=== PATIENT | male | born 1960 | race Caucasian/White ===

== ENCOUNTER → 2016-09-15 | Outpatient (CLI) | payer OTHER ==
[~2016-09-15] MED LIST: ASPI81TA28 PO; CLOP1TAB15 PO; EPP3/2 IM; HYDR25TA5 PO; MELO15TA4 PO; METO50TA16 PO; OMEP20CA9 PO
[2016-09-15 10:08] LABS: BASO ABS # 0.06 K/uL (0-0.2); COMPLETE YES; EOS % 4.5 %; IG% 0.2 %; LYMPH % 38.5 %; LYMPH ABS # 2.33 K/uL (1.2-3.4); MEAN CELL VOLUME 90.5 fL (80-100); MEAN CORPUSCULAR HEMOGLOBIN 32.5 pg (25-34); MEAN PLATELET VOLUME 11.1 fL (7.4-10.4); MONO % 7.9 %; NEUT % 47.9 %; PLATELET COUNT 181 K/uL (130-400); RED BLOOD COUNT 4.64 M/uL (4.7-6.1); WHITE BLOOD COUNT 6.05 K/uL (4.8-10.8)
[2016-09-15 10:22] LABS: ESTIMATED AVERAGE GLUCOSE 120 mg/dl; HA1C FLAG Normal (Normal)
[2016-09-15 10:35] LABS: ALT/SGPT 26 U/L (12-78); AST/SGOT 15 U/L (15-37); BLOOD UREA NITROGEN 18 mg/dl (7-18); BUN/CREATININE RATIO 20.1 (10-20); CALCIUM 8.8 mg/dl (8.5-10.1); CARBON DIOXIDE 29 mmol/L (21-32); CHLORIDE 105 mmol/L (98-107); CREATININE 0.88 mg/dl (0.60-1.40); GLUCOSE 90 mg/dl (70-99); SODIUM 142 mmol/L (136-145)
[2016-09-15 10:50] LABS: ALB/GLOB RATIO 1.4 (0.9-2); ALKALINE PHOSPHATASE 98 U/L (45-117); CHOLESTEROL 125 mg/dl (0-200); CHOLESTEROL/HDL RATIO 3.7; HDL CHOLESTEROL 34 mg/dl; LDL CHOLESTEROL CALCULATED 74 mg/dl; PROSTATE SPECIFIC ANTIGEN 0.836 ng/ml (0.000-4.000); TRIGLYCERIDES 84 mg/dl (0-150); VERY LOW DENSITY LIPOPROT CALC 17 mg/dl
== END | disposition home or self-care (01) ==
LOC: C.LAB 08:58
PROVIDERS: ATTEND Internal Medicine
DX: I10 Essential (primary) hypertension (principal); R73.01 Impaired fasting glucose; Z12.5 Encounter for screening for malignant neoplasm of prostate; E78.00 Pure hypercholesterolemia, unspecified

== ENCOUNTER → 2017-08-01 | Outpatient (CLI) | payer OTHER | END | disposition home or self-care (01) | LOC: C.RDSM 11:14 | PROVIDERS: ATTEND Orthopaedic Surgery Sports Medicine | DX: M25.512 Pain in left shoulder (principal) ==

== ENCOUNTER → 2017-08-07 | Outpatient (CLI) | payer OTHER ==
--- NOTE | 2017-08-07 08:25 | DIAGNOSTIC IMAGING REPORT ---
R HAND MIN 3 VIEWS CLINICAL HISTORY: Bilateral hand pain. COMPARISON: Right hand radiographs January 17, 2017. FINDINGS: Alignment of the right hand is anatomic. Cortical irregularity of the distal shaft of the right fifth metacarpal is unchanged and suggests an old, healed fracture. No acute fracture or suspicious lesion is identified. No erosions are identified. There is moderate to severe osteoarthritis of the right first carpometacarpal joint. Mild osteoarthrosis noted within several additional articulations. IMPRESSION: 1. Moderate to severe osteoarthritis of the right first carpometacarpal joint. 2. Moderate osteoarthritis of the radiocarpal articulation. 3. No acute fracture. Electronically signed by: Chay Carrillo M.D. 08/07/2017 8:24 AM Dictated Date/Time: 08/07/2017 8:22 AM
--- NOTE | 2017-08-07 08:26 | DIAGNOSTIC IMAGING REPORT ---
L HAND MIN 3 VIEWS HISTORY: 57 years-old Male BILATERAL HAND PAIN acute bilateral hand pain. Pain is most pronounced in the region of the first and second metacarpals. COMPARISON: Right hand radiographs of same day TECHNIQUE: 3 views of the left hand FINDINGS: Mild triscaphe and mild to moderate first carpometacarpal osteoarthritis. Subcortical cystic changes are seen within the first metacarpal head. There is no acute fracture or subluxation identified. Soft tissues are unremarkable. No opaque foreign body. IMPRESSION: 1. No acute fracture or subluxation. 2. Mild triscaphe and mild to moderate first carpometacarpal osteoarthritis. The above report was generated using voice recognition software. It may contain grammatical, syntax or spelling errors. Electronically signed by: Micahel Funes M.D. 08/07/2017 8:25 AM Dictated Date/Time: 08/07/2017 8:23 AM
== END | disposition home or self-care (01) ==
LOC: C.RDSM 13:49
PROVIDERS: ATTEND Physician Assistant
DX: M79.641 Pain in right hand (principal)

== ENCOUNTER 2017-08-24 13:51 | Emergency (ER) | payer OTHER ==
[~2017-08-24] VITALS: Ht 175.3 cm; Wt 76.6 kg
[2017-08-24 13:57] VITALS: Ht 175.3 cm; Wt 76.6 kg
[2017-08-24] MEDS ORDERED: HYDR-5688 PO ×2 (14:06→15:26)
--- NOTE | 2017-08-24 14:59 | DIAGNOSTIC IMAGING REPORT ---
L-SPINE MIN 4 VIEWS ROUTINE CLINICAL HISTORY: Left lower back pain. Recent injury. COMPARISON: None FINDINGS: Alignment of the lumbar spine is anatomic. Vertebral body heights are maintained. There is no acute fracture. Disc spaces are preserved. There is mild multilevel endplate osteophytosis. There is mild multilevel facet arthrosis. Sacroiliac joints are intact. IMPRESSION: 1. No acute lumbar spine fracture or subluxation. 2. Mild multilevel degenerative disc disease and facet arthrosis of the lumbar spine. Electronically signed by: Chay Carrillo M.D. 08/24/2017 2:57 PM Dictated Date/Time: 08/24/2017 2:56 PM
[2017-08-24] MEDS ORDERED: CYCL10TA6 PO (15:26)
[2017-08-24 15:46] VITALS: BP 104/67; PULSE 63; TEMP 36.3; O2SAT 97
--- NOTE | 2017-08-24 17:21 | EMERGENCY ROOM VISIT NOTE ---
History First contact with patient: 14:01 Chief Complaint: BACK PAIN Stated Complaint: SORE BACK History of Present Illness The patient is a 57 year old male who presents to the Emergency Room with complaints of left lower back discomfort for the past 2 days after pushing a tractor in his garage. The patient reports that his back pain is mostly constant, and worsened with movement. He denies any pain extending into the buttock or down the leg. He denies any history of back injuries or chronic low back pain. He does report a history of generalized osteoarthritis of multiple joints. The patient reports that he did have some leftover hydrocodone at home that did help with his pain. He denies any bladder/bowel incontinence, saddle anesthesias or lower extremity weakness. He denies any other recent infections , and currently rates his discomfort a 10 out of 10 in triage. Review of Systems 10 system review was performed and was negative except for pertinent positives and negatives as indicated in history of present illness Past Medical/Surgical History Medical Problems: (1) CVA (cerebral vascular accident) (2) Hypertension (3) Kidney disease Social History Problems: (1) Polio Family History Diabetes mellitus FHx: cancer Hypertension Social History Smoking Status: Current Every Day Smoker Alcohol Use: none Drug Use: marijuana Marital Status: Housing Status: lives with family, lives with significant other Occupation Status: unemployed Current/Historical Medications Scheduled Aspirin (Aspirin Ec), 81 MG PO HS Clopidogrel (Plavix), 75 MG PO QAM Epinephrine (Epipen), 0.3 MG IM UD Hydrochlorothiazide (Hydrochlorothiazide), 25 MG PO QAM Meloxicam (Meloxicam), 15 MG PO QAM Metoprolol Tartrate (Lopressor) (Lopressor), 50 MG PO BID Omeprazole (Prilosec), 20 MG PO QAM Scheduled PRN Cyclobenzaprine Hcl (Flexeril), 10 MG PO TID PRN for spasm Hydrocodone/Acetaminophen 5MG/325MG ([place] 5MG/325MG), 1 TAB PO DAILY PRN for Pain Hydrocodone/Acetaminophen 5MG/325MG ([place] 5MG/325MG), 1-2 TABLET PO Q4H PRN for Pain Physical Exam Vital Signs Date Time Temp Pulse Resp B/P (MAP) Pulse Ox O2 Delivery O2 Flow Rate FiO2 08/24/17 15:46 36.3 63 18 104/67 97 08/24/17 13:57 36.3 63 18 104/67 97 Room Air Physical Exam CONSTITUTIONAL: Healthy and well nourished. Alert and oriented X 3 with positive affect. She appears in mild discomfort from pain. HEENT: Normocephalic, atraumatic. Pupils equal, round and reactive. NECK: Full active range of motion without discomfort. RESPIRATORY: Clear to auscultation bilaterally with no wheezing, crackles, rhonchi or stridor. CARDIOVASCULAR: Regular rate and rhythm with no murmurs, rubs or gallops. GASTROINTESTINAL: Bowel sounds present in all quadrants. Soft and nontender to palpation. MUSCULOSKELETAL: Examination shows tenderness to palpation through the left lumbar paraspinous muscle. Mild rigidity is noted when compared to the right. No focal tenderness through the central lumbar spine or SI joints. Negative logroll. Negative sitting straight leg raise. Ankle plantar/dorsiflexion strength is 5 out of 5. Pedal pulses are intact. INTEGUMENTARY: No rash or other significant dermatologic conditions noted. NEUROLOGIC: No focal neurologic deficits noted. Lower extremity deep tendon reflexes are 2+ and symmetric bilaterally with intact sensation. Medical Decision & Procedures ER Provider Diagnostic Interpretation: My interpretation of lumbar spine x-ray shows mild degenerative changes without evidence for fracture, subluxation, lordotic reversal or spondylolisthesis. Radiologist report is as follows: L-SPINE MIN 4 VIEWS ROUTINE CLINICAL HISTORY: Left lower back pain. Recent injury. COMPARISON: None FINDINGS: Alignment of the lumbar spine is anatomic. Vertebral body heights are maintained. There is no acute fracture. Disc spaces are preserved. There is mild multilevel endplate osteophytosis. There is mild multilevel facet arthrosis. Sacroiliac joints are intact. IMPRESSION: 1. No acute lumbar spine fracture or subluxation. 2. Mild multilevel degenerative disc disease and facet arthrosis of the lumbar spine. ED Course Patient history and physical exam were performed. Nurse's notes were reviewed. Vital signs were reviewed and were normal. The patient appears in mild discomfort. He refused any analgesics while in the emergency department. X- rays of the lumbar spine shows mild degenerative changes without any other acute findings. Was advised that his history and clinical exam are most consistent with a lumbar strain. He was provided a prescription for Flexeril. The patient is currently on Plavix, therefore cannot take NSAIDs; however, it is noted that the patient is on meloxicam 15 mg daily as needed for pain relief. He has been on meloxicam for many years without intolerance. The patient does have a bottle of hydrocodone that was filled last fall. He has approximately 12 pills left in the bottle. I did elect to provide another prescription for hydrocodone in case he needs. I did review the [place] prescription Drug Monitoring Program , showing no concerning red flags. I did encourage the patient to follow-up with his PCP as needed for any persistent symptoms. The patient was happy with plan of care, voiced understanding of all discharge instructions, and rated his discomfort a 4 out of 10 at the conclusion of my exam. Medical Decision [place] Drug Monitoring Program Search Results: patient reviewed within database, no issues identified Medication Reconcilliation Current Medication List: was personally reviewed by me Blood Pressure Screening Patient's blood pressure: Normal blood pressure Impression Primary Impression: Strain of lumbar region Departure Information Prescriptions Hydrocodone/Acetaminophen 5MG/325MG ([place] 5MG/325MG) Tab 1-2 TABLET PO Q4H Y for Pain, #20 TAB For Initial Treatment Prov: Ollie Agarwal PA 08/24/17 Cyclobenzaprine Hcl (FLEXERIL) 10 Mg Tab 10 MG PO TID Y for spasm, #21 TAB Prov: Ollie Agarwal PA 08/24/17 Referrals Adan Stack M.D. (PCP) Patient Instructions My [facility] Problem Qualifiers Primary Impression: Strain of lumbar region Encounter type: initial encounter Qualified Codes: S39.012A - Strain of muscle, fascia and tendon of lower back, initial encounter
== END 2017-08-24 15:49 | disposition home or self-care (01) ==
LOC: C.EDB 13:54 → C.EDD 15:49
DX: S39.012A Strain of muscle, fascia and tendon of lower back, initial encounter (principal); X50.0XXA Overexertion from strenuous movement or load, initial encounter; M19.90 Unspecified osteoarthritis, unspecified site; I10 Essential (primary) hypertension; Z86.73 Personal history of transient ischemic attack (TIA), and cerebral infarction without residual deficits; N28.9 Disorder of kidney and ureter, unspecified; Z83.3 Family history of diabetes mellitus; Z80.9 Family history of malignant neoplasm, unspecified; Z82.49 Family history of ischemic heart disease and other diseases of the circulatory system; F17.210 Nicotine dependence, cigarettes, uncomplicated; Z79.02 Long term (current) use of antithrombotics/antiplatelets; Z79.82 Long term (current) use of aspirin; Z79.899 Other long term (current) drug therapy

== ENCOUNTER → 2017-11-07 | Outpatient (CLI) | payer OTHER ==
[~2017-11-07] MED LIST changes: +HYDR-5688 PO; +MELO-83 PO; -MELO15TA4 PO
== END | disposition home or self-care (01) ==
LOC: C.RDSM 08:17
PROVIDERS: ATTEND Podiatrist
DX: M79.672 Pain in left foot (principal)

== ENCOUNTER → 2018-02-18 | Outpatient (CLI) | payer OTHER | END | disposition home or self-care (01) | LOC: C.RDSM 13:03 | PROVIDERS: ATTEND Family Medicine | DX: M54.12 Radiculopathy, cervical region (principal) ==

== ENCOUNTER 2023-10-05 23:51 | Inpatient (IN) ==
--- OUTSIDE RECORDS SUMMARY | 2023-10-05 23:57 | External Medical Summary | Summary of Care ---
Author Name Unknown Organization [facility] Address [address] [facility] [place] [address] Phone [phone] Care Team Providers Care Yield Improvement Engineer Name Role Phone Omar Frias MD Primary Care Provider [phone] Reason for Visit * Reason Onset Date Comments Test Results 07/04/2023 Encounter Details Date Type Department Care Team (Late st Contact Info) Description 07/04/2023 Telephone Family Practice [facility] [address] [place] [id number] Omar Frias MD [address] [place] [id number] Test Results Allergies Active Allergy Reactions Criticality Noted Date Comments Bee Venom Edema face/lips/tongue,Tachycardia High 0 09/08/2021 Varenicline 08/24/2022 Bad dreams Rosuvastatin 08/24/2022 UNKNOWN documented as of this encounter (statuses as of 10/03/2023) Medications Medication Sig Dispensed Refills Start Date End Date Status Aspirin 81 MG Oral Tablet Delayed Release Take 1 Tablet by mouth every evening. 0 Active Albuterol Sulfate HFA 108 (90 Base) MCG/ACT Inhalation Aerosol Solution 0 10/26/2021 Active Tiotropium [place] Monohydrate 2.5 MCG/ACT Inhalation Aerosol Solution (Spiriva Respimat) DAILY IN THE MORNING 0 03/06/2022 Active Polyethylene Glycol 3350 17 GM/SCOOP Oral Powder Take 17 g by mouth in the morning. 0 Active Losartan Potassium 100 MG Oral Tablet (Cozaar)Indications:HT N, goal below 130/80 Take 1 Tablet by mouth in the morning. 90 Tablet 3 09/21/2022 Active EpiPen 2-Alonzo 0.3 MG/0.3ML Injection Solution Auto-injectorIndicatio ns:Bee sting allergy For a severe reaction: Place orange end against the outer thigh, press firmly, hold in place for 10 seconds and go to the Emergency room. 1 Each 2 10/22/2022 Active Acetaminophen ER 650 MG Oral Tablet Extended Release Take 1 Tablet by mouth in the morning. 0 Active Diclofenac Sodium 1 % External Gel (Voltaren)Indications: Primary osteoarthritis of first carpometacarpal joint of right hand Apply topically to affected area 4 times a day as needed for Pain. Apply 2 grams 4 times daily to hands as needed for pain 100 g 5 12/25/2022 Active PARoxetine HCl 10 MG Oral Tablet (Paxil)Indications:[place] (generalized anxiety disorder) Take 1 Tablet by mouth in the morning. 90 Tablet 3 03/01/2023 Active amLODIPine Besylate 5 MG Oral Tablet (Norvasc)Indications:H TN, goal below 140/90 Take 1 Tablet by mouth in the morning. 90 Tablet 3 03/01/2023 Active Fluticasone-Salmeterol 250-50 MCG/ACT Inhalation Aerosol Powder Breath Activated (Advair Diskus)Indications:IT SYSTEMS ADMINISTRATOR D, group A, by 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 ([facility]) Inhale 1 Puff by mouth in the morning and 1 Puff before bedtime. 60 Each 5 04/02/2023 Active Nicotine 21 MG/24HR Transdermal Patch 24 Hour (Nicoderm CQ)Indications:Cigaret te smoker Place 1 Patch over 24 hours topically on the skin daily. 28 Patch 0 04/04/2023 Active Atorvastatin Calcium 80 MG Oral Tablet (Lipitor) Take 1 Tablet by mouth every evening. 90 Tablet 3 05/08/2023 Active Solifenacin Succinate 5 MG Oral Tablet (VESIcare) take 1 tablet by mouth every morning 30 Tablet 1 06/20/2023 Active traMADol HCl 50 MG Oral Tablet (Ultram)Indications:Ri b pain on left side Take 1 Tablet by mouth every 6 hours as needed for Severe pain. 30 Tablet 0 07/03/2023 Active Hospital, Clinic, or Other Facility Administered Medication Ordered Dose Route Frequency Start Date End Date Status Albuterol Sulfate (Proventil) (2.5 MG/3ML) 0.083% inhalation solution 2.5 mgIndications:COPD, group A, by 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 ([facility]) 2.5 mg NEBULIZER ONCE PRN 04/02/2023 04/01/2024 Acti ve documented as of this encounter (statuses as of 10/03/2023) Active Problems Problem Noted Date Diagnosed Date Gastroesophageal reflux disease without esophagi tis 07/03/2023 Dyslipidemia 07/03/2023 Tobacco use disorder 07/03/2023 COPD, group A, by 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 12/31 Overview: Per COPD GOLD Classification DDD (degenerative disc disease), cervical 2022 Ureteral cancer, left 09/21/2022 HTN, goal below 130/80 09/21/2022 Carotid stenosis, bilateral 09/21/2022 Chronic idiopathic constipation 09/21/2022 History of poliomyelitis 09/21/2022 Primary osteoarthritis involving multiple joints 09/21/2022 TIA (transient ischemic attack) 08/24/2022 Overview: AT 47YO- no residual affects documented as of this encounter (statuses as of 10/03/2023) Resolved Problems Problem Noted Date Diagnosed Date Resolved Date Bladder mass 02/22/2023 07/03/2023 Primary osteoarthritis of fi rst carpometacarpal joint of right hand 12/25/202206/21 RUQ abdominal pain 09/21/2022 COPD, severity to be determined 09/21/2022 01/03/2023 Overview: Per COPD GOLD Classification documented as of this encounter (statuses as of 10/03/2023) Immunizations Name Administration Dates Next Due COVID-19 mRNA, LNP-s, No Pre serve, 2-Dose Series (Glowbl) 06/21/2021,10/08/2020,09/17/2020 COVID-19, LNP-s, No Preserve , Giovani-sucrose, Ages 12+ (Glowbl) 12/15/2021 Covid-19, Mrna, Lnp-s, Pf, B ivalent, 30 Mcg, IM, 12 yrs and above (Pfizer) 05/15/2022 Pneumococcal Conjugate Vacci ne, 20-valent ([id number]) 12/25/2022 Seasonal Influenza, PF, 6 M & above, IM , (FluLaval or Fluzone) 05/03/2020,05/11/2019,06/23/2018,2014,04/21/2015 Seasonal Influenza, Quadriva lent Hd (Fluzone Hd) 04/02/2023 Seasonal Influenza, Recombin ant, RIV4, PF, (Flublock) 05/15/2022,05/03/2020,05/11/2019 TDAP (age 10 and older)(Boostrix) 05/10/2015 Zoster Vaccine Recombinant (Shingrix) 02/01/2022 ,09/25/2021 documented as of this encounter Social History Tobacco Use Types Packs/Day Years Used Date Smoking Tobacco: Former Cigarettes 1 40 0 03/22/1983 - 03/22/2023 Smokeless Tobacco: Never Alcohol Use Standard Drinks/Week Comments Not Currently 0 (1 standard drink = 0.6 oz pur e alcohol) PHQ-2 Answer Date Recorded PHQ Adult Total Score 2 12/04/2022 Hunger Vital Sign Answer Date Recorded Within the past 12 months, y ou worried that your food would run out before you got the money to buy more. Never true 12/26/19 23 Within the past 12 months, t he food you bought just didn't last and you didn't have money to get more. Never true 12/25/2022 Sex and Gender Information Value Date Recorded Sex Assigned at Male 12/25/2022 10:01 AM EDT Gender Identity Male 12/25/2022 10:01 AM EDT Sexual Orientation Straight 12/25/2022 10 :01 AM EDT Job Start Date Occupation Industry Not on file Not on file Not on file documented as of this encounter Miscellaneous Notes * Telephone Encounter - Jessika Castillo LPN - 07/04/2023 2:27 PM EST Still in process. Watch for final result. * Telephone Encounter - Peterson Bright OSA - 07/04/2023 11:38 AM EST Who is Requesting Test Results: Pt daughter Primary Care Provider : Omar Frias MD Tests Results Requested : XR Date of Test : 07/03/23 Location of Test: Ordering Provider: Dr Frias Callback Number: [phone] Patient has been made aware that the turnaround time for test results are typically as follows: Laboratory results = within 2-3 days ([facility]), 3-5 days (Non-[facility], ie. [facility]) Urine Cultures = within 2-3 days depending on growth within the culture Pathology results (biopsy results/PAP) = 1-2 weeks Radiology results = about 1 week Cologuard results = within 2 weeks from the shipment date COVID testing = about 24 hours documented in this encounter Plan of Treatment Upcoming Encounters Date Type Department Care Team (Late st Contact Info) Description 10/15/2023 4:00 PM EDT Procedure Only Urology, [facility] [address] [facility] [place] [id number] Joshua Adan MD [address] [place] [address] 02/18/2024 1:15 PM EDT Office Visit Hematology/Oncology [facility] [place] [address] [facility] [place] [id number] Jacob Rhodes MD [address] [facility] [address] Scheduled Procedures Name Priority Associated Diagnoses Date/Ti me COLONOSCOPY FLEXIBLE PROXIMAL DIAGNOSTIC Recall History of colon polyps Health Maintenance Due Date Last Done Comments HIV Screening 1975 Alpha-1 Antitrypsin 02/17/1976 Hepatitis C Screening 02/17/1976 *COPD SEVERITY VERIFIED BY PFT 09/24/2022 COVID-19 Vaccine ( season) 2023 05/15/2022, 12/15/2021, 06/21/2021, Additional history exists Depression Screening 12/05/2023 12/04/2022 GFR 03/06/2024 03/06/2023, 01/19, 08/24/2022, Additional history exists O2 ASSESSMENT COMPLETED IN PAST YEAR FOR COPD 03/13/2024 03/13/2023 DTaP,Tdap,and Td Vaccines (2 - Td or Tdap) 05/10/2025 05/10/2015 Albumin/Creatinine Ratio 12/25/2025 12/25/2022 Diabetes Screening 03/06/2026 03/06/2023, 0 08/24/2022, 11/05/2011 COLONOSCOPY-EVERY 5 YRS AGES 18-100 09/26/2027 09/25/2022, 09/25/2022 Zoster Vaccines Completed 02/01/2022, 09/25/2021 LUNG CANCER SCREENING - USE SMARTSET [id number] Completed 08/29/2022 Colonoscopy Discontinued 09/25/2022, 09/25/2022 Colorectal Cancer Screening Discontinued Pneumococcal Vaccine: 65+ Years Completed 12/25/2022 AAA Screening Completed 03/07/2023, 02/06/2023 Influenza Vaccine (FLU shot) Completed 04/02/2023, 05/15/2022, 05/03/2020, Additional history exists Cologuard Discontinued Fecal Occult Blood Test Discontinued GARDASIL-HPV IMMUNIZATION SERIES Aged Out No longer eligible based on patient's age to complete this topic Hepatitis B Aged Out No longer eligi ble based on patient's age to complete this topic MENINGOCOCCAL (MENACTRA/MENVEO) Aged Out No longer eligible based on patient's age to complete this topic Sigmoidoscopy Discontinued documented as of this encounter Medical Devices Not on filedocumented as of this encounter Advance Directives Latest Code Status on File Code Status Date Activated Date Inactivated Comments Full Code 03/13/2023 9:32 AM 03/13/2023 4:39 PM This order reflects the patients wishes and were consensually agreed upon. Question Answer Comments Discussion of Advance Directives occurred with: Patient Code Status History Code Status Date Activated Date Inactivated Comments Full Code 03/13/2023 7:07 AM 03/13/2023 9:32 AM This order reflects the patients wishes and were consensually agreed upon. Question Answer Comments Discussion of Advance Directives occurred with: Patient Full Code 10/22/2022 8:32 AM 10/22/2022 2:13 PM This or john paul reflects the patients wishes and were consensually agreed upon. Question Answer Comments Discussion of Advance Directives occurred with: Patient Full Code 10/22/2022 6:33 AM 10/22/2022 8:32 AM This or john paul reflects the patients wishes and were consensually agreed upon. Question Answer Comments Discussion of Advance Directives occurred with: Patient Care Teams Yield Improvement Engineer Relationship Specialty Start Date End Date Omar Frias MD [address] [place] [id number] PCP - General Family Medicine 07/03/23 documented as of this encounter
[2023-10-06] MEDS: NITROGLYCERIN SL 0.4 MG/TAB TAB SL PRN (00:01)
--- NOTE | 2023-10-06 00:12 | Emergency Department Note ---
History of Present Illness General Chief complaint: Heart Alert Stated complaint: HEART ALERT Time Seen by Provider: 10/05/23 23:56 Source: patient, family ( who arrived at the bedside), EMS (I talked to the quality coordinator on the med phone and also gave ALS medical command as well as talked to them upon arrival) and old records reviewed (10/26/22-pulmonary visit for follow-up for COPD and pulmonary fibrosis) Mode of arrival: EMS Limitations: no limitations History of Present Illness Maximum Pain Intensity: 10 This patient is 63-year-old male who is brought in by EMS after having sudden onset of crushing chest pain radiating to his arms. Upon arrival they tell me he was pale and diaphoretic with 10 out of 10 chest pain no shortness of breath he did have some nausea and vomited. No history of cardiac disease. He does have a history of having a stroke and recent bladder cancer. He tells me that he has a strong family history of cardiac disease. I did talk to the paramedics prior to arrival and gave ALS medical command. He had received fentanyl IV for the pain and also nitro x 4. The paramedics called me after the first 1 and transmitted the EKG his pressure had dropped after receiving 1 nitro glycerin into the 60s however he remained stable after that after they opened up the IV fluids. Based on his EKG I did call the heart alert prior to the arrival. Upon arrival the patient is less diaphoretic than he was and the pain is 8 out of 10 but he looks well. Home Medications Medication Instructions Recorded Confirmed Type aspirin 81 mg tablet,delayed 81 mg PO HS 04/09/18 10/06/23 History release metoprolol tartrate 50 mg tablet 50 mg PO BID #60 tabs 07/24/22 10/06/23 Rx (Lopressor) acetaminophen 650 mg 1,300 mg PO Q12H PRN Pain 08/03/22 10/06/23 History tablet,extended release (Tylenol Arthritis Pain) atorvastatin 80 mg tablet 80 mg PO QPM 08/03/22 10/06/23 History ezetimibe 10 mg tablet (Zetia) 10 mg PO QAM #90 tabs 09/24/22 10/06/23 Rx albuterol sulfate 90 mcg/actuation 2 puff inhalation Q6H PRN 10/26/22 10/06/23 Rx aerosol inhaler Shortness Of Breath Or Wheezing #18 grams tiotropium bromide 2.5 2 puff inhalation QAM #4 grams 10/26/22 10/06/23 Rx mcg/actuation mist for inhalation (Spiriva Respimat) albuterol sulfate 2.5 mg/3 mL 2.5 mg inhalation DIRECTED PRN 10/06/23 10/06/23 History (0.083 %) solution for nebulization Shortness Of Breath Or Wheezing amlodipine 5 mg tablet 5 mg PO QAM 10/06/23 10/06/23 History diclofenac sodium 1 % topical gel 2 g topical QID PRN Pain 10/06/23 10/06/23 History (Voltaren Arthritis Pain) epinephrine 0.3 mg/0.3 mL 0.3 mg IM DIRECTED PRN 10/06/23 10/06/23 History injection, auto-injector (EpiPen) anaphylaxis fluticasone 250 mcg-salmeterol 50 1 inh inhalation BID 10/06/23 10/06/23 History mcg/dose blistr powdr for inhalation (Advair Diskus) losartan 100 mg tablet 100 mg PO QAM 10/06/23 10/06/23 History omeprazole 20 mg capsule,delayed 20 mg PO QAM 10/06/23 10/06/23 History release paroxetine HCl 10 mg tablet 10 mg PO QAM 10/06/23 10/06/23 History polyethylene glycol 3350 17 17 g PO DAILY 10/06/23 10/06/23 History gram/dose oral powder (Miralax) solifenacin 5 mg tablet 5 mg PO QAM 10/06/23 10/06/23 History tramadol 50 mg tablet 50 mg PO Q6H PRN Pain 10/06/23 10/06/23 History Allergies Allergy/AdvReac Type Severity Reaction Status Date / Time rosuvastatin [From Crestor] AdvReac Intermediate Headache Verified 10/05/23 23:58 varenicline [From Chantix] AdvReac Intermediate nightmares Verified 10/05/23 23:58 bee venom Allergy Severe Swelling Uncoded 10/05/23 23:58 of Lip/Tongue/Throat Past Med/Surg History Medical History Kidney stones Hyperlipidemia Hypertension History of COVID-19 Sept 2022 > mild COPD (chronic obstructive pulmonary disease) rare res inh use Carotid stenosis S/p CEA 2006 S/p right common carotid artery stent placement 2018 due to recurrent MARVIN stenosis Impaired fasting glucose Hgb A1C 6.0 in 08/2021 Peptic ulcer Facet syndrome, lumbar GERD (gastroesophageal reflux disease) TIA (transient ischemic attack) (01/18/14) Age 47 > then carotid stent placed [place] 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 Kidney disease no specialist Surgical History History of common carotid artery stent placement April 2019 due to recurrent MARVIN stenosis History of colonoscopy [place] teeth extracted H/O carotid endarterectomy (11/08/06) History of shoulder surgery right Family History Father Stroke syndrome Laryngeal cancer Peptic ulcer Mother Myocardial infarction Sister Myocardial infarction Cerebral arterial aneurysm Brother Hypertension Unknown Cardiovascular disorder Cerebral arterial aneurysm Grandfather Skin cancer Social History Smoking Status: Former smoker Tobacco Type: Cigarettes Age Started Using Tobacco: 15; packs per day: 1; Cigarettes Per Day: 20; Second Hand Exposure: Yes; Do You Dip or Chew Tobacco: No; Hx Alcohol Use: No Hx Substance Use: Yes Substance Use Type Other:: occasional > advised Preferred Language: Icelandic Communication Ability: Effective Customer Pricing Manager Required: No Beliefs That Will Affect Care: None marital status: Current Living Situation: Spouse current occupational status: disabled Feels Safe at Home: Yes Assistive Devices: None Review of Systems A total of 10 systems reviewed and were otherwise negative Physical Exam Vital Signs Vital Signs - 24 hr 10/05/23 23:56 10/05/23 23:56 Temperature 36.9 C Temperature Source Oral Pulse Rate 57 L Respiratory Rate 18 Respiratory Effort / Characteristics Non-Labored Spontaneous SOB on Exertion Respiratory Depth Normal Blood Pressure 122/90 Blood Pressure Mean 100 Pulse Oximetry 97 Oxygen Delivery Method Room Air Sepsis Recent Fever Within 48 Hours No Sepsis New/Unexplained Change in Mental Status No Sepsis Action Taken by Nursing No Action Required General: Well developed well nourished middle-age male who appears uncomfortable at times secondary to chest pain but in no acute respiratory distress, breathing comfortably on room air. Normal speech HEENT: Normal cephalic atraumatic. Pupils are equal round and reactive to light. Extraocular movements are intact. Oropharynx is pink with moist mucous membranes. No swelling of the mouth lips or tongue. Neck: Supple with a midline trachea. No meningeal signs or stiffness, no JVD or bruits. No Stridor. Chest: Clear to auscultation bilaterally. No wheezes or rhonchi. No increased work of breathing. Heart: Regular rate and rhythm without murmurs or gallops. Abdomen: Soft nontender, nondistended without rebound guarding or rigidity. Extremities: No cyanosis clubbing or edema. No calf tenderness or assymetry Spine/Back. Non tender to palpation. No CVA tenderness Skin: Good turgor without rashes. Neurologic exam: Cranial nerves two through 12 are intact. Motor and sensation are intact and symmetrical throughout. Course Administered Medications Nitroglycerin (Nitroglycerin Sl 0.4 Mg/Tab Tab) 0.4 mg SL Q5M PRN PRN Reason: Chest Pain Stop: 11/04/23 23:55 Last Admin: 10/06/23 00:01 Dose: 0.4 mg Documented By: FLYNN Discontinued Medications Fentanyl Citrate (Fentanyl Citrate Pf 100 Mcg/2 Ml Vial) Confirm Administered Dose 100 mcg .ROUTE .teextee-MED ONE Stop: 10/06/23 00:00 Last Increment: 10/06/23 00:55 Dose: 50 mcg Documented By: ANNETTA Furosemide (Furosemide 40 Mg/4 Ml Vial) Confirm Administered Dose 40 mg IV .STProject [employer]- MED ONE Stop: 10/06/23 00:46 Last Admin: 10/06/23 00:58 Dose: 40 mg Documented By: ANNETTA Heparin Sodium (Porcine) (Heparin (Porcine) 1000 Unit/Ml 10 Ml ([facility] Use Only)) Confirm Administered Dose 10,000 units .ROUTE .STProject [employer]-MED ONE Stop: 10/05/23 23:59 Last Admin: 10/06/23 00:55 Dose: 9,000 units Documented By: ANNETTA Heparin Sodium/Sodium Chloride (Heparin In Nss Infusion 1000 Unit/500 Ml (2 U/Ml) Bag) Confirm Administered Dose 3,000 units IV .STProject [employer]-MED ONE Stop: 10/06/23 00:00 Last Admin: 10/06/23 00:22 Dose: 3,000 units Documented By: ANNETTA Ioversol (Optiray 350) Confirm Administered Dose 1 ml .ROUTE .STK-MED ONE Stop: 10/06/23 00:00 Last Admin: 10/06/23 00:57 Dose: 110 ml Documented By: ANNETTA Midazolam HCl (Midazolam Hcl 1 Mg/Ml 2ml Vial) Confirm Administered Dose 2 mg .ROUTE .STK-MED ONE Stop: 10/05/23 23:59 Last Admin: 10/06/23 00:55 Dose: 2 mg Documented By: ANNETTA Nicardipine HCl (Nicardipine Hcl Inj 2.5 Mg/Ml 10 Ml Amp) Confirm Administered Dose 25 mg .ROUTE .STK-MED ONE Stop: 10/05/23 23:59 Last Admin: 10/06/23 00:21 Dose: 25 mg Documented By: ANNETTA Nitroglycerin/Dextrose (Nitroglycerin/D5w 100mcg/Ml 20ml Syr) Confirm Administered Dose 2,000 mcg .ROUTE .STK-MED ONE Stop: 10/06/23 00:00 Last Admin: 10/06/23 00:22 Dose: 2,000 mcg Documented By: ANNETTA Ticagrelor (Ticagrelor 90 Mg Tab) Confirm Administered Dose 180 mg .ROUTE .STK- MED ONE Stop: 10/06/23 00:13 Last Admin: 10/06/23 00:23 Dose: 180 mg Documented By: ANNETTA Critical Care Time Critical Care Time: Yes Total Critical Care Time: 30 Due to the patient's acute STEMI, discussion with prehospital [facility] medical command to help expedite his care, need time sensitive intervention, discussion with cardiology, family and the hospitalist as well as frequent reassessment and evaluation, I have personally spent greater than 30 minutes of critical care time in the direct management of this patient. This includes bedside care, interpretation of diagnostic studies, and testing, discussion with consultants, patient, and family members, and other required patient management activities. This 30 minutes is in excess of all separately billable procedures. Medical Decision Making Differential Diagnosis STEMI, acute coronary syndrome, CHF, pneumonia, aortic pathology, infection, myocarditis Medical Records Attestation: I reviewed the patient's medical records. Home Medications Current Medication List: was personally reviewed by me Laboratory Data Attestation: I reviewed the patient's lab results. 10/05/23 23:58 10/05/23 23:58 Lab Results 10/05/23 10/06/23 10/06/23 Range/Units 23:58 00:07 00:29 WBC 10.92 H (4.8-10.8) K/ul RBC 4.25 L (4.70-6.10) M/uL Hgb 13.8 L (14.0-18.0) g/dl POC Hgb 13.3 L (14.0-18.0) g/dl Hct 39.0 L (42.0-52.0) % POC Hct 39 L (42-52) % MCV 91.8 (80.0-100.0) fL MCH 32.5 (25.0-34.0) pg MCHC 35.4 (32.0-36.0) g/dL RDW Std Deviation 46.2 (36.4-46.3) fL RDW Coeff of Karen 13.6 (11.5-14.5) % Plt Count 187 (130-400) K/uL MPV 10.7 (9.4-12.4) fL Immature Gran % (Auto) 0.5 % Neut % (Auto) 50.5 % Lymph % (Auto) 35.2 % [place] % (Auto) 10.7 % Eos % (Auto) 2.4 % Baso % (Auto) 0.7 % Neut # (Auto) 5.52 (1.40-6.50) K/uL Lymph # (Auto) 3.84 H (1.20-3.40) K/uL [place] # (Auto) 1.17 H (0.11-0.59) K/uL Eos # (Auto) 0.26 (0.00-0.50) K/uL Baso # (Auto) 0.08 (0.00-0.20) K/uL Immature Gran # (Auto) 0.05 (0.01-0.20) K/uL PT 11.5 (9.0-12.0) Seconds INR 1.1 (0.9-1.1) APTT 27 (21-31) Seconds PTT Ratio 1.0 Activ Coag Time Kaolin 369 H (94-140) SECONDS POC Sodium 144 (135-144) mmol/L Sodium 139 (136-145) mmol/L POC Potassium 3.3 (3.3-5.0) mmol/L Potassium 3.4 L (3.5-5.1) mmol/L POC Chloride 107 (101-112) mmol/L Chloride 111 H (98-107) mmol/L Carbon Dioxide 22 (21-32) mmol/L POC Total CO2 20 L (24-31) mmol/L Anion Gap 6 (3-11) POC Anion Gap 22.0 (16-25) mmol/L POC BUN 10 (7-18) mg/dl BUN 11 (6-23) mg/dl Creatinine 0.88 (0.6-1.4) mg/dl POC Creatinine 0.9 (0.6-1.3) mg/dl Est Cr Clr Drug Dosing 92.8 ml/min Est GFR ( Amer) 104.5 ml/min Est GFR (Non-Af Amer) 90.1 ml/min BUN/Creatinine Ratio 12.5 (10-20) Glucose 113 H (70-99(Fasting)) mg/dl POC Glucose (other) 113 H (70-99) mg/dl Calcium 8.3 L (8.6-10.3) mg/dl POC Ioniz Calcium Sary 1.11 L (1.12-1.32) mmol/l Magnesium 1.8 (1.7-2.4) mg/dl Total Bilirubin 0.5 (0.2-1.0) mg/dl AST 16 (13-39) U/L ALT 12 (7-52) U/L Alkaline Phosphatase 90 (34-104) U/L Total Creatine Kinase 62 (30-223) U/L Troponin I High Sens 106.6 H* (0-20) pg/ml B-Natriuretic Peptide 56 (0-100) pg/ml Total Protein 6.3 (6.0-8.3) gm/dl Albumin 3.8 (3.4-5.0) gm/dl Globulin 2.5 (2.5-4.0) gm/dl Albumin/Globulin Ratio 1.5 (0.9-2) Lipase 22 (11-82) U/L TSH 5.153 H (0.300-4.500) uIu/ml Imaging Data Attestation: I personally reviewed and interpreted this imaging study as follows: My Impression: Chest x-rayhe has some increased interstitial markings which I think are most likely related to chronic lung disease/fibrosis which he has. There could be a CHF component. His mediastinum does not appear to be wide ECG Data Attestation: I personally reviewed and interpreted this ECG as follows: Indication: + chest pain and + nausea Rate (beats per minute): 60 Rhythm: + normal sinus ECG Intervals/blocks: + Normal QRS and + Normal QT ECG [place]: + Normal ECG ST segments: + ST elevation (Anterolateral) ECG Findings: + Other (Reciprocal ST depression inferiorly) Comparison ECG Date: from (05/19/15) Change: the following changes noted (STEMI changes are now present) MDM Narrative This patient comes in as scribed above. He has a history very concerning for a STEMI in conjunction with his EKG that I looked at before the patient arrived. They called and I gave Cha medical command. The patient did receive aspirin prior to arrival as well as nitroglycerin x 4 the initial nitroglycerin did drop his blood pressure but he tolerated the other is fine. He did receive a 1 L ivnormal saline fluid bolus he also received fentanyl 100 mcg IV. After discussing the case with the quality coordinator on the telephone as well as reviewing the EKG I called a heart alert to help expedite his care. This is called 22 minutes prior to his arrival. Upon arrival the patient was placed in room 81. The cardiac team did arrive promptly and the patient was evaluated by Dr. Khan in the ED his blood pressures remained stable. He did receive additional nitroglycerin sublingual here. He does have good IV access with 2 large-bore 18-gauge IVs. Chest x-ray was obtained and he has no widened mediastinum. He has some interstitial lung disease which is likely from his known COPD/pulmonary fibrosis although CHF component would be difficult to exclude. He is not hypoxemic and appears in no respiratory distress. Dr. Khan and the [facility] team did take the patient emergently to the [facility] for cardiac cath and revascularization. I also did call Dr. Solorzano, who is the [facility] Hospitalist /to help expedite his care and admission after his cath procedure. I discussed the case with Dr. Solorzano as well. The patient's initial troponin was 100 and elevated consistent with his acute STEMI. He has no electrolyte or metabolic abnormalities. He was emergently sent to the [facility]. Continuous cardiac monitoring: Orders placed in EMR for continuous cardiac monitoring. Upon my evaluation patient is to be normal sinus rhythm rate of 60. ST segments appear to be elevated on the monitor Impression & Plan Acute ST elevation myocardial infarction (STEMI), Chest pain, Nausea, History of stroke Discharge Plan Visit Data Chief Complaint: Heart Alert Stated Complaint: HEART ALERT ED Provider: Luis Ann Discharge Problem: Acute ST elevation myocardial infarction (STEMI), Chest pain, Nausea, History of stroke Patient Disposition: Admitted As Inpatient Discharge Instructions Interventions: ED Discharge Assessment Last Done: 10/06/23 00:08 Discharge Problem: Acute ST elevation myocardial infarction (STEMI) Qualifiers: Involved coronary artery: unspecified coronary artery Qualified Code(s): I21.3 - ST elevation (STEMI) myocardial infarction of unspecified site Chest pain Qualifiers: Chest pain type: unspecified Qualified Code(s): R07.9 - Chest pain, unspecified
[2023-10-06 00:13] LABS: Basophils # (auto) 0.08 K/uL (0.00-0.20); Basophils % (auto) 0.7 %; Eosinophils # (auto) 0.26 K/uL (0.00-0.50); Eosinophils % (auto) 2.4 %; Hemoglobin 13.8 g/dl (14.0-18.0); Immature Granulocytes # (auto) 0.05 K/uL (0.01-0.20); Immature Granulocytes % (auto) 0.5 %; Lymphocytes # (auto) 3.84 K/uL (1.20-3.40); Lymphocytes % (auto) 35.2 %; Mean Corpuscular Hemoglobin 32.5 pg (25.0-34.0); Mean Corpuscular Hgb Conc 35.4 g/dL (32.0-36.0); Mean Corpuscular Volume 91.8 fL (80.0-100.0); Mean Platelet Volume 10.7 fL (9.4-12.4); Monocytes # (auto) 1.17 K/uL (0.11-0.59); Monocytes % (auto) 10.7 %; Neutrophils # (auto) 5.52 K/uL (1.40-6.50); Neutrophils % (auto) 50.5 %; Platelet Count 187 K/uL (130-400); RDW Coefficient of Variation 13.6 % (11.5-14.5); RDW Standard Deviation 46.2 fL (36.4-46.3); Red Blood Count 4.25 M/uL (4.70-6.10); White Blood Count 10.92 K/ul (4.8-10.8)
[2023-10-06 00:20] LABS: INR 1.1 (0.9-1.1); Partial Thromboplastin Time 27 Seconds (21-31); Prothrombin Time 11.5 Seconds (9.0-12.0)
[2023-10-06] MEDS: niCARdipine HCL INJ 2.5 MG/ML 10 ML AMP ONE (00:21)
[2023-10-06] MEDS: NITROGLYCERIN/D5W 100MCG/ML 20ML SYR ONE (00:22)
[2023-10-06] MEDS: TICAGRELOR 90 MG TAB ONE (00:23)
[2023-10-06 00:24] LABS: iSTAT Creatinine 0.9 mg/dl (0.6-1.3); iSTAT Hemoglobin 13.3 g/dl (14.0-18.0); iSTAT Ionized Calcium 1.11 mmol/l (1.12-1.32); iSTAT Potassium 3.3 mmol/L (3.3-5.0)
[2023-10-06 00:30] LABS: Albumin Globulin Ratio 1.5 (0.9-2); Albumin Level 3.8 gm/dl (3.4-5.0); BUN Creatinine Ratio 12.5 (10-20); Bilirubin,Total 0.5 mg/dl (0.2-1.0); Calcium 8.3 mg/dl (8.6-10.3); Creatinine Clr Calc Pharmacy 92.8 ml/min; Est GFR (African American) 104.5 ml/min; Est GFR (Non-African American) 90.1 ml/min; Globulin 2.5 gm/dl (2.5-4.0); Magnesium 1.8 mg/dl (1.7-2.4); Potassium 3.4 mmol/L (3.5-5.1); Total Protein 6.3 gm/dl (6.0-8.3)
[2023-10-06 00:46] LABS: Thyroid Stimulating Hormone 5.153 uIu/ml (0.300-4.500)
[2023-10-06 00:48] LABS: Troponin I High Sensitivity 106.6 pg/ml (0-20)
[2023-10-06] MEDS: fentaNYL citrate PF 100 MCG/2 ML VIAL ONE (00:55)
[2023-10-06] MEDS: MIDAZOLAM HCL 1 MG/ML 2ML VIAL ONE (00:55)
[2023-10-06] MEDS: HEPARIN (PORCINE) 1000 UNIT/ML 10 ML (CATH LAB USE ONLY) ONE (00:55)
[2023-10-06] MEDS: OPTIRAY 350 ONE (00:57)
[2023-10-06] MEDS: FUROSEMIDE 40 MG/4 ML VIAL IV ONE (00:58)
--- NOTE | 2023-10-06 00:58 | Cardiology Consultation ---
Date of Consultation October 06, 2023 Assessment & Plan (1) Acute ST elevation myocardial infarction (STEMI): Presentation consistent with anterior STEMI and recommend proceeding with emergent cardiac catheterization and likely primary PCI. No apparent contraindications to procedure. Discussed risks, benefits, alternatives of procedure with patient and family and they are willing to proceed. Further recommendations pending findings of coronary angiography. History of Present Illness History of Present Illness Mr. Rao is a 63-year-old man here with acute chest pain and ECG concerning for acute SC. Patient seen emergently in the ED after heart alert activated on arrival. No prior cardiac history. Has a history of carotid artery disease post prior right CEA and later TCAR with [facility] vascular surgery. Also has hypertension, dyslipidemia and had a prior TIA. Other medical issues include COPD, GERD/PUD, longstanding prior tobacco use and significant family history of CAD involving father and multiple siblings. Chest pain began around 9 PM this evening, approximately 3 hours prior to arrival. Pain occurred with waking from sleep. Does describe some brief episodes of chest burning over the preceding few days. Pain persisted tonight with associated nausea. Chest pain at time of arrival was mild but progressed while in ED. At time of interview chest pain 10 out of 10 radiating to arms bilaterally. Hemodynamically stable. EKG showed sinus rhythm with anterior ST elevations. Allergies Allergy/AdvReac Type Severity Reaction Status Date / Time rosuvastatin [From Crestor] AdvReac Intermediate Headache Verified 10/05/23 23:58 varenicline [From Chantix] AdvReac Intermediate nightmares Verified 10/05/23 23:58 bee venom Allergy Severe Swelling Uncoded 10/05/23 23:58 of Lip/Tongue/Throat Home Medications Medication Instructions Recorded Confirmed Type aspirin 81 mg tablet,delayed 81 mg PO HS 04/09/18 10/06/23 History release metoprolol tartrate 50 mg tablet 50 mg PO BID #60 tabs 07/24/22 10/06/23 Rx (Lopressor) acetaminophen 650 mg 1,300 mg PO Q12H PRN Pain 08/03/22 10/06/23 History tablet,extended release (Tylenol Arthritis Pain) atorvastatin 80 mg tablet 80 mg PO QPM 08/03/22 10/06/23 History ezetimibe 10 mg tablet (Zetia) 10 mg PO QAM #90 tabs 09/24/22 10/06/23 Rx albuterol sulfate 90 mcg/actuation 2 puff inhalation Q6H PRN 10/26/22 10/06/23 Rx aerosol inhaler Shortness Of Breath Or Wheezing #18 grams tiotropium bromide 2.5 2 puff inhalation QAM #4 grams 10/26/22 10/06/23 Rx mcg/actuation mist for inhalation (Spiriva Respimat) albuterol sulfate 2.5 mg/3 mL 2.5 mg inhalation DIRECTED PRN 10/06/23 10/06/23 History (0.083 %) solution for nebulization Shortness Of Breath Or Wheezing amlodipine 5 mg tablet 5 mg PO QAM 10/06/23 10/06/23 History diclofenac sodium 1 % topical gel 2 g topical QID PRN Pain 10/06/23 10/06/23 History (Voltaren Arthritis Pain) epinephrine 0.3 mg/0.3 mL 0.3 mg IM DIRECTED PRN 10/06/23 10/06/23 History injection, auto-injector (EpiPen) anaphylaxis fluticasone 250 mcg-salmeterol 50 1 inh inhalation BID 10/06/23 10/06/23 History mcg/dose blistr powdr for inhalation (Advair Diskus) losartan 100 mg tablet 100 mg PO QAM 10/06/23 10/06/23 History omeprazole 20 mg capsule,delayed 20 mg PO QAM 10/06/23 10/06/23 History release paroxetine HCl 10 mg tablet 10 mg PO QAM 10/06/23 10/06/23 History polyethylene glycol 3350 17 17 g PO DAILY 10/06/23 10/06/23 History gram/dose oral powder (Miralax) solifenacin 5 mg tablet 5 mg PO QAM 10/06/23 10/06/23 History tramadol 50 mg tablet 50 mg PO Q6H PRN Pain 10/06/23 10/06/23 History Patient History Medical History Kidney stones Hyperlipidemia Hypertension History of COVID-09 Apr 2022 > mild COPD (chronic obstructive pulmonary disease) rare res inh use Carotid stenosis S/p CEA 2006 S/p right common carotid artery stent placement 2019 due to recurrent MARVIN stenosis Impaired fasting glucose Hgb A1C 6.0 in 08/2021 Peptic ulcer Facet syndrome, lumbar GERD (gastroesophageal reflux disease) TIA (transient ischemic attack) (01/18/14) Age 47 > then carotid stent placed [place] 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 Kidney disease no specialist Surgical History History of common carotid artery stent placement April 2019 due to recurrent MARVIN stenosis History of colonoscopy [place] teeth extracted H/O carotid endarterectomy (11/08/06) History of shoulder surgery right Family History Father Stroke syndrome Laryngeal cancer Peptic ulcer Mother Myocardial infarction Sister Myocardial infarction Cerebral arterial aneurysm Brother Hypertension Unknown Cardiovascular disorder Cerebral arterial aneurysm Grandfather Skin cancer Social History Smoking Status: Former smoker Tobacco Type: Cigarettes Age Started Using Tobacco: 15; packs per day: 1; Cigarettes Per Day: 20; Second Hand Exposure: Yes; Do You Dip or Chew Tobacco: No; Hx Alcohol Use: No Hx Substance Use: Yes Substance Use Type Other:: occasional > advised Preferred Language: Telugu Communication Ability: Effective Apple Press Operator Required: No Beliefs That Will Affect Care: None marital status: Current Living Situation: Spouse current occupational status: disabled Feels Safe at Home: Yes Assistive Devices: None Review of Systems Review of Systems: Not obtained in the setting of emergent situation Physical Exam Physical Exam: General: Uncomfortable, writhing in pain HEENT: Sclerae anicteric Lungs: Clear anteriorly Cardiac: Regular rate and rhythm, no murmurs. Vascular: 2+ radial, Abdomen: Soft, nontender Extremities: Well perfused, no peripheral edema Psych: Alert orient x3 Results & Data Vital Signs (Past 12 Hours) Vital Signs Temp Pulse Resp BP Pulse Ox O2 Del Method 10/05/23 23:56 98.4 F 57 L 18 122/90 97 Room Air PG Care Time/CCT Total # of Minutes Spent Total Time Spent with Patient: Total time spent is greater than 50% in coordination of care (as documented) at patient's floor/unit and/or counseling patient: Coding Level of Care Code 14009 INT INP/OBS CARE 3/75MIN Diagnoses Acute ST elevation myocardial infarction (STEMI) I21.3 Involved coronary artery: unspecified coronary artery (1) Acute ST elevation myocardial infarction (STEMI) Involved coronary artery: unspecified coronary artery Qualified Code(s): I21.3 - ST elevation (STEMI) myocardial infarction of unspecified site
--- NOTE | 2023-10-06 00:59 | Pre Anesthesia Assessment ---
Date of Service October 06, 2023 Pre Sedation Assessment Vital Signs Temp Pulse Resp BP Pulse Ox O2 Del Method 10/05/23 23:56 98.4 F 57 L 18 122/90 97 Room Air Cardiovascular + regular rate Respiratory + respiratory effort normal Pre-Sedation Airway Assessment Smoking Status: Former smoker Hx Sleep Apnea: No Hx Difficult Intubation: No Short, Thick Neck: No Thyromental Distance: < 3.5 Finger Breadths Oral Cavity: + WNL Mallampati Class: III ASA: ASA4 Procedure Planning Contraindications for Sedation: none Current Medications Reviewed: Yes Notes The planned sedation has been discussed with the patient. Informed Consent was obtained. I have identified the patient, determined the appropriateness of sedation and have assessed the patient immediately prior to the procedure. All medicine(s) and interventions are by my order.
--- NOTE | 2023-10-06 00:59 | Post Anesthesia Assessment ---
Date of Service October 06, 2023 Post Sedation Assessment Vital Signs Temp Pulse Resp BP Pulse Ox O2 Del Method 10/05/23 23:56 98.4 F 57 L 18 122/90 97 Room Air Recovery Score Activity: Moves 4 extremities Respiration: Deep Breath/Cough Circulation: +/-20% PreAnes Value Consciousness: Fully Awake Oxygen Saturation: O2 needed for >90% Discharge Sedation Level of Care: Fast Track Phase II Post Sedation Plan On clinical assessment, the patient appears to have tolerated the sedation without complications. Patient is recovering as anticipated. Patient will continue to be monitored by nursing and may be discharged when sedation discharge criteria are met per below protocol. Upon Completions of procedure up to 15 minutes continue every 5 minute vital signs and the P.A.R. score; then discharge to a Phase I or Fast Track to Phase II per the following guidelines: * Discharge Patient to appropriate Phase II area if PAR is 8 or greater or return to pre- procedure baseline. The post - procedure orders will be as directed. * If PAR score is less than 8 or not return to pre-procedure baseline then patient will follow Phase I monitoring till PAR is reached for Phase II. The Phase I may be done in procedure room or may call to secure a Phase I area. * If naloxone or flumazenil are used for reversal, hold in Phase I for continued monitoring from when last reversal dose was given for a minimum of 60 minutes or longer pending the nurse and/or physician discretion of patient condition before discharge to Phase II. Please call the Sedation Physician to re-evaluate and complete post-note for discharge to Phase II area. Do NOT discharge from procedure sedation or Phase 1 until post- sedation evaluation note is complete by procedure /sedation MD Sedation Discharge Instructions to be given to the patient at discharge to home.
--- NOTE | 2023-10-06 01:08 | Critical Care Consultation ---
Date of Consultation October 06, 2023 Assessment & Plan (1) Acute ST elevation myocardial infarction (STEMI): (2) History of stroke: (3) Impaired fasting glucose: (4) Hypercholesteremia: (5) Ureteral cancer: (6) COPD (chronic obstructive pulmonary disease): (7) Coronary artery disease: Plan Reason Critically Ill: 63 YOM presents to [facility] with STEMI taking urgently to labor contract analyst, received 2 GLORY to LAD and with residual 70% circ disease to be addressed at later date. To the ICU post cath, currently chest pain free and without need for vasoactive medications. Neuro - Hx of CVA, right CEA with stenting (2006) CAM ICU: Negative - No acute needs at this time Cardiac - STEMI with stents to [place] artery, CAD, HTN, HLD - S/P STEMI with GLORY to LAD - Residual CAD circ 70%, RCA small 70% mid segment disease- per cardiology address at later time - Elevated LVEDP - 40mg Lasix given in labor contract analyst- follow - Continue DAPT therapy per cardiology- asa/ticagrelor - BB/ARB as hemodynamics permit- ECHO in AM - Atorvastatin 80mg - already initiated, Continue previous Zetia Respiratory - COPD emphysema, previous smoker --COPD with emphysema Gold class B On Spiriva along with as needed albuterol Was recently started on Advair couple of days ago because he was complaining of chest pain by primary care. 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 Please refer to my attending physician's documentation for any further recommendations. Supervising Physician Co-Signing Physician Notes I saw and evaluated the patient with JACOB Winchester, and agree with findings and plan as documented in the note. 63-year-old male known patient of months in the clinic admitted to hospital with complaints of chest pain, was taken to [facility] and drug-eluting stent was placed At the time of examination patient says that he still having retrosternal chest pain nonradiating. 6 out of 10 in intensity. Denies any nausea or vomiting. Shortness of breath is improved compared to before. He was on 3 L nasal cannula saturating 95 to 96%, I went down to 1 L. Did have breakfast in the morning without any issues Constitutional: No acute distress HEENT: EOMI, PERRLA Respiratory system: Decreased air entry bilaterally, no wheeze, rhonchi, mild crackles bilateral lower lobes CVS: S1-S2 positive, no murmurs or gallops Abdomen: Soft, nontender, nondistended, positive bowel sounds x4 Extremities: +2 pulses bilaterally radialis/ dorsalis pedis, no cyanosis, no edema Neuro: Awake alert oriented x3 Psych: Normal mood and affect G/U: No Obrien --Prophylaxis VTE: IPC GI: Pantoprazole Lines: Peripheral Diet: Cardiac Plan: In/out: -650, urine outputs ago and 50 mL Potassium and magnesium being replaced. There is decrease in the intensity of the stimulation on the latest EKG. Will repeat an EKG Patient still complaining of mild chest pain. Consideration of Nitropatch versus nitroglycerin drip will be thought of. Follow-up 2D echo Continue to trend troponin Continue with DAPT, beta-sonia, statin I have personally spent 45 minutes of critical care time in the direct management of this patient. This is a life/limb threatening event. This includes time spent evaluating patient, direct bedside care, chart review, placing orders, interpretation of diagnostic studies, discussion with consultants, patient, and family members, as well as other required patient management activities. This time is exclusive of all separately billable procedures, and teaching time and separate from and in addition to any other critical care service time. Please note the above document was generated using voice recognition software. It may contain grammatical, syntax or spelling errors. History of Present Illness Reason for Consultation: STEMI with GLORY x2 to LAD Requesting Physician: Juan Solorzano MD Attending Physician: Juan Solorzano MD History of Present Illness 63 YOM with medical history of: HTN, CVA, right CEA with stenting, CAD, Arthritis, ILD, Bladder Cancer, Polio, CKD, GERD, Previous smoker. Patient presents to the EMD today for complaint of chest pain. The pain started at around 2130 on 10/05/23 that woke him up from sleep. It was located in the center of his chest as a burning sensation that spread across his chest and into the back of his neck. It was immediately associated with flushing, sweating, difficulty breathing, nausea and vomiting. He was transported by EMS and arrived as a STEMI alert. He received nitroglycerine en route and fentanyl. ECG on arrival was noted with ST elevations in anterior leads with reciprocal changes. He was taken urgently to the labor contract analyst for intervention. Was loaded with ticagrelor in labor contract analyst. He received 2 GLORY to the LAD and is noted with 70% circ as residual to be fixed at a later date. He was noted with elevated LVEDP/PCWP and was given 40mg IV Lasix in labor contract analyst. He arrives to the ICU hemodynamically stable at this time, awake, alert, and chest pain free. He carries strong family history of CAD/MIs/CVAs. CODE: FULL Allergies Allergy/AdvReac Type Severity Reaction Status Date / Time rosuvastatin [From Crestor] AdvReac Intermediate Headache Verified 10/05/23 23:58 varenicline [From Chantix] AdvReac Intermediate nightmares Verified 10/05/23 23:58 bee venom Allergy Severe Swelling Uncoded 10/05/23 23:58 of Lip/Tongue/Throat Home Medications Medication Instructions Recorded Confirmed Type aspirin 81 mg tablet,delayed 81 mg PO HS 04/09/18 10/06/23 History release metoprolol tartrate 50 mg tablet 50 mg PO BID #60 tabs 07/24/22 10/06/23 Rx (Lopressor) acetaminophen 650 mg 1,300 mg PO Q12H PRN Pain 08/03/22 10/06/23 History tablet,extended release (Tylenol Arthritis Pain) atorvastatin 80 mg tablet 80 mg PO QPM 08/03/22 10/06/23 History ezetimibe 10 mg tablet (Zetia) 10 mg PO QAM #90 tabs 09/24/22 10/06/23 Rx albuterol sulfate 90 mcg/actuation 2 puff inhalation Q6H PRN 10/26/22 10/06/23 Rx aerosol inhaler Shortness Of Breath Or Wheezing #18 grams tiotropium bromide 2.5 2 puff inhalation QAM #4 grams 10/26/22 10/06/23 Rx mcg/actuation mist for inhalation (Spiriva Respimat) albuterol sulfate 2.5 mg/3 mL 2.5 mg inhalation DIRECTED PRN 10/06/23 10/06/23 History (0.083 %) solution for nebulization Shortness Of Breath Or Wheezing amlodipine 5 mg tablet 5 mg PO QAM 10/06/23 10/06/23 History diclofenac sodium 1 % topical gel 2 g topical QID PRN Pain 10/06/23 10/06/23 History (Voltaren Arthritis Pain) epinephrine 0.3 mg/0.3 mL 0.3 mg IM DIRECTED PRN 10/06/23 10/06/23 History injection, auto-injector (EpiPen) anaphylaxis fluticasone 250 mcg-salmeterol 50 1 inh inhalation BID 10/06/23 10/06/23 History mcg/dose blistr powdr for inhalation (Advair Diskus) losartan 100 mg tablet 100 mg PO QAM 10/06/23 10/06/23 History omeprazole 20 mg capsule,delayed 20 mg PO QAM 10/06/23 10/06/23 History release paroxetine HCl 10 mg tablet 10 mg PO QAM 10/06/23 10/06/23 History polyethylene glycol 3350 17 17 g PO DAILY 10/06/23 10/06/23 History gram/dose oral powder (Miralax) solifenacin 5 mg tablet 5 mg PO QAM 10/06/23 10/06/23 History tramadol 50 mg tablet 50 mg PO Q6H PRN Pain 10/06/23 10/06/23 History Patient History Medical History Kidney stones Hyperlipidemia Hypertension History of COVID-19 Mar 2022 > mild COPD (chronic obstructive pulmonary disease) rare res inh use Carotid stenosis S/p CEA 2006 S/p right common carotid artery stent placement 2018 due to recurrent MARVIN stenosis Impaired fasting glucose Hgb A1C 6.0 in 08/2021 Peptic ulcer Facet syndrome, lumbar GERD (gastroesophageal reflux disease) TIA (transient ischemic attack) (01/18/14) Age 47 > then carotid stent placed Polio 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 Kidney disease no specialist Surgical History History of common carotid artery stent placement April 2019 due to recurrent MARVIN stenosis History of colonoscopy [place] teeth extracted H/O carotid endarterectomy (11/08/06) History of shoulder surgery right Family History Father Stroke syndrome Laryngeal cancer Peptic ulcer Mother Myocardial infarction Sister Myocardial infarction Cerebral arterial aneurysm Brother Hypertension Unknown Cardiovascular disorder Cerebral arterial aneurysm Grandfather Skin cancer Social History Smoking Status: Never smoker Tobacco Type: Cigarettes Age Started Using Tobacco: 15; packs per day: 1; Cigarettes Per Day: 20; Second Hand Exposure: Yes; Do You Dip or Chew Tobacco: No; Hx Alcohol Use: No Hx Substance Use: Yes Substance Use Type Other:: occasional > advised Preferred Language: Togolese Communication Ability: Effective Auto Research Engineer Required: No Beliefs That Will Affect Care: None marital status: Current Living Situation: Spouse current occupational status: disabled Feels Safe at Home: Yes Safety Concerns: Feels Safe At This Time Assistive Devices: None Review of Systems 2 Review of Systems: REVIEW OF SYSTEMS: Constitutional: No fever, sweats or chills Eyes: No diplopia, no worsening or blurred vision ENT: normal hearing, no trouble swallowing Respiratory: No cough, sputum, dyspnea at rest or on exertion Cardiovascular: Currently No chest pain, tightness or palpitations Abdomen: No pain, nausea, vomiting, diarrhea or constipation Musculoskeletal: (+) chronic neck and shoulder pain, Neurologic: (+) CVA hx no residual, No weakness, numbness/tingling, or balance problems Psychiatric: No anxiety or depression Skin: No rash or itch Physical Exam 2 Physical Exam: PHYSICAL EXAM: General: awake, alert, no apparent distress Head: Normocephalic, atraumatic ENT: PERRL, EOMI, no pharyngeal exudate, mucous membranes moist Neuro: AAO x 3, speech clear and appropriate, strength intact bilaterally 5/5, sensation intact and equal all extremities and dermatomes, no pronator drift Chest: equal rise and fall of the chest, no accessory muscle use, no heaves or thrills, Clear to auscultation, on room air, Cardiac: Regular rate and rhythm, telemetry reviewed- SB no ectopy, skin warm dry, cap refill <3 seconds, peripheral pulses +2 no JVD, no murmur, no edema, TR band to right wrist normal sensation and movement to right hand GI: NABS x 4 quadrants, soft, nontender to palpation, no rebound, guarding or tenderness : Spontaneously voiding, no pain, no CVA tenderness, Extremities: Normal inspection, no peripheral edema or erythema, calfs nontender to palpation Psych: Normal mood and affect Skin: no rash or erythema Results & Data Results & Data Vital Signs (Past 12 Hours) Vital Signs Temp Pulse Resp BP Pulse Ox O2 Del Method 10/05/23 23:56 36.9 C 57 L 18 122/90 97 Room Air Laboratory Results Abnormal lab results 10/05/23 10/06/23 10/06/23 Range/Units 23:58 00:07 00:29 WBC 10.92 H (4.8-10.8) K/ul RBC 4.25 L (4.70-6.10) M/uL Hgb 13.8 L (14.0-18.0) g/dl POC Hgb 13.3 L (14.0-18.0) g/dl Hct 39.0 L (42.0-52.0) % POC Hct 39 L (42-52) % Lymph # (Auto) 3.84 H (1.20-3.40) K/uL [place] # (Auto) 1.17 H (0.11-0.59) K/uL Activ Coag Time Kaolin 369 H (94-140) SECONDS Potassium 3.4 L (3.5-5.1) mmol/L Chloride 111 H (98-107) mmol/L POC Total CO2 20 L (24-31) mmol/L Glucose 113 H (70-99(Fasting)) mg/dl POC Glucose (other) 113 H (70-99) mg/dl Calcium 8.3 L (8.6-10.3) mg/dl POC Ioniz Calcium Sary 1.11 L (1.12-1.32) mmol/l Troponin I High Sens 106.6 H* (0-20) pg/ml TSH 5.153 H (0.300-4.500) uIu/ml Diagnostic Findings 10/06/23 01:59 10/06/23 01:59 ECG Additional Comments: Sinus bradycardia Anteroseptal infarct , possibly acute ACUTE [place] / STEMI Abnormal ECG When compared with ECG of 01-AUG-2022 11:16, Anteroseptal infarct is now Present ST now depressed in Inferior leads ST elevation now present in Anterior leads Coding Level of Care Code 70552 CRITICAL CARE 1ST 30-74M Diagnoses Acute ST elevation myocardial infarction (STEMI) I21.3 Involved coronary artery: unspecified coronary artery History of stroke Z86.73 Impaired fasting glucose R73.01 Hypercholesteremia E78.00 Ureteral cancer C66.9 COPD (chronic obstructive pulmonary disease) J44.9 Coronary artery disease I25.10 (1) Acute ST elevation myocardial infarction (STEMI) Involved coronary artery: unspecified coronary artery Qualified Code(s): I 21.3 - ST elevation (STEMI) myocardial infarction of unspecified site
[2023-10-06 01:23] LABS: T4 Free Thyroxine 0.94 ng/dl (0.61-1.60)
--- NOTE | 2023-10-06 01:26 | Cardiac Catheterization ---
[facility] Data: Hand Inserter Operator Cardiac Status Clinical evaluation leading to the procedure CAD Presenation: STEMI Anginal Classification: CCS IV Diagnostic Physicians Name: Swapnil Khan MD Closure Device Recommendations: PCI without planned CABG Cardiac Cath Procedure Full Procedure Date October 06, 2023 Pre-Procedure Diagnosis Pre-Procedure Diagnosis: STEMI AUC Score AUC Score: 9 Post-Procedure Diagnosis Post-Procedure Diagnosis: Severe CAD, Successful PCI and Elevated Intracardiac Pressures Procedure(s) Performed Procedure(s) Performed: Coronary Angiography, Left Heart Cath and Drug Eluting Stent Automobile Washer Steam Swapnil Khan MD Dietary Aid(s) Realty Specialist Estimated Blood Loss Estimated Blood Loss: 15 Medication(s) Medication(s): Fentanyl, Heparin, Lidocaine 1%, Nicardipine, Nitroglycerin and Versed Medication(s): Ticagrelor Summary of Findings Indication: STEMI/Heart Alert Access: 6 Fr right radial artery Catheters: EBU 3.5 guide, diagnostic JR4 Findings: LM -normal caliber, no significant disease LAD -100% acute proximal occlusion Circumflex -dominant, medium caliber, earlymid luminal irregularities 70% latemid stenosis. Distal vessel without significant disease. Small L PDA with out disease. Medium bifurcating OM1 with luminal irregularities. RCA -small, nondominant, 70% diffuse mid segment disease LVEDP -29 -- PCI -- Antithrombotic therapy: Heparin, ticagrelor Procedure: Left main cannulated with EBU 3.5 guide [employer] Display Builder 50 wire passed across lesion into distal vessel Proximal LAD lesion predilated with 2.5 compliant balloon Dilated lesion stented with 3.0 x 26 mm Jeff drug-eluting stent Stent post-dilated with 3.5 noncompliant balloon IC vasodilators administered for spasm Questionable haziness at distal aspect of stent. Second GLORY (2.75 x 12 mm Ashley) overlapped with distal aspect of stent in mid segment of LAD. Overlap postdilated with stent balloon. Post procedure DOMINIC 3 flow, stents well expanded with minimal residual stenosis and no apparent cardiac complications. Arterial Closure: TR band Summary: 1. Anterior STEMI/100% acute proximal LAD occlusion 2. Severe non-culprit coronary artery disease -70% latemid dominant circumflex Small nondominant RCA with 70% diffuse mid disease 3. Elevated intracardiac filling pressure 4. Successful PCI of proximal to mid LAD with 2 overlapping drug-eluting stents (3.0 x 26, 2.75 x 12 mm Ashley; postdilated with 3.5 NC). Recommendations: Admit to ICU for continued monitoring Loaded with ticagrelor 180 mg in Hand Inserter Operator Given 40 of IV Lasix x 1 Continue dual-antiplatelet therapy for at least 1 year. Trend troponins until peak, Check Echo Uptitrate beta-sonia/ARB as BP allows High-dose statin, Zetia Consult cardiac Rehab Plan on likely staged PCI of mid circumflex at some point this hospitalization Hemodynamics Rest Ao:: 130/81/130 Final Ao: 107/64/78 LV: 100/29 Recommendations Recommendations: PCI without planned CABG Radiation Exposure (mGy) 1454 Contrast (mls) 110 Anesthesia Moderate 2453-7063 Procedural Complication(s) None Disposition ICU I attest to the content of the Intraoperative Record and any orders documented therein. Any exceptions are noted below. [facility] Card Cath Procedure Codes Cardiac Catheterization Procedure 1: Cardiovascular Cath Procedures: 01007 Coronaries and LHC (+/-LV) Moderate Sedation Procedure 1: Sedation/Anesthesia: 92225 Mod Sedation by the same physician;Init15 Min Child Age 5 & Up Procedure 2: Sedation/Anesthesia: 52608 Mod Sedation by the same physician; Ea [id number] Minutes Stenting Procedure 1: Cardiovascular Stent Procedures: 22198 Perc transluminal revascularization of acute sub/total occl, aMI PG Care Time/CCT Total # of Minutes Spent Total Time Spent with Patient: Total time spent is greater than 50% in coordination of care (as documented) at patient's floor/unit and/or counseling patient:
[2023-10-06] MEDS ORDERED: ALBUTEROL HFA 8 GM INHALER INH PRN (01:37)
--- NOTE | 2023-10-06 02:10 | History & Physical Report ---
Date of Service October 06, 2023 Assessment & Plan (1) Acute ST elevation myocardial infarction (STEMI): Plan: 63-year-old male with past medical history significant for hyperlipidemia, COPD, TIA, hypertension, bilateral carotid stenosis, chronic idiopathic constipation, GERD, history of left ureteral cancer, osteoarthritis, history of poliomyelitis, history of tobacco use disorder presents with chest pain and found to ST elevated ID s/p cardiac catheter and 2 drug-eluting stents to proximal LAD. Patient states around 10 PM he was sleeping when he woke up with with very severe chest pain in the center of the chest and radiating to both his arms, he was diaphoretic, nauseous and dizzy and also feeling very short of breath. EMS gave nitro which dropped his blood pressure but improved with fluids and also given fentanyl which improved his chest pain. Heart alert was called and patient is currently status postcardiac cath. Patient states that 2 to 3 days ago he had some mild chest discomfort but attributed to his lungs. Currently pain is resolved. Resting comfortably. Denies any headache. No runny nose or sore throat. No fevers. No nausea. No abdominal pain. Normal bowel and bladder movements. Uses stool softeners. Before this episode he was ambulating without any discomfort. Acute ST elevated ID S/p cardiac cath and found 100% proximal LAD occlusion s/p 2 drug-eluting stents Also found to have about 70% late mid stenosis of the circumflex. RCA small nondominant 70% diffuse mid segment disease. Currently loaded with Brilinta Placed on aspirin 81 mg p.o. daily Brilinta 90 mg. Lopressor 25 p.o. twice daily losartan 25 mg twice daily, Lipitor 80 mg p.o. daily and Zetia 10 mg daily Plan for repeat cath for circumflex lesion Follow serial cardiac enzymes and echo Close monitoring ICU Cardiology consult Hypertension On metoprolol, losartan Will monitor History of COPD Continue home inhalers Will monitor History of TIA History of carotid artery stenosis s/p carotid endarterectomy On aspirin Plavix and statin History of low-grade left ureteral cancer S/p cystoscopic resection in July 2022 and October 2022 Multiple bladder lesions which are low-grade papillary urothelial carcinoma S/p BCG treatments Follow-up with urology and heme-onc Constipation On MiraLAX daily GERD PPI DVT prophylaxis SCDs for now Disposition ICU Full code Admission and Anticipated Discharge Date Admission Date: October 06, 2023 History of Present Illness Chief Complaint: ST elevated ID Primary Care Provider: NO PCP 63-year-old male with past medical history significant for hyperlipidemia, COPD, TIA, hypertension, bilateral carotid stenosis, chronic idiopathic constipation, GERD, history of left ureteral cancer, osteoarthritis, history of poliomyelitis, history of tobacco use disorder presents with chest pain and found to be ST elevated ID s/p cardiac catheter and 2 drug-eluting stents to proximal LAD. Patient states around 10 PM he was sleeping when he woke up with very severe chest pain in the center of the chest and radiating to both his arms, he was diaphoretic, nauseous and dizzy and also feeling very short of breath. EMS gave nitro which dropped his blood pressure but improved with fluids and also given fentanyl which improved his chest pain. Heart alert was called and patient is currently status postcardiac cath. Patient states that 2 to 3 days ago he had some mild chest discomfort but attributed to his lungs. Currently pain is resolved. Resting comfortably. Denies any headache. No runny nose or sore throat. No fevers. No nausea. No abdominal pain. Normal bowel and bladder movements. Uses stool softeners. Before this episode he was ambulating without any discomfort. Past medical history. As mentioned above Past surgical history. Carotid endarterectomy, colonoscopy, cystoscopy with insertion of stent on the left side. Cystourethroscopy with fulguration of the bladder tumor. Cystourethroscopy with biopsy. History uteroscope with pyeloscopy. Dental surgery. EGD. Right ankle fusion. Right glenohumeral joint hemiarthroplasty. Right carotid stent. Social history. . Quit smoking in 2022. Smoked 1 pack a day for 40 years. No alcohol currently. Smokes marijuana as per [facility]. Family history. Father had coronary disease. Throat cancer. Peptic ulcer disease. Mother had dementia. CAD. CABG. Brother had coronary disease. Brother had stroke. Sister had coronary disease. Maternal grandmother had brain cancer. Maternal grandfather had black lung. Paternal grandmother had cancer. Diabetes. Paternal grandfather had lung cancer. Allergies Allergy/AdvReac Type Severity Reaction Status Date / Time rosuvastatin [From Crestor] AdvReac Intermediate Headache Verified 10/05/23 23:58 varenicline [From Chantix] AdvReac Intermediate nightmares Verified 10/05/23 23:58 bee venom Allergy Severe Swelling Uncoded 03/16/24 23:58 of Lip/Tongue/Throat Home Medications Medication Instructions Recorded Confirmed Type aspirin 81 mg tablet,delayed 81 mg PO HS 04/09/18 10/06/23 History release metoprolol tartrate 50 mg tablet 50 mg PO BID #60 tabs 07/24/22 10/06/23 Rx (Lopressor) acetaminophen 650 mg 1,300 mg PO Q12H PRN Pain 08/03/22 10/06/23 History tablet,extended release (Tylenol Arthritis Pain) atorvastatin 80 mg tablet 80 mg PO QPM 08/03/22 10/06/23 History ezetimibe 10 mg tablet (Zetia) 10 mg PO QAM #90 tabs 09/24/22 10/06/23 Rx albuterol sulfate 90 mcg/actuation 2 puff inhalation Q6H PRN 10/26/22 10/06/23 Rx aerosol inhaler Shortness Of Breath Or Wheezing #18 grams tiotropium bromide 2.5 2 puff inhalation QAM #4 grams 10/26/22 10/06/23 Rx mcg/actuation mist for inhalation (Spiriva Respimat) albuterol sulfate 2.5 mg/3 mL 2.5 mg inhalation DIRECTED PRN 10/06/23 10/06/23 History (0.083 %) solution for nebulization Shortness Of Breath Or Wheezing amlodipine 5 mg tablet 5 mg PO QAM 10/06/23 10/06/23 History diclofenac sodium 1 % topical gel 2 g topical QID PRN Pain 10/06/23 10/06/23 History (Voltaren Arthritis Pain) epinephrine 0.3 mg/0.3 mL 0.3 mg IM DIRECTED PRN 10/06/23 10/06/23 History injection, auto-injector (EpiPen) anaphylaxis fluticasone 250 mcg-salmeterol 50 1 inh inhalation BID 10/06/23 10/06/23 History mcg/dose blistr powdr for inhalation (Advair Diskus) losartan 100 mg tablet 100 mg PO QAM 10/06/23 10/06/23 History omeprazole 20 mg capsule,delayed 20 mg PO QAM 10/06/23 10/06/23 History release paroxetine HCl 10 mg tablet 10 mg PO QAM 10/06/23 10/06/23 History polyethylene glycol 3350 17 17 g PO DAILY 10/06/23 10/06/23 History gram/dose oral powder (Miralax) solifenacin 5 mg tablet 5 mg PO QAM 10/06/23 10/06/23 History tramadol 50 mg tablet 50 mg PO Q6H PRN Pain 10/06/23 10/06/23 History Past Med/Surg History Medical History Kidney stones Hyperlipidemia Hypertension History of COVID-19 Mar 2022 > mild COPD (chronic obstructive pulmonary disease) rare res inh use Carotid stenosis S/p CEA 2006 S/p right common carotid artery stent placement 2018 due to recurrent MARVIN stenosis Impaired fasting glucose Hgb A1C 6.0 in 08/2021 Peptic ulcer Facet syndrome, lumbar GERD (gastroesophageal reflux disease) TIA (transient ischemic attack) (01/18/14) Age 47 > then carotid stent placed Polio 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 Kidney disease no specialist Surgical History History of common carotid artery stent placement April 2019 due to recurrent MARVIN stenosis History of colonoscopy [place] teeth extracted H/O carotid endarterectomy (11/08/06) History of shoulder surgery right Family History Father Stroke syndrome Laryngeal cancer Peptic ulcer Mother Myocardial infarction Sister Myocardial infarction Cerebral arterial aneurysm Brother Hypertension Unknown Cardiovascular disorder Cerebral arterial aneurysm Grandfather Skin cancer Social History Smoking Status: Never smoker Tobacco Type: Cigarettes Age Started Using Tobacco: 15; packs per day: 1; Cigarettes Per Day: 20; Second Hand Exposure: Yes; Do You Dip or Chew Tobacco: No; Hx Alcohol Use: No Hx Substance Use: Yes Substance Use Type Other:: occasional > advised Preferred Language: Cypriot Communication Ability: Effective Stripper Color Required: No Beliefs That Will Affect Care: None marital status: Current Living Situation: Spouse current occupational status: disabled Feels Safe at Home: Yes Safety Concerns: Feels Safe At This Time Assistive Devices: None Review of Systems Review of Systems: All systems reviewed & are unremarkable except as noted in HPI & below Physical Exam Physical Exam: General-Not in distress Head- atraumatic Eyes- EOMI, Neck- supple, no JVD, no carotid bruit Lungs- clear to auscultation no wheezing or crackles Heart- regular rate and rhythm; no murmur, no gallop. Abdomen- normal bowel sounds, soft, nontender, no distension. Extremities- no pretibial edema, no erythema seen. Left leg is somewhat thinner from polio.Right wrist cath site no drainage seen. Neuro- alert, oriented ; EOMI; no facial palsy; no dysarthria; moves extremities. Skin- warm & dry Results & Data Results & Data Vital Signs (Past 12 Hours) Vital Signs Temp Pulse Pulse Resp BP BP Pulse Ox 10/06/23 01:52 10/06/23 01:51 10/06/23 01:45 57 L 14 94 10/06/23 01:45 95/70 L 10/06/23 01:39 36.5 C 58 L 18 118/90 91 10/06/23 01:32 105/72 10/06/23 01:32 64 18 92 10/06/23 01:30 64 17 92 10/06/23 01:26 58 L 10 L 93 10/05/23 23:56 36.9 C 57 L 18 122/90 97 O2 Del Method O2 Del Method 10/06/23 01:52 Room Air 10/06/23 01:51 Room Air 10/06/23 01:45 10/06/23 01:45 10/06/23 01:39 Room Air 10/06/23 01:32 10/06/23 01:32 10/06/23 01:30 10/06/23 01:26 10/05/23 23:56 Room Air Diagnostic Findings Laboratory Results WBC 10.92 K/ul (4.8-10.8) H 10/05/23 23:58 RBC 4.25 M/uL (4.70-6.10) L 10/05/23 23:58 Hgb 13.8 g/dl (14.0-18.0) L 10/05/23 23:58 POC Hgb 13.3 g/dl (14.0-18.0) L 10/06/23 00:07 Hct 39.0 % (42.0-52.0) L 10/05/23 23:58 POC Hct 39 % (42-52) L 10/06/23 00:07 MCV 91.8 fL (80.0-100.0) 10/05/23 23:58 MCH 32.5 pg (25.0-34.0) 10/05/23 23:58 MCHC 35.4 g/dL (32.0-36.0) 10/05/23 23:58 RDW Std Deviation 46.2 fL (36.4-46.3) 10/05/23 23:58 RDW Coeff of Karen 13.6 % (11.5-14.5) 10/05/23 23:58 Plt Count 187 K/uL (130-400) 10/05/23 23:58 MPV 10.7 fL (9.4-12.4) 10/05/23 23:58 Immature Gran % (Auto) 0.5 % 10/05/23 23:58 Neut % (Auto) 50.5 % 10/05/23 23:58 Lymph % (Auto) 35.2 % 10/05/23 23:58 Atlantic % (Auto) 10.7 % 10/05/23 23:58 Eos % (Auto) 2.4 % 10/05/23 23:58 Baso % (Auto) 0.7 % 10/05/23 23:58 Neut # (Auto) 5.52 K/uL (1.40-6.50) 10/05/23 23:58 Lymph # (Auto) 3.84 K/uL (1.20-3.40) H 10/05/23 23:58 Atlantic # (Auto) 1.17 K/uL (0.11-0.59) H 10/05/23 23:58 Eos # (Auto) 0.26 K/uL (0.00-0.50) 10/05/23 23:58 Baso # (Auto) 0.08 K/uL (0.00-0.20) 10/05/23 23:58 Immature Gran # (Auto) 0.05 K/uL (0.01-0.20) 10/05/23 23:58 PT 11.5 Seconds (9.0-12.0) 10/05/23 23:58 INR 1.1 (0.9-1.1) 10/05/23 23:58 APTT 27 Seconds (21-31) 10/05/23 23:58 PTT Ratio 1.0 10/05/23 23:58 Activ Coag Time Kaolin 369 SECONDS (94-140) H 10/06/23 00:29 POC Sodium 144 mmol/L (135-144) 10/06/23 00:07 Sodium 139 mmol/L (136-145) 10/05/23 23:58 POC Potassium 3.3 mmol/L (3.3-5.0) 10/06/23 00:07 Potassium 3.4 mmol/L (3.5-5.1) L 10/05/23 23:58 POC Chloride 107 mmol/L (101-112) 10/06/23 00:07 Chloride 111 mmol/L (98-107) H 10/05/23 23:58 Carbon Dioxide 22 mmol/L (21-32) 10/05/23 23:58 POC Total CO2 20 mmol/L (24-31) L 10/06/23 00:07 Anion Gap 6 (3-11) 10/05/23 23:58 POC Anion Gap 22.0 mmol/L (16-25) 10/06/23 00:07 POC BUN 10 mg/dl (7-18) 10/06/23 00:07 BUN 11 mg/dl (6-23) 10/05/23 23:58 Creatinine 0.88 mg/dl (0.6-1.4) 10/05/23 23:58 POC Creatinine 0.9 mg/dl (0.6-1.3) 10/06/23 00:07 Est Cr Clr Drug Dosing 92.8 ml/min 10/05/23 23:58 Est GFR ( Amer) 104.5 ml/min 10/05/23 23:58 Est GFR (Non-Af Amer) 90.1 ml/min 10/05/23 23:58 BUN/Creatinine Ratio 12.5 (10-20) 10/05/23 23:58 Glucose 113 mg/dl (70-99(Fasting)) H 10/05/23 23:58 POC Glucose 119 mg/dl (70-99) H 10/06/23 02:02 POC Glucose (other) 113 mg/dl (70-99) H 10/06/23 00:07 Calcium 8.3 mg/dl (8.6-10.3) L 10/05/23 23:58 POC Ioniz Calcium Sary 1.11 mmol/l (1.12-1.32) L 10/06/23 00:07 Magnesium 1.8 mg/dl (1.7-2.4) 10/05/23 23:58 Total Bilirubin 0.5 mg/dl (0.2-1.0) 10/05/23 23:58 AST 16 U/L (13-39) 10/05/23 23:58 ALT 12 U/L (7-52) 10/05/23 23:58 Alkaline Phosphatase 90 U/L (34-104) 10/05/23 23:58 Total Creatine Kinase 62 U/L (30-223) 10/05/23 23:58 Troponin I High Sens 106.6 pg/ml (0-20) H* 10/05/23 23:58 B-Natriuretic Peptide 56 pg/ml (0-100) 10/05/23 23:58 Total Protein 6.3 gm/dl (6.0-8.3) 10/05/23 23:58 Albumin 3.8 gm/dl (3.4-5.0) 10/05/23 23:58 Globulin 2.5 gm/dl (2.5-4.0) 10/05/23 23:58 Albumin/Globulin Ratio 1.5 (0.9-2) 10/05/23 23:58 Lipase 22 U/L (11-82) 10/05/23 23:58 TSH 5.153 uIu/ml (0.300-4.500) H 10/05/23 23:58 Free T4 0.94 ng/dl (0.61-1.60) 10/05/23 23:58 ECG Additional Comments: ECG sinus bradycardia 59. ST elevation is seen anterior leads Code Status & VTE Plan VTE Prophylaxis Plan VTE Prophylaxis will be ordered: Yes (1) Acute ST elevation myocardial infarction (STEMI) Involved coronary artery: unspecified coronary artery Qualified Code(s): I21.3 - ST elevation (STEMI) myocardial infarction of unspecified site
[2023-10-06] MEDS: POTASSIUM CHLORIDE CRTAB 20 MEQ TABCR PO STA ×2 (02:18→05:54)
[2023-10-06 02:21] LABS: Basophils # (auto) 0.06 K/uL (0.00-0.20); Basophils % (auto) 0.4 %; Eosinophils # (auto) 0.15 K/uL (0.00-0.50); Hematocrit (blood only) 42.5 % (42.0-52.0); Hemoglobin 14.4 g/dl (14.0-18.0); Immature Granulocytes # (auto) 0.11 K/uL (0.01-0.20); Immature Granulocytes % (auto) 0.7 %; Lymphocytes # (auto) 1.89 K/uL (1.20-3.40); Lymphocytes % (auto) 12.7 %; Mean Corpuscular Hemoglobin 31.7 pg (25.0-34.0); Mean Corpuscular Hgb Conc 33.9 g/dL (32.0-36.0); Mean Corpuscular Volume 93.6 fL (80.0-100.0); Mean Platelet Volume 10.7 fL (9.4-12.4); Monocytes # (auto) 0.88 K/uL (0.11-0.59); Monocytes % (auto) 5.9 %; Neutrophils # (auto) 11.84 K/uL (1.40-6.50); Neutrophils % (auto) 79.3 %; Platelet Count 170 K/uL (130-400); RDW Coefficient of Variation 13.6 % (11.5-14.5); RDW Standard Deviation 46.5 fL (36.4-46.3); Red Blood Count 4.54 M/uL (4.70-6.10); White Blood Count 14.93 K/ul (4.8-10.8)
[2023-10-06 02:34] LABS: BUN Creatinine Ratio 14.5 (10-20); Calcium 8.5 mg/dl (8.6-10.3); Chol HDL Ratio 3.3 (0-5); Creatinine Clr Calc Pharmacy 98.4 ml/min; Est GFR (Non-African American) 92.3 ml/min; Magnesium 1.8 mg/dl (1.7-2.4); Potassium 3.5 mmol/L (3.5-5.1)
[2023-10-06] MEDS: MoRPHine SULFATE 2 MG/ML CARP IV STA (05:45)
[2023-10-06] MEDS: MAGNESIUM SULFATE / D5W 1 GM/100 ML BAG IV SCH (05:54)
[2023-10-06] MEDS ORDERED: ICU Protocol for HYPERglycemia SCH (07:30)
--- NOTE | 2023-10-06 07:36 | Electrocardiogram Report ---
Test Reason : Blood Pressure : / mmHG Vent. Rate : 059 BPM Atrial Rate : 059 BPM P-R Int : 172 ms QRS Dur : 094 ms QT Int : 420 ms P-R-T Axes : 081 052 022 degrees QTc Int : 415 ms Sinus bradycardia Anteroseptal infarct , possibly acute ACUTE CT / STEMI Abnormal ECG When compared with ECG of 01-AUG-2022 11:16, Anteroseptal infarct is now Present ST now depressed in Inferior leads ST elevation now present in Anterior leads Confirmed by Swapnil Adams ([id number]) on 10/06/2023 7:36:07 AM Referred By: REFERRED SELF Confirmed By:Crispin Adams
[2023-10-06] MEDS: EZETIMIBE 10 MG TAB PO SCH (07:55)
[2023-10-06] MEDS: ASPIRIN 81 MG ECTAB PO SCH (07:55)
[2023-10-06] MEDS: FLUTICASONE/VILANTEROL 200/25MCG 14 PUFFS/INHALER INH SCH (07:56)
[2023-10-06] MEDS: LOSARTAN POTASSIUM 25 MG TAB PO SCH (07:56)
[2023-10-06] MEDS: METOPROLOL TARTRATE 25 MG TAB PO SCH (07:56)
[2023-10-06] MEDS: OXYBUTYNIN CHLORIDE XL 5 MG TABCR PO SCH (07:57)
[2023-10-06] MEDS: PANTOprazole 40 MG TAB PO SCH (07:57)
[2023-10-06] MEDS: TICAGRELOR 90 MG TAB PO SCH (07:58)
[2023-10-06] MEDS: UMECLIDINIUM BROMIDE 62.5MCG/BLISTER 7 PUFFS/INHALER INH SCH (07:58)
[2023-10-06] MEDS: PARoxetine HCL 10 MG TAB PO SCH (07:58)
[2023-10-06] MEDS: ICU Protocol for HYPERglycemia SCH (08:00)
[2023-10-06] MEDS: POLYETHYLENE (MIRALAX) 17 GM PACK PO SCH (08:00)
--- NOTE | 2023-10-06 08:14 | XRay Report ---
XR chest 1V portable HISTORY: Chest pain, nonspecific COMPARISON: Chest 08/01/2022. FINDINGS: No pneumothorax. The cardiac silhouette is top normal in size. Emphysema again noted. Inter pipo progression of the interstitial/vascular thickening. This suggests mild pulmonary edema. Trace ri ght pleural effusion is noted. No focal lung consolidations identified. IMPRESSION: Interval progression of the interstitial/vascular thickening suggestive of mild pulmonary edema. ACT 112: Negative or not required by law. Electronically signed by: Jose C Vines M.D. 10/06/2023 8:13 AM
[2023-10-06] MEDS ORDERED: EZETIMIBE 10 MG TAB PO SCH (09:00)
[2023-10-06] MEDS ORDERED: NON-FORMULARY MEDICATION (Omeprazole 20 mg capsule,delayed release(DR/EC)) PO SCH (09:00)
[2023-10-06] MEDS ORDERED: NITROGLYCERIN 0.3 MG/1 TAB 100 TAB BTL SL PRN (10:02)
[2023-10-06] MEDS: NITROGLYCERIN SL 0.4 MG/TAB TAB ONE (10:10)
[2023-10-06] MEDS: ONDANSETRON INJ 2 MG/ML 2 ML VIAL IV PRN (10:24)
--- NOTE | 2023-10-06 10:47 | Communication Note ---
Date of Service: October 06, 2023 Patient evaluated in ICU. Reports ongoing chest pain and nausea/vomiting after LHC and stent placement. Not noting much relief with nitro at this time EXAM VS with SBP in 90s, HR in 80s, on room air CV RRR, no murmurs, no edema noted ECHO reviewed with 40-45% mildly reduced EF with apical akinesis, anterior/anterolateral and mid septal hypokinesis,PASP 50-55mmhg #Anterior STEMI s/p GLORY to LAD #Severe CAD #HFmrEF Occlusive lesion in LAD likely culprit s/p GLORY on 10/05 Interventional Cards following GDMT as tolerated ASA and Brilinta--will send to pharmacy for coverage/cost -Statin/Zetia Rest of plan per ICU on consult Formal progress note to follow in am
--- NOTE | 2023-10-06 11:14 | Cardiology Progress Note ---
Date of Service October 06, 2023 Assessment & Plan (1) CAD (coronary artery disease): Plan: --Anterior STEMI -- PPCI to prox-mid LAD with 2 GLORY --Residual 70% mid LCx 2. ICM - EF 40-45% - LAD wall motion abnormality 3. Hypertension 4. Dyslipidemia 5. Carotid artery disease post CEA/stenting 6. COPD/ILD 7. Ureteral cancer 8. Pulmonary hypertension 9. Post cardiac injury/acute pericarditis 10. PVCs/NSVT Moderate recurrent chest pain this morning -- pleuritic, friction rub on exam and small pericardial effusion on echo. ECG stable. --> suspect pain secondary to post-cardiac injury/pericarditis. Hemodynamically stable Decreased ventricular ectopy after beta-sonia No access site complication. No heart failure on exam. -- Trend troponin until peak -- Continue DAPT with Ticagrelor -- Start colchicine 0.6 mg BID -- Increase ASA to 650 TID -- Continue PPI -- Continue current metoprolol, Losartan -- Continue current atorvastatin, Zetia -- NPO past midnight for staged PCI of circumflex tomorrow AM. Appreciate ICU and hospital medicine teams care. Admission and Anticipated Discharge Date Admission Date: October 06, 2023 Subjective Initially feeling well post PCI. This morning with burning chest pain, up to 6/10. Somewhat worse with inspiration. Received slntg with minimal change, became nauseas and hypotensive to 90s. Telemetry reviewed -- frequent PVCs, NSVT Review of Systems Review of Systems: All systems reviewed & are unremarkable except as noted in HPI & below Physical Exam Physical Exam: General: Resting but uncomfortable. HEENT: Sclerae anicteric Lungs: Clear bilaterally Cardiac: Regular rate and rhythm, + rub at LLSB Vascular: 2+ RT radial artery with no ecchymosis/hematoma. Intact distal sensation/capillary refill. Abdomen: Soft, nontender Extremities: Well perfused, no peripheral edema Psych: Alert orient x3 Results & Data Vital Signs (Past 12 Hours) Vital Signs Temp Pulse Pulse Resp BP BP Pulse Ox 10/06/23 10:16 65 25 H 93 10/06/23 10:16 99/67 L 10/06/23 10:00 133/95 10/06/23 10:00 62 27 H 96 10/06/23 09:30 61 20 96 03/17/24 09:00 135/90 10/06/23 09:00 64 20 96 10/06/23 08:30 65 24 95 10/06/23 08:00 111/74 10/06/23 08:00 62 16 98 10/06/23 07:30 61 23 98 10/06/23 07:00 118/84 10/06/23 07:00 56 L 12 97 10/06/23 06:30 57 L 14 98 10/06/23 06:00 112/80 10/06/23 06:00 63 14 98 10/06/23 05:36 60 14 99 10/06/23 05:36 129/84 10/06/23 05:00 56 L 14 95 10/06/23 05:00 112/84 10/06/23 04:31 110/80 10/06/23 04:31 64 19 95 10/06/23 04:00 118/88 10/06/23 04:00 57 L 16 95 10/06/23 03:31 115/92 10/06/23 03:31 65 22 97 10/06/23 03:30 60 13 97 10/06/23 03:00 117/88 10/06/23 03:00 61 9 L 95 10/06/23 02:45 59 L 20 96 10/06/23 02:45 118/84 10/06/23 02:30 56 L 26 H 94 10/06/23 02:30 112/82 10/06/23 02:15 100/75 10/06/23 02:15 66 17 93 10/06/23 02:00 103/71 10/06/23 02:00 61 18 93 10/06/23 01:52 10/06/23 01:51 10/06/23 01:45 57 L 14 94 10/06/23 01:45 95/70 L 10/06/23 01:39 97.7 F 58 L 18 118/90 91 10/06/23 01:32 105/72 10/06/23 01:32 64 18 92 10/06/23 01:30 64 17 92 10/06/23 01:26 58 L 10 L 93 10/05/23 23:56 98.4 F 57 L 18 122/90 97 O2 Del Method O2 Del Method 10/06/23 10:16 10/06/23 10:16 10/06/23 10:00 10/06/23 10:00 10/06/23 09:30 10/06/23 09:00 10/06/23 09:00 10/06/23 08:30 10/06/23 08:00 10/06/23 08:00 10/06/23 07:30 10/06/23 07:00 10/06/23 07:00 10/06/23 06:30 10/06/23 06:00 10/06/23 06:00 10/06/23 05:36 10/06/23 05:36 10/06/23 05:00 10/06/23 05:00 10/06/23 04:31 10/06/23 04:31 10/06/23 04:00 10/06/23 04:00 10/06/23 03:31 10/06/23 03:31 10/06/23 03:30 10/06/23 03:00 10/06/23 03:00 10/06/23 02:45 10/06/23 02:45 10/06/23 02:30 10/06/23 02:30 10/06/23 02:15 10/06/23 02:15 10/06/23 02:00 10/06/23 02:00 10/06/23 01:52 Room Air 10/06/23 01:51 Room Air 10/06/23 01:45 10/06/23 01:45 10/06/23 01:39 Room Air 10/06/23 01:32 10/06/23 01:32 10/06/23 01:30 10/06/23 01:26 10/05/23 23:56 Room Air PG Care Time/CCT Total # of Minutes Spent Total Time Spent with Patient: Total time spent is greater than 50% in coordination of care (as documented) at patient's floor/unit and/or counseling patient: Coding Level of Care Code 51952 SUB INP/OBS CARE 3/50MIN Diagnoses CAD (coronary artery disease) I25.10
--- NOTE | 2023-10-06 11:24 | XCELERA ---
[id number]
[2023-10-06] MEDS: KETOROLAC TROMETHAMINE 15 MG/ML VIAL ONE (12:05)
[2023-10-06] MEDS: KETOROLAC TROMETHAMINE 15 MG/ML VIAL IV ONE (12:05)
[2023-10-06] MEDS: COLCHICINE 0.6 MG TAB PO SCH (12:09)
[2023-10-06] MEDS: ASPIRIN 325 MG ECTAB PO SCH (12:09)
--- NOTE | 2023-10-06 12:23 | Electrocardiogram Report ---
Test Reason : Blood Pressure : / mmHG Vent. Rate : 059 BPM Atrial Rate : 059 BPM P-R Int : 170 ms QRS Dur : 092 ms QT Int : 410 ms P-R-T Axes : 065 076 084 degrees QTc Int : 405 ms Sinus bradycardia Possible Left atrial enlargement Anteroseptal infarct (cited on or before 05-OCT-2023) Abnormal ECG When compared with ECG of 06-OCT-2023 08:54, (unconfirmed) No significant change was found Confirmed by Swapnil Adams ([id number]) on 10/06/2023 12:22:57 PM Referred By: REFERRED SELF Confirmed By:Crispin Adams
--- NOTE | 2023-10-06 12:25 | Electrocardiogram Report ---
Test Reason : Blood Pressure : / mmHG Vent. Rate : 059 BPM Atrial Rate : 059 BPM P-R Int : 174 ms QRS Dur : 094 ms QT Int : 412 ms P-R-T Axes : 067 074 069 degrees QTc Int : 407 ms Sinus bradycardia Anteroseptal infarct (cited on or before 05-OCT-2023) Abnormal ECG When compared with ECG of 05-OCT-2023 23:54, Serial changes of evolving Anteroseptal infarct Present Confirmed by Swapnil Adams ([id number]) on 10/06/2023 12:24:45 PM Referred By: REFERRED SELF Confirmed By:Crispin Adams
[2023-10-06] MEDS: MoRPHine SULFATE 2 MG/ML CARP IV PRN (15:53)
[2023-10-06] MEDS: traMADol HCL 50 MG TABLET PO PRN (19:29)
[2023-10-06] MEDS ORDERED: ATORVASTATIN 40 MG TAB PO SCH (21:00)
[2023-10-06] MEDS ORDERED: ASPIRIN 81 MG ECTAB PO SCH (21:00)
[2023-10-06] MEDS: ATORVASTATIN 40 MG TAB PO SCH (21:35)
[2023-10-07 04:36] LABS: Basophils # (auto) 0.04 K/uL (0.00-0.20); Basophils % (auto) 0.3 %; Eosinophils # (auto) 0.05 K/uL (0.00-0.50); Eosinophils % (auto) 0.4 %; Hemoglobin 14.3 g/dl (14.0-18.0); Immature Granulocytes # (auto) 0.07 K/uL (0.01-0.20); Immature Granulocytes % (auto) 0.6 %; Lymphocytes # (auto) 1.83 K/uL (1.20-3.40); Lymphocytes % (auto) 15.7 %; Mean Corpuscular Hgb Conc 34.9 g/dL (32.0-36.0); Mean Corpuscular Volume 91.7 fL (80.0-100.0); Mean Platelet Volume 11.1 fL (9.4-12.4); Monocytes # (auto) 1.76 K/uL (0.11-0.59); Monocytes % (auto) 15.1 %; Neutrophils # (auto) 7.91 K/uL (1.40-6.50); Neutrophils % (auto) 67.9 %; Platelet Count 162 K/uL (130-400); RDW Coefficient of Variation 13.9 % (11.5-14.5); RDW Standard Deviation 47.1 fL (36.4-46.3); Red Blood Count 4.47 M/uL (4.70-6.10); White Blood Count 11.66 K/ul (4.8-10.8)
[2023-10-07 04:55] LABS: BUN Creatinine Ratio 14.3 (10-20); Calcium 8.8 mg/dl (8.6-10.3); Creatinine Clr Calc Pharmacy 129.7 ml/min; Est GFR (African American) 119.9 ml/min; Est GFR (Non-African American) 103.4 ml/min; Potassium 4.2 mmol/L (3.5-5.1)
--- NOTE | 2023-10-07 07:11 | Hospitalist Progress Note ---
Date of Service October 07, 2023 Assessment & Plan (1) Acute ST elevation myocardial infarction (STEMI): Plan: Mr. Rao is a 63-year-old male with past medical history significant for hyperlipidemia, COPD, TIA, hypertension, bilateral carotid stenosis, chronic idiopathic constipation, GERD, history of left ureteral cancer, osteoarthritis, history of poliomyelitis, history of tobacco use disorder presented with chest pain on 10/05 and found to have anterior STEMI now s/p LHC with GLORY to proximal LAD. Throughout the morning after the LHC, patient experienced chest pain and nausea. Interventional Cards suspected pericarditis and started colchicine. Yehuda tionally, given LHC on the morning of 10/05 revealed multivessel severe disease, patient scheduled for staged PCI for further intervention 10/06. #Post-cath chest pain, c/f pericarditis #Multivessel CAD s/p staged PCI with stent to distal LCx #Acute anterior STEMI s/p cardiac cath and found 100% proximal LAD occlusion s/p 2 drug-eluting stents 10/05 Also found to have about 70% late mid stenosis of the circumflex. RCA small nondominant 70% diffuse mid segment disease. Post cath echo with effusion and rub on exam Loaded with Brilinta, continue 90mg BID (covered by insurance, no copay reported) Continue ASA Started on colchicine 0.6mg BID Continue Lopressor 25 p.o. twice daily losartan 25 mg twice daily, Lipitor 80 mg p.o. 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 S/p BCG treatments Follow-up with urology and heme-onc #Constipation On MiraLAX daily #GERD PPI DVT prophylaxis SCDs for now Disposition ICU Full code Admission and Anticipated Discharge Date Admission Date: October 06, 2023 Subjective s/p staged PCI with stent to Lcx this morning Evaluated at bedside, reports feeling notably improved with near resolution of chest pain this morning Reports appetite is returning and eager for recovery Denies any nausea at this time Physical Exam Constitutional: WD/WN, vitals as above Respiratory: normal respiratory effort, lungs clear to auscultation Cardiovascular: RRR, no murmur, no edema Gastrointestinal (Abdomen): normal bowel sounds, soft, nontender, no hepatosplenomegaly Skin: no rashes, warm and dry Neurologic: PERRL, EOMI, accommodation nl, no face palsy, no dysarthria Results & Data Results & Data Vital Signs (Past 12 Hours) Vital Signs Temp Pulse Resp BP Pulse Ox Pulse Ox O2 Del Method 10/07/23 06:00 36.7 C 10/07/23 06:00 84 10 L 92 10/07/23 06:00 108/78 10/07/23 05:00 82 3 L 91 10/07/23 05:00 112/77 10/07/23 04:00 102/75 10/07/23 04:00 86 15 91 10/07/23 03:00 86 23 91 10/07/23 03:00 112/76 10/07/23 02:00 106/77 10/07/23 02:00 88 16 90 10/07/23 01:04 91 Room Air 10/07/23 01:00 82 20 90 10/07/23 01:00 106/81 10/07/23 00:00 36.7 C 10/07/23 00:00 79 10/07/23 00:00 91 H 24 91 10/07/23 00:00 101/73 10/06/23 23:00 83 23 90 10/06/23 23:00 108/82 10/06/23 22:00 113/79 10/06/23 22:00 78 18 89 L 10/06/23 21:00 119/80 10/06/23 21:00 84 19 94 10/06/23 20:00 36.7 C 10/06/23 20:00 120/82 10/06/23 20:00 81 22 95 Laboratory Results Short CBC 10/07/23 Range/Units 04:07 WBC 11.66 H (4.8-10.8) K/ul Hgb 14.3 (14.0-18.0) g/dl Hct 41.0 L (42.0-52.0) % Plt Count 162 (130-400) K/uL BMP 10/07/23 04:07 Sodium 134 L Potassium 4.2 Chloride 105 Carbon Dioxide 23 BUN 9 Creatinine 0.63 Glucose 115 H Calcium 8.8 Medications Administered Home Medications Medication Instructions Recorded Confirmed Last Taken aspirin 81 mg tablet,delayed 81 mg PO HS 04/09/18 10/06/23 08/05/22 release metoprolol tartrate 50 mg tablet 50 mg PO BID #60 tabs 07/24/22 10/06/23 08/13/22 05:00 (Lopressor) acetaminophen 650 mg 1,300 mg PO Q12H PRN Pain 08/03/22 10/06/23 08/10/22 tablet,extended release (Tylenol Arthritis Pain) atorvastatin 80 mg tablet 80 mg PO QPM 08/03/22 10/06/23 08/12/22 07:30 ezetimibe 10 mg tablet (Zetia) 10 mg PO QAM #90 tabs 09/24/22 10/06/23 Unknown albuterol sulfate 90 mcg/actuation 2 puff inhalation Q6H PRN 10/26/22 10/06/23 Unknown aerosol inhaler Shortness Of Breath Or Wheezing #18 grams tiotropium bromide 2.5 2 puff inhalation QAM #4 grams 10/26/22 10/06/23 Unknown mcg/actuation mist for inhalation (Spiriva Respimat) albuterol sulfate 2.5 mg/3 mL 2.5 mg inhalation DIRECTED PRN 10/06/23 10/06/23 Unknown (0.083 %) solution for nebulization Shortness Of Breath Or Wheezing amlodipine 5 mg tablet 5 mg PO QAM 10/06/23 10/06/23 Unknown diclofenac sodium 1 % topical gel 2 g topical QID PRN Pain 10/06/23 10/06/23 Unk nown (Voltaren Arthritis Pain) epinephrine 0.3 mg/0.3 mL 0.3 mg IM DIRECTED PRN 10/06/23 10/06/23 Unknown injection, auto-injector (EpiPen) anaphylaxis fluticasone 250 mcg-salmeterol 50 1 inh inhalation BID 10/06/23 10/06/23 Unknown mcg/dose blistr powdr for inhalation (Advair Diskus) losartan 100 mg tablet 100 mg PO QAM 10/06/23 10/06/23 Unknown omeprazole 20 mg capsule,delayed 20 mg PO QAM 10/06/23 10/06/23 Unknown release paroxetine HCl 10 mg tablet 10 mg PO QAM 10/06/23 10/06/23 Unknown polyethylene glycol 3350 17 17 g PO DAILY 10/06/23 10/06/23 Unknown gram/dose oral powder (Miralax) solifenacin 5 mg tablet 5 mg PO QAM 10/06/23 10/06/23 Unknown ticagrelor 90 mg tablet (Brilinta) 90 mg PO BID 30 days #60 tabs 10/06/23 Unknown tramadol 50 mg tablet 50 mg PO Q6H PRN Pain 10/06/23 10/06/23 Unknown Active Medications Generic Name Dose Route Start Last Admin Trade Name Freq PRN Reason Stop Dose Admin Aspirin 650 mg 10/06/23 11:40 10/07/23 06:42 Aspirin 325 Mg Ectab PO 11/05/23 11:39 650 mg TID ELY Administration Atorvastatin Calcium 80 mg 10/06/23 21:00 10/06/23 21:35 Atorvastatin 40 Mg Tab PO 11/05/23 20:59 80 mg QPM ELY Administration Colchicine 0.6 mg 10/06/23 11:45 10/06/23 20:59 Colchicine 0.6 Mg Tab PO 11/05/23 11:44 0.6 mg BID ELY Administration Ezetimibe 10 mg 10/06/23 09:00 10/06/23 07:55 Ezetimibe 10 Mg Tab PO 11/05/23 08:59 10 mg QAM ELY Administration Fluticasone/Vilanterol 1 puffs 10/06/23 09:00 10/06/23 07:56 Fluticasone/Vilanterol 200/25mcg 14 Puffs/Inhaler INH 11/05/23 08:59 1 puffs DAILY ELY Administration Losartan Potassium 25 mg 10/06/23 09:00 10/06/23 20:59 Losartan Potassium 25 Mg Tab PO 11/05/23 08:59 25 mg BID ELY Administration Metoprolol Tartrate 25 mg 10/06/23 09:00 10/06/23 20:59 Metoprolol Tartrate 25 Mg Tab PO 11/05/23 08:59 25 mg BID ELY Administration Miscellaneous 1 each 10/06/23 07:30 10/06/23 21:04 Icu Protocol For Hyperglycemia N/A 10/08/23 07:29 Not Given ACHS ELY Morphine Sulfate 2 mg 10/06/23 11:37 10/06/23 15:53 Morphine Sulfate 2 Mg/Ml Carp IV 10/20/23 11:36 2 mg Q3H PRN Administration Pain Ondansetron HCl 4 mg 10/06/23 01:05 10/06/23 10:24 Ondansetron Inj 2 Mg/Ml 2 Ml Vial IV 11/05/23 01:04 4 mg Q6H PRN Administration Nausea And Vomiting Oxybutynin Chloride 5 mg 10/06/23 09:00 10/06/23 07:57 Oxybutynin Chloride Xl 5 Mg Tabcr PO 11/05/23 08:59 5 mg QAM ELY Administration Pantoprazole Sodium 40 mg 10/06/23 09:00 10/06/23 07:57 Pantoprazole 40 Mg Tab PO 11/05/23 08:59 40 mg DAILY ELY Administration Paroxetine HCl 10 mg 10/06/23 09:00 10/06/23 07:58 Paroxetine Hcl 10 Mg Tab PO 11/05/23 08:59 10 mg QAM ELY Administration Polyethylene Glycol 17 gm 10/06/23 09:00 10/06/23 08:00 Polyethylene (Miralax) 17 Gm Pack PO 11/05/23 08:59 17 gm DAILY ELY Administration Ticagrelor 90 mg 10/06/23 09:00 10/07/23 06:42 Ticagrelor 90 Mg Tab PO 11/05/23 08:59 90 mg BID ELY Administration Tramadol HCl 50 mg 10/06/23 01:37 10/06/23 19:29 Tramadol Hcl 50 Mg Tablet PO 11/05/23 01:36 50 mg Q6H PRN Administration Pain Umeclidinium [place] 1 puffs 10/06/23 09:00 10/06/23 07:58 Umeclidinium [place] 62.5mcg/Blister 7 Puffs/Inhaler INH 11/05/23 08:59 1 puffs QAM ELY Administration (1) Acute ST elevation myocardial infarction (STEMI) Involved coronary artery: unspecified coronary artery Qualified Code(s): I21.3 - ST elevation (STEMI) myocardial infarction of unspecified site
--- NOTE | 2023-10-07 07:18 | Pre Anesthesia Assessment ---
Date of Service October 07, 2023 Pre Sedation Assessment Vital Signs Temp Pulse Resp BP Pulse Ox Pulse Ox O2 Del Method 10/07/23 06:00 98.1 F 10/07/23 06:00 84 10 L 92 10/07/23 06:00 108/78 10/07/23 05:00 82 3 L 91 10/07/23 05:00 112/77 10/07/23 04:00 102/75 10/07/23 04:00 86 15 91 10/07/23 03:00 86 23 91 10/07/23 03:00 112/76 10/07/23 02:00 106/77 10/07/23 02:00 88 16 90 10/07/23 01:04 91 Room Air 10/07/23 01:00 82 20 90 10/07/23 01:00 106/81 10/07/23 00:00 98.1 F 10/07/23 00:00 79 10/07/23 00:00 91 H 24 91 10/07/23 00:00 101/73 10/06/23 23:00 83 23 90 10/06/23 23:00 108/82 10/06/23 22:00 113/79 10/06/23 22:00 78 18 89 L 10/06/23 21:00 119/80 10/06/23 21:00 84 19 94 10/06/23 20:00 98.1 F 10/06/23 20:00 120/82 10/06/23 20:00 81 22 95 10/06/23 19:00 78 10/06/23 19:00 80 23 95 10/06/23 19:00 130/91 10/06/23 18:00 114/88 10/06/23 18:00 84 14 94 10/06/23 17:00 126/90 10/06/23 17:00 74 34 H 94 10/06/23 16:00 118/88 10/06/23 16:00 80 27 H 94 10/06/23 16:00 61 10/06/23 15:00 123/82 10/06/23 15:00 70 18 96 10/06/23 14:00 119/82 10/06/23 14:00 65 15 97 10/06/23 13:00 118/82 10/06/23 13:00 69 23 96 10/06/23 12:00 61 14 95 10/06/23 12:00 110/77 10/06/23 11:00 125/90 10/06/23 11:00 63 12 96 10/06/23 10:24 84 13 94 10/06/23 10:24 119/81 10/06/23 10:16 65 25 H 93 10/06/23 10:16 99/67 L 10/06/23 10:00 133/95 10/06/23 10:00 62 27 H 96 10/06/23 09:30 61 20 96 10/06/23 09:00 135/90 10/06/23 09:00 64 20 96 10/06/23 08:30 65 24 95 10/06/23 08:12 65 10/06/23 08:00 65 10/06/23 08:00 111/74 10/06/23 08:00 62 16 98 10/06/23 07:30 61 23 98 Cardiovascular + regular rate Respiratory + respiratory effort normal Pre-Sedation Airway Assessment Smoking Status: Never smoker Hx Sleep Apnea: No Hx Difficult Intubation: No Short, Thick Neck: No Thyromental Distance: < 3.5 Finger Breadths Oral Cavity: + WNL Mallampati Class: III ASA: ASA4 Procedure Planning Contraindications for Sedation: none Current Medications Reviewed: Yes Notes The planned sedation has been discussed with the patient. Informed Consent was obtained. I have identified the patient, determined the appropriateness of sedation and have assessed the patient immediately prior to the procedure. All medicine(s) and interventions are by my order.
--- NOTE | 2023-10-07 07:19 | Cardiology Progress Note ---
Date of Service October 07, 2023 Assessment & Plan (1) CAD (coronary artery disease): Plan: --Anterior STEMI -- PPCI to prox-mid LAD with 2 GLORY -- Staged PCI with additional GLORY to mid to distal circumflex 2. ICM - EF 40-45% - LAD wall motion abnormality 3. Hypertension 4. Dyslipidemia 5. Carotid artery disease post CEA/stenting 6. COPD/ILD 7. Ureteral cancer 8. Pulmonary hypertension 9. Post cardiac injury/acute pericarditis 10. PVCs/NSVT Chest pain improved this morning. Troponin downtrending. Hemodynamically stable Underwent uncomplicated PCI to circumflex today. Prior LAD stent widely patent From cardiac standpoint okay with transfer to telemetry today. --Continue NSAIDs, colchicine for pericarditis chest pain. Check CRP in a.m. Repeat limited echo tomorrow a.m. to reassess LV function, pericardial effusion, rule out LV thrombus Continue DAPT with Ticagrelor, high-dose ASA -- Continue PPI -- Continue current metoprolol, Losartan -- Continue current atorvastatin, Zetia Appreciate ICU and hospital medicine teams care. Admission and Anticipated Discharge Date Admission Date: October 06, 2023 Subjective Chest pain improved this morning. Mild residual pleuritic discomfort. No other events overnight. Underwent planned PCI of circumflex today. Procedure uncomplicated. Review of Systems Review of Systems: All systems reviewed & are unremarkable except as noted in HPI & below Physical Exam Physical Exam: General: Comfortable HEENT: Sclerae anicteric Lungs: Clear bilaterally Cardiac: Regular rate and rhythm Vascular: TR band in place Abdomen: Soft, nontender Extremities: Well perfused, no peripheral edema Psych: Alert orient x3 Results & Data Vital Signs (Past 12 Hours) Vital Signs Temp Pulse Resp BP Pulse Ox Pulse Ox O2 Del Method 10/07/23 06:00 98.1 F 10/07/23 06:00 84 10 L 92 10/07/23 06:00 108/78 10/07/23 05:00 82 3 L 91 10/07/23 05:00 112/77 10/07/23 04:00 102/75 10/07/23 04:00 86 15 91 10/07/23 03:00 86 23 91 10/07/23 03:00 112/76 10/07/23 02:00 106/77 10/07/23 02:00 88 16 90 10/07/23 01:04 91 Room Air 10/07/23 01:00 82 20 90 10/07/23 01:00 106/81 10/07/23 00:00 98.1 F 10/07/23 00:00 79 10/07/23 00:00 91 H 24 91 10/07/23 00:00 101/73 10/06/23 23:00 83 23 90 10/06/23 23:00 108/82 10/06/23 22:00 113/79 10/06/23 22:00 78 18 89 L 10/06/23 21:00 119/80 10/06/23 21:00 84 19 94 10/06/23 20:00 98.1 F 10/06/23 20:00 120/82 10/06/23 20:00 81 22 95 PG Care Time/CCT Total # of Minutes Spent Total Time Spent with Patient: Total time spent is greater than 50% in coordination of care (as documented) at patient's floor/unit and/or counseling patient: Coding Level of Care Code 87665 SUB INP/OBS CARE 3/50MIN Diagnoses CAD (coronary artery disease) I25.10
[2023-10-07 07:20] LABS: Estimated Average Glucose 137 mg/dl; Hemoglobin A1C 6.4 % (4.5-5.6)
[2023-10-07] MEDS: niCARdipine HCL INJ 2.5 MG/ML 10 ML AMP ONE (07:36)
[2023-10-07] MEDS: NITROGLYCERIN/D5W 100MCG/ML 20ML SYR ONE (07:37)
[2023-10-07] MEDS: fentaNYL citrate PF 100 MCG/2 ML VIAL ONE (07:56)
[2023-10-07] MEDS: HEPARIN (PORCINE) 1000 UNIT/ML 10 ML (CATH LAB USE ONLY) ONE (07:56)
[2023-10-07] MEDS: MIDAZOLAM HCL 1 MG/ML 2ML VIAL ONE (07:57)
[2023-10-07] MEDS: OPTIRAY 350 ONE (07:59)
--- NOTE | 2023-10-07 08:02 | Post Anesthesia Assessment ---
Date of Service October 07, 2023 Post Sedation Assessment Vital Signs Temp Pulse Resp BP Pulse Ox Pulse Ox O2 Del Method 10/07/23 06:00 98.1 F 10/07/23 06:00 84 10 L 92 10/07/23 06:00 108/78 10/07/23 05:00 82 3 L 91 10/07/23 05:00 112/77 10/07/23 04:00 102/75 10/07/23 04:00 86 15 91 10/07/23 03:00 86 23 91 10/07/23 03:00 112/76 10/07/23 02:00 106/77 10/07/23 02:00 88 16 90 10/07/23 01:04 91 Room Air 10/07/23 01:00 82 20 90 10/07/23 01:00 106/81 10/07/23 00:00 98.1 F 10/07/23 00:00 79 10/07/23 00:00 91 H 24 91 10/07/23 00:00 101/73 10/06/23 23:00 83 23 90 10/06/23 23:00 108/82 10/06/23 22:00 113/79 10/06/23 22:00 78 18 89 L 10/06/23 21:00 119/80 10/06/23 21:00 84 19 94 10/06/23 20:00 98.1 F 10/06/23 20:00 120/82 10/06/23 20:00 81 22 95 10/06/23 19:00 78 10/06/23 19:00 80 23 95 10/06/23 19:00 130/91 10/06/23 18:00 114/88 10/06/23 18:00 84 14 94 10/06/23 17:00 126/90 10/06/23 17:00 74 34 H 94 10/06/23 16:00 118/88 10/06/23 16:00 80 27 H 94 10/06/23 16:00 61 10/06/23 15:00 123/82 10/06/23 15:00 70 18 96 10/06/23 14:00 119/82 10/06/23 14:00 65 15 97 10/06/23 13:00 118/82 10/06/23 13:00 69 23 96 10/06/23 12:00 61 14 95 10/06/23 12:00 110/77 10/06/23 11:00 125/90 10/06/23 11:00 63 12 96 10/06/23 10:24 84 13 94 10/06/23 10:24 119/81 10/06/23 10:16 65 25 H 93 10/06/23 10:16 99/67 L 10/06/23 10:00 133/95 10/06/23 10:00 62 27 H 96 10/06/23 09:30 61 20 96 10/06/23 09:00 135/90 10/06/23 09:00 64 20 96 10/06/23 08:30 65 24 95 10/06/23 08:12 65 Recovery Score Activity: Moves 4 extremities Respiration: Deep Breath/Cough Circulation: +/-20% PreAnes Value Consciousness: Fully Awake Oxygen Saturation: O2 needed for >90% Discharge Sedation Level of Care: Fast Track Phase II Post Sedation Plan On clinical assessment, the patient appears to have tolerated the sedation without complications. Patient is recovering as anticipated. Patient will continue to be monitored by nursing and may be discharged when sedation discharge criteria are met per below protocol. Upon Completions of procedure up to 15 minutes continue every 5 minute vital signs and the P.A.R. score; then discharge to a Phase I or Fast Track to Phase II per the following guidelines: * Discharge Patient to appropriate Phase II area if PAR is 8 or greater or return to pre- procedure baseline. The post - procedure orders will be as directed. * If PAR score is less than 8 or not return to pre-procedure baseline then patient will follow Phase I monitoring till PAR is reached for Phase II. The Phase I may be done in procedure room or may call to secure a Phase I area. * If naloxone or flumazenil are used for reversal, hold in Phase I for continued monitoring from when last reversal dose was given for a minimum of 60 minutes or longer pending the nurse and/or physician discretion of patient condition before discharge to Phase II. Please call the Sedation Physician to re-evaluate and complete post-note for discharge to Phase II area. Do NOT discharge from procedure sedation or Phase 1 until post- sedation evaluation note is complete by procedure /sedation MD Sedation Discharge Instructions to be given to the patient at discharge to home.
--- NOTE | 2023-10-07 08:08 | Cardiac Catheterization ---
[facility] Data: [employer] Cardiac Status Clinical evaluation leading to the procedure CAD Presenation: STEMI Anginal Classification: CCS IV Diagnostic Physicians Name: Swapnil Khan MD Closure Device Recommendations: PCI without planned CABG Cardiac Cath Procedure Full Procedure Date October 07, 2023 Pre-Procedure Diagnosis Pre-Procedure Diagnosis: CAD AUC Score AUC Score: 7 Post-Procedure Diagnosis Post-Procedure Diagnosis: Severe CAD, Successful PCI and Elevated Intracardiac Pressures Procedure(s) Performed Procedure(s) Performed: Coronary Angiography, Left Heart Cath and Drug Eluting Stent Rn Pacu Swapnil Khan MD Suppression Crew Leader(s) Deibler Estimated Blood Loss Estimated Blood Loss: 15 Medication(s) Medication(s): Fentanyl, Heparin, Lidocaine 1%, Nicardipine, Nitroglycerin and Versed Medication(s): Ticagrelor Summary of Findings Indication: Staged PCI of severe circumflex disease. Post primary PCI for anterior STEMI with 2 GLORY to LAD Access: 6 Fr right radial artery Catheters: EBU 3.5 guide, pigtail Findings: LM -normal caliber, no significant disease LAD - widely patent proximal to mid LAD stents Circumflex -dominant, medium caliber, 70% latemid stenosis. Distal vessel without significant disease. Small L PDA without disease. Medium bifurcating OM1 with luminal irregularities. LVEDP -22 -- PCI -- Antithrombotic therapy: Heparin, ticagrelor Procedure: Left main cannulated with EBU 3.5 guide Pre-procedure flow DOMINIC 3 BMW wire passed across lesion into distal vessel Mid LAD lesion predilated with 2.5 compliant balloon Dilated lesion stented with 2.75 x 26 mm Jeff drug-eluting stent Stent post-dilated with 3 point noncompliant balloon IC vasodilators administered for spasm Post procedure DOMINIC 3 flow, stent well expanded with minimal residual stenosis and no apparent cardiac complications. Arterial Closure: TR band Summary: 1. Successful PCI of mid to distal circumflex with single drug-eluting stent (2.75 x 26 mm Jeff; postdilated with 3.0 NC). Recommendations: Continue dual-antiplatelet therapy with aspirin, ticagrelor Continue statin, and ASCVD risk factor modification Hemodynamics Rest Ao:: 89/61/74 Final Ao: 101/67/80 LV: 102/22 Recommendations Recommendations: PCI without planned CABG Specimens Specimens: None Radiation Exposure (mGy) 1466 Contrast (mls) 50 Anesthesia Moderate 6117-3530 Procedural Complication(s) None Disposition ICU I attest to the content of the Intraoperative Record and any orders documented therein. Any exceptions are noted below. [facility] Card Cath Procedure Codes Cardiac Catheterization Procedure 1: Cardiovascular Cath Procedures: 35405 Left Heart Cath (+/-LV) Moderate Sedation Procedure 1: Sedation/Anesthesia: 61200 Mod Sedation by the same physician;Init15 Min Child Age 5 & Up Stenting Procedure 1: Cardiovascular Stent Procedures: 66187 Perc transcatheter placement of intracoronary stent(s), with ang PG Care Time/CCT Total # of Minutes Spent Total Time Spent with Patient: Total time spent is greater than 50% in coordination of care (as documented) at patient's floor/unit and/or counseling patient:
[2023-10-07] MEDS: LIDOCAINE 1% LOCAL 20 ML VIAL ONE (08:49)
--- NOTE | 2023-10-07 08:50 | Electrocardiogram Report ---
Test Reason : Blood Pressure : / mmHG Vent. Rate : 059 BPM Atrial Rate : 059 BPM P-R Int : 174 ms QRS Dur : 094 ms QT Int : 414 ms P-R-T Axes : 067 065 074 degrees QTc Int : 409 ms Sinus bradycardia Anteroseptal infarct (cited on or before 05-OCT-2023) Abnormal ECG When compared with ECG of 06-OCT-2023 02:03, Serial changes of evolving Anteroseptal infarct Present Confirmed by Swapnil Adams ([id number]) on 10/07/2023 8:50:14 AM Referred By: REFERRED SELF Confirmed By:Crispin Adams
--- NOTE | 2023-10-07 08:51 | Electrocardiogram Report ---
Test Reason : Blood Pressure : / mmHG Vent. Rate : 061 BPM Atrial Rate : 061 BPM P-R Int : 168 ms QRS Dur : 092 ms QT Int : 410 ms P-R-T Axes : 063 066 085 degrees QTc Int : 412 ms Normal sinus rhythm Possible Left atrial enlargement Anteroseptal infarct (cited on or before 05-OCT-2023) Abnormal ECG When compared with ECG of 06-OCT-2023 05:33, (unconfirmed) Serial changes of Anteroseptal infarct Present Confirmed by Swapnil Adams ([id number]) on 10/07/2023 8:51:36 AM Referred By: REFERRED SELF Confirmed By:Crispin Adams
--- NOTE | 2023-10-07 09:04 | Electrocardiogram Report ---
Test Reason : Blood Pressure : / mmHG Vent. Rate : 079 BPM Atrial Rate : 079 BPM P-R Int : 166 ms QRS Dur : 092 ms QT Int : 380 ms P-R-T Axes : 070 063 094 degrees QTc Int : 435 ms Normal sinus rhythm Possible Left atrial enlargement Anteroseptal infarct (cited on or before 05-OCT-2023) Inferior injury pattern ACUTE CT / STEMI Abnormal ECG When compared with ECG of 07-OCT-2023 05:39, (unconfirmed) No significant change was found Confirmed by Swapnil Adams ([id number]) on 10/07/2023 9:04:23 AM Referred By: REFERRED SELF Confirmed By:Crispin Adams
--- NOTE | 2023-10-07 09:05 | Electrocardiogram Report ---
Test Reason : Blood Pressure : / mmHG Vent. Rate : 088 BPM Atrial Rate : 088 BPM P-R Int : 164 ms QRS Dur : 092 ms QT Int : 368 ms P-R-T Axes : 066 074 092 degrees QTc Int : 445 ms Normal sinus rhythm Possible Left atrial enlargement Anteroseptal infarct (cited on or before 05-OCT-2023) ACUTE DC / STEMI Abnormal ECG When compared with ECG of 06-OCT-2023 11:43, Vent. rate has increased BY 29 BPM Serial changes of Anteroseptal infarct Present Confirmed by Swapnil Adams ([id number]) on 10/07/2023 9:04:29 AM Referred By: REFERRED SELF Confirmed By:Crispin Adams
--- NOTE | 2023-10-07 09:27 | Critical Care Progress Note ---
Date of Service October 07, 2023 Assessment & Plan (1) Acute ST elevation myocardial infarction (STEMI): (2) History of stroke: (3) Impaired fasting glucose: (4) Hypercholesteremia: (5) Ureteral cancer: (6) COPD (chronic obstructive pulmonary disease): (7) Coronary artery disease: Plan Reason Critically Ill: 63 YOM presents to [facility] with STEMI taking urgently to process laboratory specialist, received 2 GLORY to LAD and with residual 70% circ disease to be addressed at later date. To the ICU post cath, currently chest pain free and without need for vasoactive medications. Neuro - Hx of CVA, right CEA with stenting (2006) CAM ICU: Negative - No acute needs at this time Cardiac - STEMI with stents to [place] artery, CAD, HTN, HLD - S/P STEMI with GLORY to LAD - Residual CAD circ 70%, RCA small 70% mid segment disease- per cardiology address at later time - Elevated LVEDP - 40mg Lasix given in process laboratory specialist- follow - Continue DAPT therapy per cardiology- asa/ticagrelor - BB/ARB as hemodynamics permit- ECHO in AM - Atorvastatin 80mg - already initiated, Continue previous Zetia Respiratory - COPD emphysema, previous smoker --COPD with emphysema Gold class B On Spiriva along with as needed albuterol Was recently started on Advair couple of days ago because he was complaining of chest pain by primary care. 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 Reports he feels significantly improved compared to yesterday. Physical Exam Physical Exam: General: Alert. nontoxic. Skin: Warm, dry, Head: Atraumatic Ears, nose, mouth and throat: airway patent Cardiovascular: Normal peripheral perfusion Respiratory: no respiratory distress Gastrointestinal: Non distended Musculoskeletal: No deformity Results & Data Results & Data Vital Signs (Past 12 Hours) Vital Signs Temp Pulse Resp BP Pulse Ox Pulse Ox O2 Del Method 10/07/23 06:00 36.7 C 10/07/23 06:00 84 10 L 92 10/07/23 06:00 108/78 10/07/23 05:00 82 3 L 91 10/07/23 05:00 112/77 10/07/23 04:00 102/75 10/07/23 04:00 86 15 91 10/07/23 03:00 86 23 91 10/07/23 03:00 112/76 10/07/23 02:00 106/77 10/07/23 02:00 88 16 90 10/07/23 01:04 91 Room Air 10/07/23 01:00 82 20 90 10/07/23 01:00 106/81 10/07/23 00:00 36.7 C 10/07/23 00:00 79 10/07/23 00:00 91 H 24 91 10/07/23 00:00 101/73 10/06/23 23:00 83 23 90 10/06/23 23:00 108/82 10/06/23 22:00 113/79 10/06/23 22:00 78 18 89 L Critical Care Results & Data Vital Signs (Past 12 Hours) Vital Signs Temp Pulse Resp BP Pulse Ox Pulse Ox O2 Del Method 10/07/23 06:00 36.7 C 10/07/23 06:00 84 10 L 92 10/07/23 06:00 108/78 10/07/23 05:00 82 3 L 91 10/07/23 05:00 112/77 10/07/23 04:00 102/75 10/07/23 04:00 86 15 91 10/07/23 03:00 86 23 91 10/07/23 03:00 112/76 10/07/23 02:00 106/77 10/07/23 02:00 88 16 90 10/07/23 01:04 91 Room Air 10/07/23 01:00 82 20 90 10/07/23 01:00 106/81 10/07/23 00:00 36.7 C 10/07/23 00:00 79 10/07/23 00:00 91 H 24 91 10/07/23 00:00 101/73 10/06/23 23:00 83 23 90 10/06/23 23:00 108/82 10/06/23 22:00 113/79 10/06/23 22:00 78 18 89 L Lab & Micro Results (Past 24 Hours) RBC 4.47 M/uL (4.70-6.10) L 10/07/23 WBC 11.66 K/ul (4.8-10.8) H 10/07/23 Hgb 14.3 g/dl (14.0-18.0) 10/07/23 Hct 41.0 % (42.0-52.0) L 10/07/23 MCV 91.7 fL (80.0-100.0) 10/07/23 MCH 32.0 pg (25.0-34.0) 10/07/23 MCHC 34.9 g/dL (32.0-36.0) 10/07/23 RDW Standard Deviation 47.1 fL (36.4-46.3) H 10/07/23 RDW Coefficient of Variation 13.9 % (11.5-14.5) 10/07/23 Plt Count 162 K/uL (130-400) 10/07/23 MPV 11.1 fL (9.4-12.4) 10/07/23 Neutrophils (%) (Auto) 67.9 % 10/07/23 Lymphocytes (%) (Auto) 15.7 % 10/07/23 Monocytes # (Auto) 1.76 K/uL (0.11-0.59) H 10/07/23 Eosinophils # (Auto) 0.05 K/uL (0.00-0.50) 10/07/23 Immature Granulocyte % (Auto) 0.6 % 10/07/23 Neutrophils # (Auto) 7.91 K/uL (1.40-6.50) H 10/07/23 Lymphocytes # (Auto) 1.83 K/uL (1.20-3.40) 10/07/23 Monocytes # (Auto) 1.76 K/uL (0.11-0.59) H 10/07/23 Eosinophils # (Auto) 0.05 K/uL (0.00-0.50) 10/07/23 Basophils # (Auto) 0.04 K/uL (0.00-0.20) 10/07/23 Immature Granulocyte # (Auto) 0.07 K/uL (0.01-0.20) 4 Na 134 mmol/L (136-145) L 10/07/23 K 4.2 mmol/L (3.5-5.1) 10/07/23 Cl 105 mmol/L (98-107) 10/07/23 CO2 23 mmol/L (21-32) 10/07/23 Anion Gap 6 (3-11) 10/07/23 BUN 9 mg/dl (6-23) 10/07/23 Creatinine 0.63 mg/dl (0.6-1.4) 10/07/23 Estimated GFR ( Amer) 119.9 ml/min 10/07/23 Estimated GFR (Non-Af Amer) 103.4 ml/min 10/07/23 BUN/Creatinine Ratio 14.3 (10-20) 10/07/23 Glu 115 mg/dl (70-99(Fasting)) H 10/07/23 Ca 8.8 mg/dl (8.6-10.3) 10/07/23 Mg 2.0 mg/dl (1.7-2.4) 10/07/23 04:07 Calcium Level 8.8 mg/dl (8.6-10.3) 10/07/23 04:07 I & O Totals 24 Hours 10/06/23 10/07/23 10/08/23 06:59 06:59 06:59 Intake Total 200 / 200 Output Total 750 / 750 1650 / 2000 350 / 350 Balance -750 / -750 -1450 / -1800 -350 / -350 Cumulative 10/05/23 23:34 thru 10/07/23 07:00 Intake Total 200 Output Total 2750 Balance -2550 RT Ventilator Mngmt (Last Documented) Ventilator Ordered Settings Respiratory Rate 10 10/07/23 06:00 Ventilator - PT Measurements Respiratory Rate 10 Coding Level of Care Code 39432 SUB INP/OBS CARE 3/50MIN Diagnoses Acute ST elevation myocardial infarction (STEMI) I21.3 Involved coronary artery: unspecified coronary artery History of stroke Z86.73 Impaired fasting glucose R73.01 Hypercholesteremia E78.00 Ureteral cancer C66.9 COPD (chronic obstructive pulmonary disease) J44.9 Coronary artery disease I25.10 (1) Acute ST elevation myocardial infarction (STEMI) Involved coronary artery: unspecified coronary artery Qualified Code(s): I21.3 - ST elevation (STEMI) myocardial infarction of unspecified site
[2023-10-07] MEDS: DOCUSATE SODIUM 100 MG CAP PO ONE (18:13)
[2023-10-07] MEDS: DOCUSATE SODIUM 100 MG CAP PO SCH (18:19)
[2023-10-08 04:33] LABS: Basophils # (auto) 0.06 K/uL (0.00-0.20); Basophils % (auto) 0.5 %; Eosinophils # (auto) 0.06 K/uL (0.00-0.50); Eosinophils % (auto) 0.5 %; Hematocrit (blood only) 41.7 % (42.0-52.0); Hemoglobin 14.8 g/dl (14.0-18.0); Immature Granulocytes % (auto) 0.9 %; Lymphocytes # (auto) 1.81 K/uL (1.20-3.40); Lymphocytes % (auto) 15.5 %; Mean Corpuscular Hemoglobin 32.4 pg (25.0-34.0); Mean Corpuscular Hgb Conc 35.5 g/dL (32.0-36.0); Mean Corpuscular Volume 91.2 fL (80.0-100.0); Mean Platelet Volume 11.2 fL (9.4-12.4); Monocytes # (auto) 1.72 K/uL (0.11-0.59); Monocytes % (auto) 14.7 %; Neutrophils # (auto) 7.92 K/uL (1.40-6.50); Neutrophils % (auto) 67.9 %; Platelet Count 157 K/uL (130-400); RDW Coefficient of Variation 13.6 % (11.5-14.5); RDW Standard Deviation 45.8 fL (36.4-46.3); Red Blood Count 4.57 M/uL (4.70-6.10); White Blood Count 11.67 K/ul (4.8-10.8)
[2023-10-08 04:48] LABS: BUN Creatinine Ratio 17.2 (10-20); C Reactive Protein 21.34 mg/dl (0-0.5); Calcium 8.9 mg/dl (8.6-10.3); Creatinine Clr Calc Pharmacy 87.8 ml/min; Est GFR (African American) 99.5 ml/min; Est GFR (Non-African American) 85.8 ml/min; Magnesium 2.1 mg/dl (1.7-2.4); Potassium 4.1 mmol/L (3.5-5.1)
[2023-10-08] MEDS: PLASMA-LYTE A 500 ML IV ONE (04:57)
[2023-10-08] MEDS ORDERED: Nursing to Pharmacy Communication SCH (09:00)
--- NOTE | 2023-10-08 09:04 | Critical Care Progress Note ---
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 To the ICU post cath, currently chest pain free and without need for vasoactive medications. Neuro - Hx of CVA, right CEA with stenting (2006) CAM ICU: Negative - No acute needs at this time Cardiac - STEMI with stents to [place] artery, CAD, HTN, HLD - S/P STEMI with GLORY to LAD - Residual CAD circ 70%, RCA small 70% mid segment disease- per cardiology address at later time - Elevated LVEDP - 40mg Lasix given in oil field laborer- follow - Continue DAPT therapy per cardiology- asa/ticagrelor - BB/ARB as hemodynamics permit- ECHO in AM - Atorvastatin 80mg - already initiated, Continue previous Zetia Respiratory - COPD emphysema, previous smoker --COPD with emphysema Gold class B On Spiriva along with as needed albuterol Was recently started on Advair couple of days ago because he was complaining of chest pain by primary care. 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 No complaints and is hopeful for eventual discharge today Physical Exam Physical Exam: General: Alert. nontoxic. Skin: Warm, dry, Head: Atraumatic Ears, nose, mouth and throat: airway patent Cardiovascular: Normal peripheral perfusion Respiratory: no respiratory distress Gastrointestinal: Non distended Musculoskeletal: No deformity Results & Data Results & Data Vital Signs (Past 12 Hours) Vital Signs Temp Pulse Resp BP Pulse Ox Pulse Ox O2 Del Method 10/08/23 08:00 79 26 H 95 10/08/23 08:00 102/68 10/08/23 07:30 80 21 93 10/08/23 07:30 94/68 L 10/08/23 07:00 83/59 L 10/08/23 07:00 71 26 H 95 10/08/23 06:30 80/56 L 10/08/23 06:30 72 15 95 10/08/23 06:00 90/66 L 10/08/23 06:00 70 21 94 10/08/23 05:30 71 21 96 10/08/23 05:30 99/56 L 10/08/23 05:10 104/74 10/08/23 05:10 75 9 L 95 10/08/23 05:00 104/74 10/08/23 05:00 73 24 95 10/08/23 04:55 68 15 95 10/08/23 04:55 89/57 L 10/08/23 04:30 93/67 L 10/08/23 04:30 70 24 94 10/08/23 04:16 90/53 L 10/08/23 04:16 77 25 H 95 10/08/23 04:15 79 25 H 94 10/08/23 04:15 99/67 L 10/08/23 04:00 68 16 94 10/08/23 04:00 72/48 L 10/08/23 04:00 36.9 C 10/08/23 03:30 70 16 94 10/08/23 03:30 90/59 L 10/08/23 03:02 78/52 L 10/08/23 03:02 69 14 94 10/08/23 03:00 80/53 L 10/08/23 03:00 74 15 95 10/08/23 02:30 90 16 93 10/08/23 02:00 81 20 92 10/08/23 02:00 106/65 10/08/23 01:30 79 23 93 10/08/23 01:30 96/66 L 10/08/23 01:17 87 21 93 10/08/23 01:17 90/63 L 10/08/23 01:17 98/63 L 10/08/23 01:00 82 17 98/63 L 93 10/08/23 01:00 92 Room Air 10/08/23 00:00 78 21 90/63 L 92 10/08/23 00:00 36.9 C 10/08/23 00:00 88 10/07/23 23:00 82 20 93 10/07/23 22:00 81 18 93 Coding Level of Care Code 78531 SUB INP/OBS CARE 08/15MIN Diagnoses Acute ST elevation myocardial infarction (STEMI) I21.3 Involved coronary artery: unspecified coronary artery History of stroke Z86.73 Impaired fasting glucose R73.01 Hypercholesteremia E78.00 Ureteral cancer C66.9 COPD (chronic obstructive pulmonary disease) J44.9 Coronary artery disease I25.10 (1) Acute ST elevation myocardial infarction (STEMI) Involved coronary artery: unspecified coronary artery Qualified Code(s): I21.3 - ST elevation (STEMI) myocardial infarction of unspecified site
--- NOTE | 2023-10-08 09:51 | Hospitalist Progress Note ---
Date of Service October 08, 2023 Assessment & Plan (1) Acute ST elevation myocardial infarction (STEMI): Plan: Mr. Rao is a 63-year-old male with past medical history significant for hyperlipidemia, COPD, TIA, hypertension, bilateral carotid stenosis, chronic idiopathic constipation, GERD, history of left ureteral cancer, osteoarthritis, history of poliomyelitis, history of tobacco use disorder presented with chest pain on 10/05 and found to have anterior STEMI now s/p LHC with GLORY to proximal LAD. Throughout the morning after the LHC, patient experienced chest pain and nausea. Interventional Cards suspected pericarditis and started colchicine. Yehuda tionally, given LHC on the morning of 10/05 revealed multivessel severe disease, patient scheduled for staged PCI for further intervention 10/06. #Post-cath chest pain, c/f pericarditis #Multivessel CAD s/p staged PCI with stent to distal LCx #Acute anterior STEMI s/p cardiac cath and found 100% proximal LAD occlusion s/p 2 drug-eluting stents 10/05 Also found to have about 70% late mid stenosis of the circumflex. RCA small nondominant 70% diffuse mid segment disease. Post cath echo with effusion and rub on exam Loaded with Brilinta, continue 90mg BID (covered by insurance, no copay reported) Continue ASA Started on colchicine 0.6mg BID Continue Lopressor 25 p.o. twice daily losartan 25 mg twice daily, Lipitor 80 mg p.o. 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 S/p BCG treatments Follow-up with urology and heme-onc #Constipation On MiraLAX daily #GERD PPI DVT prophylaxis SCDs for now Disposition ICU Full code Admission and Anticipated Discharge Date Admission Date: October 06, 2023 Results & Data Results & Data Vital Signs (Past 12 Hours) Vital Signs Temp Pulse Resp BP Pulse Ox Pulse Ox O2 Del Method 10/08/23 08:00 79 26 H 95 10/08/23 08:00 102/68 10/08/23 07:30 80 21 93 10/08/23 07:30 94/68 L 10/08/23 07:00 83/59 L 10/08/23 07:00 71 26 H 95 10/08/23 06:30 80/56 L 10/08/23 06:30 72 15 95 10/08/23 06:00 90/66 L 10/08/23 06:00 70 21 94 10/08/23 05:30 71 21 96 10/08/23 05:30 99/56 L 10/08/23 05:10 104/74 10/08/23 05:10 75 9 L 95 10/08/23 05:00 104/74 10/08/23 05:00 73 24 95 10/08/23 04:55 68 15 95 10/08/23 04:55 89/57 L 10/08/23 04:30 93/67 L 10/08/23 04:30 70 24 94 10/08/23 04:16 90/53 L 10/08/23 04:16 77 25 H 95 10/08/23 04:15 79 25 H 94 10/08/23 04:15 99/67 L 10/08/23 04:00 68 16 94 10/08/23 04:00 72/48 L 10/08/23 04:00 36.9 C 10/08/23 03:30 70 16 94 10/08/23 03:30 90/59 L 10/08/23 03:02 78/52 L 10/08/23 03:02 69 14 94 10/08/23 03:00 80/53 L 10/08/23 03:00 74 15 95 10/08/23 02:30 90 16 93 10/08/23 02:00 81 20 92 10/08/23 02:00 106/65 10/08/23 01:30 79 23 93 10/08/23 01:30 96/66 L 10/08/23 01:17 87 21 93 10/08/23 01:17 90/63 L 10/08/23 01:17 98/63 L 10/08/23 01:00 82 17 98/63 L 93 10/08/23 01:00 92 Room Air 10/08/23 00:00 78 21 90/63 L 92 10/08/23 00:00 36.9 C 10/08/23 00:00 88 10/07/23 23:00 82 20 93 10/07/23 22:00 81 18 93 (1) Acute ST elevation myocardial infarction (STEMI) Involved coronary artery: unspecified coronary artery Qualified Code(s): I21.3 - ST elevation (STEMI) myocardial infarction of unspecified site
--- NOTE | 2023-10-08 10:27 | Discharge Summary ---
Discharge Summary Date of Service October 08, 2023 Notes For Next Care Provider Medication Changes From Visit -Discontinue Losartan 100mg daily -Start Losartan 25mg daily -Discontinue Metoprolol Tartrate 50mg two times a day -Start Metoprolol XL 50 XL daily -Start colchicine 0.6mg two times a day (next dose this evening 10/07) -Start high dose aspirin 650 mg three times a day (next dose this evening 10/07) -Start Brilinta 90mg two times a day--this medication must be continued until otherwise directed by your Personnel Quality Assurance Auditor. Admission HPI Per Admitting Provider 63-year-old male with past medical history significant for hyperlipidemia, COPD, TIA, hypertension, bilateral carotid stenosis, chronic idiopathic constipation, GERD, history of left ureteral cancer, osteoarthritis, history of poliomyelitis, history of tobacco use disorder presents with chest pain and found to be ST elevated IN s/p cardiac catheter and 2 drug-eluting stents to proximal LAD. Patient states around 10 PM he was sleeping when he woke up with very severe chest pain in the center of the chest and radiating to both his arms, he was diaphoretic, nauseous and dizzy and also feeling very short of breath. EMS gave nitro which dropped his blood pressure but improved with fluids and also given fentanyl which improved his chest pain. Heart alert was called and patient is currently status postcardiac cath. Patient states that 2 to 3 days ago he had some mild chest discomfort but attributed to his lungs. Currently pain is resolved. Resting comfortably. Denies any headache. No runny nose or sore throat. No fevers. No nausea. No abdominal pain. Normal bowel and bladder movements. Uses stool softeners. Before this episode he was ambulating without any discomfort. Past medical history. As mentioned above Past surgical history. Carotid endarterectomy, colonoscopy, cystoscopy with insertion of stent on the left side. Cystourethroscopy with fulguration of the bladder tumor. Cystourethroscopy with biopsy. History uteroscope with pyeloscopy. Dental surgery. EGD. Right ankle fusion. Right glenohumeral joint hemiarthroplasty. Right carotid stent. Social history. . Quit smoking in 2022. Smoked 1 pack a day for 40 years. No alcohol currently. Smokes marijuana as per [employer]. Family history. Father had coronary disease. Throat cancer. Peptic ulcer disease. Mother had dementia. CAD. CABG. Brother had coronary disease. Brother had stroke. Sister had coronary disease. Maternal grandmother had brain cancer. Maternal grandfather had black lung. Paternal grandmother had cancer. Diabetes. Paternal grandfather had lung cancer. Admission Exam Per Admitting Provider General-Not in distress Head- atraumatic Eyes- EOMI, Neck- supple, no JVD, no carotid bruit Lungs- clear to auscultation no wheezing or crackles Heart- regular rate and rhythm; no murmur, no gallop. Abdomen- normal bowel sounds, soft, nontender, no distension. Extremities- no pretibial edema, no erythema seen. Left leg is somewhat thinner from polio.Right wrist cath site no drainage seen. Neuro- alert, oriented ; EOMI; no facial palsy; no dysarthria; moves extr emities. Skin- warm & dry Principal Dx & Hospital Course #1 = Principal Diagnosis (1) Acute ST elevation myocardial infarction (STEMI): Plan Mr. Rao is a 63-year-old male with past medical history significant for hyperlipidemia, COPD, TIA, hypertension, bilateral carotid stenosis, chronic idiopathic constipation, GERD, history of left ureteral cancer, osteoarthritis, history of poliomyelitis, history of tobacco use disorder presented with chest pain on 10/05 and found to have anterior STEMI now s/p LHC with GLORY to proximal LAD. Throughout the morning after the LHC, patient experienced chest pain and nausea. Interventional Cards suspected pericarditis and started colchicine. Add itionally, given LHC on the morning of 10/05 revealed multivessel severe disease and patient underwent additional stenting to dLCx. Patient reports feeling well on day of discharge. He reports bowel movement on 10/06. Additionally, he states he is ambulating without difficulty and denies any chest pain. Patient eager to return home and all questions answered at bedside. #Post-cath chest pain, c/f pericarditis #Multivessel CAD s/p staged PCI with stent to distal LCx #Acute anterior STEMI s/p cardiac cath and found 100% proximal LAD occlusion s/p 2 drug-eluting stents 10/05 Also found to have about 70% late mid stenosis of the circumflex. RCA small nondominant 70% diffuse mid segment disease. Post cath echo with effusion and rub on exam Loaded with Brilinta, continue 90mg BID (covered by insurance, no copay reported) Continue ASA Started on colchicine 0.6mg BID and high dose ASA 650mg TID -Will follow with Cards for repeat CRP and determine length of course with plans to resume ASA 81 there after Transitioned to Metoprolol 50mg XL Continue losartan 25 mg daily Lipitor 80 mg p.o. 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 S/p BCG treatments Follow-up with urology and heme-onc #Constipation On MiraLAX daily #GERD PPI Discharge Exam Constitutional WD/WN, vitals as above Respiratory normal respiratory effort, lungs clear to auscultation Cardiovascular RRR, no murmur, no edema Gastrointestinal (Abdomen) normal bowel sounds, soft, nontender, no hepatosplenomegaly Skin no rashes, warm and dry Neurologic PERRL, EOMI, accommodation nl, no face palsy, no dysarthria Updated Medication List Medication Instructions Recorded Confirmed Type aspirin 81 mg tablet,delayed 81 mg PO HS 04/09/18 10/06/23 History release acetaminophen 650 mg 1,300 mg PO Q12H PRN Pain 08/03/22 10/06/23 History tablet,extended release (Tylenol Arthritis Pain) atorvastatin 80 mg tablet 80 mg PO QPM 08/03/22 10/06/23 History ezetimibe 10 mg tablet (Zetia) 10 mg PO QAM #90 tabs 09/24/22 10/06/23 Rx albuterol sulfate 90 mcg/actuation 2 puff inhalation Q6H PRN 10/26/22 10/06/23 Rx aerosol inhaler Shortness Of Breath Or Wheezing #18 grams tiotropium bromide 2.5 2 puff inhalation QAM #4 grams 10/26/22 10/06/23 Rx mcg/actuation mist for inhalation (Spiriva Respimat) albuterol sulfate 2.5 mg/3 mL 2.5 mg inhalation DIRECTED PRN 10/06/23 10/06/23 History (0.083 %) solution for nebulization Shortness Of Breath Or Wheezing diclofenac sodium 1 % topical gel 2 g topical QID PRN Pain 10/06/23 10/06/23 History (Voltaren Arthritis Pain) epinephrine 0.3 mg/0.3 mL 0.3 mg IM DIRECTED PRN 10/06/23 10/06/23 History injection, auto-injector (EpiPen) anaphylaxis fluticasone 250 mcg-salmeterol 50 1 inh inhalation BID 10/06/23 10/06/23 History mcg/dose blistr powdr for inhalation (Advair Diskus) paroxetine HCl 10 mg tablet 10 mg PO QAM 10/06/23 10/06/23 History polyethylene glycol 3350 17 17 g PO DAILY 10/06/23 10/06/23 History gram/dose oral powder (Miralax) solifenacin 5 mg tablet 5 mg PO QAM 10/06/23 10/06/23 History ticagrelor 90 mg tablet (Brilinta) 90 mg PO BID 30 days #60 tabs 10/06/23 Rx tramadol 50 mg tablet 50 mg PO Q6H PRN Pain 10/06/23 10/06/23 History aspirin 325 mg capsule 650 mg (2 x 325 mg) PO TID #180 10/08/23 Rx caps colchicine 0.6 mg tablet (Colcrys) 0.6 mg PO BID #60 tabs 10/08/23 Rx losartan 25 mg tablet 25 mg PO DAILY #30 tabs 10/08/23 Rx metoprolol succinate 50 mg 50 mg PO DAILY #30 tabs 10/08/23 Rx tablet,extended release 24 hr omeprazole 20 mg capsule,delayed 20 mg PO QAM #30 caps 10/08/23 Rx release Hospital Stay Data Consultations 10/06/23 00:11 ED Decision to Admit Stat 10/06/23 01:04 Consult Bank [employer]ner Routine 10/06/23 01:37 Consult Cardiology Routine Procedures Performed Operation Date: 10/07/23 07:00 Actual Procedures p Drug Eluting Stent SGl Vessel - Swapnil Khan MD Diagnostic Imagining Performed 10/05/23 23:58 CL Cath Imgs for PACS use only Stat 10/07/23 06:40 CL Cath Imgs for PACS use only Stat Pending Results Patient Have Any Pending Studies at Discharge: No Discharge Instructions Given to Patient (Per Discharging Provider) You were admitted due to chest pain and found to have severe coronary artery disease (diseased vessels supplying the blood to your heart). 3 stents were placed. This requires superintendent marine oil terminal treatment with aspirin and a platelet sonia, Brilinta. Your course was complicated by irritation of the lining of your heart called pericarditis--this will be follow up as an outpatient with your heart doctor. In the interim, you will continue high dose aspirin 650mg three times a day, as well as a medicine colchicine, to help reduce the irritation and potential for scarring of your heart. Below are the medications changes that occurred and your planned regimen for discharge. Here are the following medication changes: For your cholesterol and blood pressure: -Continue Atorvastatin 80mg daily -Continue Zetia 10mg daily -Discontinue Losartan 100mg daily -Start Losartan 25mg daily -Discontinue Metoprolol Tartrate 50mg two times a day -Start Metoprolol XL 50 XL daily For your pericarditis (inflammation of the lining of your heart): -Start colchicine 0.6mg two times a day (next dose this evening 10/07) -Start high dose aspirin 650 mg three times a day (next dose this evening 10/07) This regimen will be continued based upon your follow up with Cardiology For your Heart Stents: -Start Brilinta 90mg two times a day--this medication must be continued until otherwise directed by your Personnel Quality Assurance Auditor. -As you are on high dose 650mg aspirin three times a day, you can resume your baby aspirin when your Personnel Quality Assurance Auditor feels it is time to reduce the high dosing above -Continue Omeprazole 20mg daily to protect your stomach lining Your A1C (marker for diabetes) was 6.4%, which is right on the cusp of being full diabetes mellitus. Lifestyle changes like exercise and diet are pivitotal. Please discuss with your PCP close monitoring and recheck of this level, as well as need for medications to help with your sugar levels--especially in the setting of your heart disease. Total Time Total Time Spent Total Time Spent (In Minutes): 45
--- NOTE | 2023-10-08 12:30 | Cardiology Progress Note ---
Date of Service October 08, 2023 Assessment & Plan (1) CAD (coronary artery disease): Plan: --Anterior STEMI -- PPCI to prox-mid LAD with 2 GLORY -- Staged PCI with additional GLORY to mid to distal circumflex 2. ICM - EF 40-45% - LAD wall motion abnormality --> 45-50% today 3. Hypertension 4. Dyslipidemia 5. Carotid artery disease post CEA/stenting 6. COPD/ILD 7. Ureteral cancer 8. Pulmonary hypertension 9. Post cardiac injury/acute pericarditis 10. PVCs/NSVT Chest pain resolved today. Relative hypotension overnight responded to IV fluids. Suspect related to volume, antihypertensives. LV function improved on repeat echo and no significant pericardial effusion. From a cardiac standpoint if blood pressures remain stable okay with discharge today. Continue DAPT with Ticagrelor, high-dose ASA -- Home on Toprol-XL 50 mg daily, losartan 25 mg daily -- Continue current atorvastatin, Zetia Continue current aspirin 650 mg 3 times daily and colchicine 0.6 mg twice daily At follow-up will repeat CRP. If improved likely reduce aspirin to 81 mg catalino ly, taper colchicine over months. Continue PPI Will arrange follow-up with me in 1 to 2 weeks. Further discussion cardiac rehab at that time. Admission and Anticipated Discharge Date Admission Date: October 06, 2023 Subjective Feeling well this morning. Chest pain resolved. Had multiple BMs overnight. Hypotensive overnight down to 70s to 80s. Received 250 bolus and BP improved. Repeat echo this morning shows improved LV functionEF 45 to 50%, apical akine sis. No LV thrombus. Trivial pericardial effusion Review of Systems Review of Systems: All systems reviewed & are unremarkable except as noted in HPI & below Physical Exam Physical Exam: General: Comfortable HEENT: Sclerae anicteric Lungs: Clear bilaterally Cardiac: Regular rate and rhythm Vascular: Right radial artery access site with no ecchymosis, hematoma. Distal pulse and sensation intact. Abdomen: Soft, nontender Extremities: Well perfused, no peripheral edema Psych: Alert orient x3 Results & Data Vital Signs (Past 12 Hours) Vital Signs Temp Pulse Resp BP Pulse Ox Pulse Ox O2 Del Method 10/08/23 10:00 118/74 10/08/23 09:44 91/72 L 10/08/23 09:00 103/70 10/08/23 08:00 79 26 H 95 10/08/23 08:00 102/68 10/08/23 07:30 80 21 93 10/08/23 07:30 94/68 L 10/08/23 07:00 83/59 L 10/08/23 07:00 71 26 H 95 10/08/23 06:30 80/56 L 10/08/23 06:30 72 15 95 10/08/23 06:00 90/66 L 10/08/23 06:00 70 21 94 10/08/23 05:30 71 21 96 10/08/23 05:30 99/56 L 10/08/23 05:10 104/74 10/08/23 05:10 75 9 L 95 10/08/23 05:00 104/74 10/08/23 05:00 73 24 95 10/08/23 04:55 68 15 95 10/08/23 04:55 89/57 L 10/08/23 04:30 93/67 L 10/08/23 04:30 70 24 94 10/08/23 04:16 90/53 L 10/08/23 04:16 77 25 H 95 10/08/23 04:15 79 25 H 94 10/08/23 04:15 99/67 L 10/08/23 04:00 68 16 94 10/08/23 04:00 72/48 L 10/08/23 04:00 98.4 F 10/08/23 03:30 70 16 94 10/08/23 03:30 90/59 L 10/08/23 03:02 78/52 L 10/08/23 03:02 69 14 94 10/08/23 03:00 80/53 L 10/08/23 03:00 74 15 95 10/08/23 02:30 90 16 93 10/08/23 02:00 81 20 92 10/08/23 02:00 106/65 10/08/23 01:30 79 23 93 10/08/23 01:30 96/66 L 10/08/23 01:17 87 21 93 10/08/23 01:17 90/63 L 10/08/23 01:17 98/63 L 10/08/23 01:00 82 17 98/63 L 93 10/08/23 01:00 92 Room Air PG Care Time/CCT Total # of Minutes Spent Total Time Spent with Patient: Total time spent is greater than 50% in coordination of care (as documented) at patient's floor/unit and/or counseling patient: Coding Level of Care Code 39702 SUB INP/OBS CARE 350MIN Diagnoses CAD (coronary artery disease) I25.10
--- NOTE | 2023-10-08 15:03 | Electrocardiogram Report ---
Test Reason : Blood Pressure : / mmHG Vent. Rate : 076 BPM Atrial Rate : 076 BPM P-R Int : 160 ms QRS Dur : 096 ms QT Int : 428 ms P-R-T Axes : 061 055 105 degrees QTc Int : 481 ms Normal sinus rhythm Possible Left atrial enlargement Anteroseptal infarct (cited on or before 05-OCT-2023) Inferior injury pattern ACUTE NV / STEMI Abnormal ECG When compared with ECG of 07-OCT-2023 08:21, Serial changes of evolving Anteroseptal infarct Present Confirmed by Swapnil Adams ([id number]) on 10/08/2023 3:02:25 PM Referred By: REFERRED SELF Confirmed By:Crispin Adams
--- NOTE | 2023-10-08 17:41 | XCELERA ---
[id number]
== END 2023-10-08 15:00 | disposition home or self-care (01) | DRG 322 ==
LOC: ED 23:51 → CC 10-06 01:07 → 1E 10-06 01:11

== ENCOUNTER 2024-01-02 10:32 | Observation (INO) ==
--- NOTE | 2024-01-02 11:26 | XRay Report ---
XR chest 1V portable HISTORY: 63 years-old Male Chest pain, nonspecific acute chest pain COMPARISON: 10/17/2023 TECHNIQUE: AP view of the chest FINDINGS: Cardiomediastinal and hilar clips are unchanged. Mild chronic interstitial coarsening. No pneumothora x, pleural effusion or airspace consolidation. Degenerative changes of the shoulders and spine. IMPRESSION: No acute process. ACT 112: Negative or not required by law. The above report was generated using voice recognition software. It may contain grammatical, syntax o r spelling errors. Electronically signed by: Herman Funes M.D. 01/02/2024 11:25 AM
--- NOTE | 2024-01-02 11:26 | Emergency Department Note ---
Impression & Plan Hypertension, Non-ST elevation AL (NSTEMI) ED Provider Note HISTORY OF PRESENT ILLNESS: Patient is a 63-year-old male presenting with hypertension. Patient reports he was at the cancer center getting a cancer treatment in which they flushed his bladder for his bladder mass, when his blood pressure was noted to be 205/110. They sent him to the emergency department for further evaluation. Patient reports that normally with the chemotherapy bladder flushes, he gets some lidocaine to help numb the bladder. However, for this treatment they did not do that. He reports he was in significant pain, "the pain was worse than when I had a heart attack." He denies any chest pain or shortness of breath. He reports that over the last few weeks his blood pressure in the morning has been elevated to the 180s, but he rechecks it after he takes his blood pressure medication and his systolic blood pressures in the 120s. He is unsure if he took his blood pressure medication this morning. He is on aspirin and Brilinta. He states he took his Brilinta today, but takes his aspirin in the evening so has not taken it yet. He does have a history of an AL and had 2 stents placed back in September 2023. He reports he has been doing well and feeling the best he has felt in a while. He denies any shortness of breath. Denies any lightheadedness or dizziness. He does report he has been having posterior headaches for the last 2 to 3 months, which is abnormal for him. Denies any fever. Denies any recent head injury or chiropractic manipulation of his neck. ROS: as above PHYSICAL EXAM: Constitutional: Patient appears in no acute distress. HENT: Head: Normocephalic and atraumatic. Eyes: EOMI, PERRL Mouth/Throat: Mucous membranes moist. Neck: Trachea midline. Neck supple. Cardiovascular: RRR, No murmurs, rubs or gallops. Intact distal pulses. Pulmonary/Chest: No respiratory distress. Breath sounds clear and equal bilaterally. No wheezes or rales. Abdominal: Abdomen soft, no tenderness, rebound or guarding. Musculoskeletal: No edema, tenderness or deformity noted. Skin: Warm and dry. No rash, erythema, pallor or cyanosis Psychiatric: Appropriate mood and affect for situation. Neurological: Alert and keenly responsive. CN II-XII grossly intact, moving all extremities equally and fully. MDM: - Vitals signs showed hypertension - History obtained via patient. History as above. - Chronic conditions affecting care: CAD (S/p PCI); HLD; HTN - Differential diagnoses include, but are not limited to: pain response; ACS; pneumonia; electrolyte abnormality; missed medication - Order placed for continuous cardiac monitoring. At this time, monitor showed rate of 70 bpm with normal sinus rhythm, per my interpretation. - External medical records reviewed. Cardiology visit was reviewed. Patient follows in their clinic after having a STEMI in September and having 2 drug-eluting stents placed to his proximal mid LAD. He also had 2 stents placed to his distal circumflex. - EKG interpreted by myself showed normal sinus rhythm. Rate 57 bpm. QT 400. Noted to have T wave inversions in aVL and V5. EKG does appear similar to patient's previous EKG in September. - Laboratory workup interpreted by myself showed normal WBC; stable electrolytes; hyperglycemia (glucose 147); elevated troponin (22.3) - CXR negative for pneumonia, per my interpretation - Repeat troponin elevated and rising to 25.8 - A third troponin was ordered and josie to 28.4 - Patient has no chest pain, so NSTEMI is likely more type II in nature. - CT head wo contrast negative for acute pathology. - Patient was complaining of some slight discomfort in his bladder region from his chemo treatment. He was given 50 mcg of IV fentanyl. On reassessment, his blood pressure did improve. His hypertension at the cancer center was likely secondary to his pain with his infusion. - Patient's family presented to bedside later. Discussed results with patient and his family. He is feeling well in the emergency department and feeling better after the fentanyl. He has no complaints of chest pain. However, he is moderate to high risk in terms of heart score given his recent catheterization and stent placement 3 months ago. Will admit to hospital service for further trending of troponins and further workup. - Discussion was had with family service caseworker about patient's case and need for admission - Hospitalist consulted for admission - Patient admitted to [facility] Hospitalist service for further evaluation and management. 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 Constipation Osteoarthritis of right hip Encounter for pre-operative examination Impaired fasting glucose (Chronic) Hgb A1C 6.0 in 08/2021 Carotid stenosis (Chronic) S/p CEA 2006 S/p right common carotid artery stent placement 2019 due to recurrent MARVIN stenosis Cervical facet syndrome (Chronic) Cervicalgia (Chronic) Radiculitis of left cervical region (Chronic) Hypercholesteremia (Chronic) Chest pain (Acute) Cough (Acute) History of right common carotid artery stent placement (05/20/19) Dr Bullock, [facility] [place] Left rotator cuff tear Left shoulder pain Depression CMC arthritis Right wrist tendinitis Tendinitis of left rotator cuff Ankle pain COPD (chronic obstructive pulmonary disease) Tobacco dependence Lumbar stenosis Ex-smoker COPD with emphysema Chronic bronchitis Marijuana smoker Exertional dyspnea Osteoarthritis of metacarpophalangeal (MCP) joint Tick bite Subacromial bursitis Carotid stenosis Restrictive lung disease NSAID long-term use ILD (interstitial lung disease) COVID-19 Coronary artery disease Osteoarthritis of metacarpophalangeal (MCP) joint CMC arthritis, thumb, degenerative Right upper quadrant abdominal pain Right lower quadrant pain Renal cyst Nephrolithiasis Ureter filling defect TIA (transient ischemic attack) (01/18/14) Age 47 > then carotid stent placed Hypertension (Chronic) Kidney disease (Chronic) no specialist Polio (Chronic) 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 Hip pain (Chronic) Tobacco abuse (Chronic) GERD (gastroesophageal reflux disease) (Chronic) Lumbago (Chronic) Facet syndrome, lumbar (Chronic) Osteoarthritis involving multiple joints on both sides of body (Chronic) Medical History Acute ST elevation myocardial infarction (STEMI) Kidney stones Hyperlipidemia Hypertension History of COVID-09 Apr 2022 > mild COPD (chronic obstructive pulmonary disease) rare res inh use Carotid stenosis S/p CEA 2006 S/p right common carotid artery stent placement 2019 due to recurrent MARVIN stenosis Impaired fasting glucose Hgb A1C 6.0 in 08/2021 Peptic ulcer Facet syndrome, lumbar GERD (gastroesophageal reflux disease) TIA (transient ischemic attack) (01/18/14) Age 47 > then carotid stent placed Polio 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 Kidney disease no specialist Surgical History History of common carotid artery stent placement April 2019 due to recurrent MARVIN stenosis History of colonoscopy Moh[place] teeth extracted H/O carotid endarterectomy (11/08/06) History of shoulder surgery right Family History Father Stroke syndrome Laryngeal cancer Peptic ulcer Mother Myocardial infarction Sister Myocardial infarction Cerebral arterial aneurysm Brother Hypertension Unknown Cardiovascular disorder Cerebral arterial aneurysm Grandfather Skin cancer Social History Smoking Status: Former smoker Tobacco Type: Cigarettes Age Started Using Tobacco: 15; packs per day: 1; Cigarettes Per Day: 20; Second Hand Exposure: Yes; Do You Dip or Chew Tobacco: No; Hx Alcohol Use: No Hx Substance Use: Yes Substance Use Type Other:: occasional > advised Preferred Language: Belgian Communication Ability: Effective Furniture Maker Required: No Beliefs That Will Affect Care: None marital status: Current Living Situation: Spouse current occupational status: disabled Feels Safe at Home: Yes Assistive Devices: None Allergies Allergies Allergy/AdvReac Type Severity Reaction Status Date / Time rosuvastatin [From Crestor] AdvReac Intermediate Headache Verified 11/05/23 16:14 varenicline [From Chantix] AdvReac Intermediate nightmares Verified 11/05/23 16:14 bee venom Allergy Severe Swelling Uncoded 11/05/23 16:14 of Lip/Tongue/Throat Home Meds Home Medications Medication Instructions Recorded Confirmed acetaminophen 650 mg 1,300 mg PO Q12H PRN Pain 08/03/22 01/02/24 tablet,extended release (Tylenol Arthritis Pain) atorvastatin 80 mg tablet 80 mg PO QPM 08/03/22 01/02/24 diclofenac sodium 1 % topical gel 2 g topical QID PRN Pain 10/06/23 01/02/24 (Voltaren Arthritis Pain) epinephrine 0.3 mg/0.3 mL 0.3 mg IM DIRECTED PRN 10/06/23 01/02/24 injection, auto-injector (EpiPen) anaphylaxis fluticasone 250 mcg-salmeterol 50 1 inh inhalation BID 10/06/23 01/02/24 mcg/dose blistr powdr for inhalation (Advair Diskus) paroxetine HCl 10 mg tablet 10 mg PO QAM 10/06/23 01/02/24 polyethylene glycol 3350 17 17 g PO DAILY 10/06/23 01/02/24 gram/dose oral powder (Miralax) tramadol 50 mg tablet 50 mg PO Q6H PRN Pain 10/06/23 01/02/24 Previous Rx's Medication Instructions Recorded ezetimibe 10 mg tablet (Zetia) 10 mg PO QAM #90 tabs 09/24/22 albuterol sulfate 90 mcg/actuation 2 puff inhalation Q6H PRN 10/26/22 aerosol inhaler Shortness Of Breath Or Wheezing #18 grams losartan 25 mg tablet 25 mg PO DAILY #30 tabs 10/08/23 omeprazole 20 mg capsule,delayed 20 mg PO QAM #30 caps 10/08/23 release aspirin 81 mg tablet,delayed 81 mg PO DAILY #30 tabs 10/24/23 release (Adult Aspirin Regimen) metoprolol succinate 50 mg 50 mg PO DAILY #30 tabs 10/24/23 tablet,extended release 24 hr colchicine 0.6 mg tablet (Colcrys) 0.6 mg PO DAILY #90 tabs 11/01/23 ticagrelor 90 mg tablet (Brilinta) 90 mg PO BID #90 tabs 12/23/23 tiotropium bromide 2.5 2 puff inhalation QAM #4 grams 12/27/23 mcg/actuation mist for inhalation (Spiriva Respimat) Results & Data (ED) Vital Signs Vital Signs - 24 hr 01/02/24 10:39 01/02/24 11:02 01/02/24 11:02 Temperature 36.6 C Temperature Source Temporal Artery Scan Pulse Rate 66 Pulse Rate from SpO2 Sensor Respiratory Rate 16 Respiratory Effort / Characteristics Non-Labored Respiratory Depth Normal Blood Pressure 186/111 H Blood Pressure Mean 136 Pulse Oximetry 96 95 95 Oxygen Delivery Method Room Air Room Air Room Air Oxygen Flow Rate 0 Sepsis Recent Fever Within 48 Hours No Sepsis New/Unexplained Change in Mental Status No Sepsis Action Taken by Nursing No Action Required 01/02/24 11:10 01/02/24 11:12 01/02/24 11:33 Temperature Temperature Source Pulse Rate 62 62 60 Pulse Rate from SpO2 Sensor 63 60 Respiratory Rate 20 20 Respiratory Effort / Characteristics Respiratory Depth Blood Pressure 165/103 H Blood Pressure Mean 123 Pulse Oximetry 97 95 Oxygen Delivery Method Room Air Oxygen Flow Rate Sepsis Recent Fever Within 48 Hours Sepsis New/Unexplained Change in Mental Status Sepsis Action Taken by Nursing 01/02/24 12:00 01/02/24 12:00 01/02/24 15:10 Temperature Temperature Source Pulse Rate 63 69 Pulse Rate from SpO2 Sensor 61 Respiratory Rate 19 Respiratory Effort / Characteristics Respiratory Depth Blood Pressure 159/98 H Blood Pressure Mean 120 Pulse Oximetry 94 Oxygen Delivery Method Room Air Oxygen Flow Rate Sepsis Recent Fever Within 48 Hours Sepsis New/Unexplained Change in Mental Status Sepsis Action Taken by Nursing Laboratory Data 01/02/24 10:59 01/02/24 10:59 Lab Results 01/02/24 01/02/24 01/02/24 Range/Units 10:59 12:55 14:23 WBC 8.49 (4.8-10.8) K/ul RBC 4.87 (4.70-6.10) M/uL Hgb 15.5 (14.0-18.0) g/dl Hct 46.6 (42.0-52.0) % MCV 95.7 (80.0-100.0) fL MCH 31.8 (25.0-34.0) pg MCHC 33.3 (32.0-36.0) g/dL RDW Std Deviation 50.0 H (36.4-46.3) fL RDW Coeff of Karen 14.4 (11.5-14.5) % Plt Count 148 (130-400) K/uL MPV 11.0 (9.4-12.4) fL Immature Gran % (Auto) 1.1 % Neut % (Auto) 67.9 % Lymph % (Auto) 21.9 % Glades % (Auto) 7.2 % Eos % (Auto) 1.3 % Baso % (Auto) 0.6 % Neut # (Auto) 5.77 (1.40-6.50) K/uL Lymph # (Auto) 1.86 (1.20-3.40) K/uL Glades # (Auto) 0.61 H (0.11-0.59) K/uL Eos # (Auto) 0.11 (0.00-0.50) K/uL Baso # (Auto) 0.05 (0.00-0.20) K/uL Immature Gran # (Auto) 0.09 (0.01-0.20) K/uL PT 10.4 (9.0-12.0) Seconds INR 1.0 (0.9-1.1) APTT 26 (21-31) Seconds PTT Ratio 1.0 Sodium 138 (136-145) mmol/L Potassium 3.8 (3.5-5.1) mmol/L Chloride 107 (98-107) mmol/L Carbon Dioxide 25 (21-32) mmol/L Anion Gap 6 (3-11) BUN 14 (6-23) mg/dl Creatinine 0.77 (0.6-1.4) mg/dl Est Cr Clr Drug Dosing 95.6 ml/min Est GFR ( Amer) 110.4 ml/min Est GFR (Non-Af Amer) 95.2 ml/min BUN/Creatinine Ratio 18.2 (10-20) Glucose 147 H (70-99(Fasting)) mg/dl Calcium 9.1 (8.6-10.3) mg/dl Total Bilirubin 0.5 (0.2-1.0) mg/dl AST 16 (13-39) U/L ALT 17 (7-52) U/L Alkaline Phosphatase 78 (34-104) U/L Troponin I High Sens 22.3 H 25.8 H 28.4 H (0-20) pg/ml Total Protein 6.8 (6.0-8.3) gm/dl Albumin 4.0 (3.4-5.0) gm/dl Globulin 2.8 (2.5-4.0) gm/dl Albumin/Globulin Ratio 1.4 (0.9-2) Administered Medications Discontinued Medications Fentanyl Citrate (Fentanyl Citrate Pf 100 Mcg/2 Ml Vial) 50 mcg IV NOW STA Stop: 01/02/24 11:24 Last Admin: 01/02/24 11:45 Dose: 50 mcg Documented By: BRIGIDA Imaging Data Radiologist's Impression: Chest X-Ray 01/02/24 10:42 XR chest 1V portable HISTORY: 63 years-old Male Chest pain, nonspecific acute chest pain COMPARISON: 10/17/2023 TECHNIQUE: AP view of the chest FINDINGS: Cardiomediastinal and hilar clips are unchanged. Mild chronic interstitial coarsening. No pneumothorax, pleural effusion or airspace consolidation. Degenerative changes of the shoulders and spine. IMPRESSION: No acute process. ACT 112: Negative or not required by law. The above report was generated using voice recognition software. It may contain grammatical, syntax or spelling errors. Electronically signed by: Herman Funes M.D. 01/02/2024 11:[address] 01/02/24 12:45 CT head/brain wo con CLINICAL HISTORY: recurrent headaches; hx of CA Technique: Contiguous axial CT images of the head were acquired from the base of the skull to the vertex without intravenous contrast administration. Images were viewed in brain, subdural and bone windows. Automated dose lowering techniques and/or adjustment according to patient size were utilized for this exam. Comparison: Comparison is made to CT head 01/18/2014 Findings: The ventricles, basal cisterns, and cerebral sulci are normal. There is no acute intracranial hemorrhage or evidence of acute territorial infarction. Neither mass effect, shift of the midline structures, nor abnormal extra-axial fluid collections are shown. Imaged portions of the paranasal sinuses and mastoid air cells are clear. The orbits appear normal. There are no acute fractures of the calvaria or scalp swelling. Impression: No acute intracranial hemorrhage, no evidence of acute territorial infarction or other acute intracranial disease process. No vasogenic edema is seen to suggest metastatic disease. ACT 112: Negative or not required by law. Electronically signed by: Fabian Ortega M.D. 01/02/2024 1:03 PM Discharge Plan Visit Data Chief Complaint: Hypertension Stated Complaint: HIGH BP ED Provider: Antonieta Velasco Discharge Problem: Hypertension, Non-ST elevation AL (NSTEMI) Forms Stand Alone Forms: [facility] Prescriptions Prescriptions: No Action ezetimibe [Zetia] 10 mg tablet 10 mg PO QAM Qty: 90 2RF metoprolol succinate 50 mg tablet extended release 24 hr 50 mg PO DAILY Qty: 30 3RF colchicine [Colcrys] 0.6 mg tablet 0.6 mg PO DAILY Qty: 90 0RF Brilinta 90 mg tablet 90 mg PO BID Qty: 90 3RF Spiriva Respimat 2.5 mcg/actuation mist 2 puff inhalation QAM Qty: 4 0RF albuterol sulfate 90 mcg/actuation HFA aerosol inhaler 2 puff inhalation Q6H PRN (Reason: Shortness Of Breath Or Wheezing) Qty: 18 3RF aspirin [Adult Aspirin Regimen] 81 mg tablet,delayed release (DR/EC) 81 mg PO DAILY Qty: 30 11RF atorvastatin 80 mg tablet 80 mg PO QPM acetaminophen [Tylenol Arthritis Pain] 650 mg tablet extended release 1,300 mg PO Q12H PRN (Reason: Pain) fluticasone propion-salmeterol [Advair Diskus] 250-50 mcg/dose Blister With Device 1 inh INHALATION BID paroxetine HCl 10 mg tablet 10 mg PO QAM tramadol 50 mg tablet 50 mg PO Q6H PRN (Reason: Pain) polyethylene glycol 3350 [Miralax] 17 gram/dose Powder 17 g PO DAILY epinephrine [EpiPen] 0.3 mg/0.3 mL auto-injector 0.3 mg IM DIRECTED PRN (Reason: anaphylaxis) Rx Instructions: Pt states this is close to being diclofenac sodium [Voltaren Arthritis Pain] 1 % gel 2 g topical QID PRN (Reason: Pain) Rx Instructions: apply to the hands q 6 hrs as needed for pain losartan 25 mg Tablet 25 mg PO DAILY Qty: 30 0RF omeprazole 20 mg capsule,delayed release(DR/EC) 20 mg PO QAM Qty: 30 0RF Referrals Referrals: PCP,NO [Physician] -
[2024-01-02 11:44] LABS: Basophils # (auto) 0.05 K/uL (0.00-0.20); Basophils % (auto) 0.6 %; Eosinophils # (auto) 0.11 K/uL (0.00-0.50); Eosinophils % (auto) 1.3 %; Hematocrit (blood only) 46.6 % (42.0-52.0); Hemoglobin 15.5 g/dl (14.0-18.0); Immature Granulocytes # (auto) 0.09 K/uL (0.01-0.20); Immature Granulocytes % (auto) 1.1 %; Lymphocytes # (auto) 1.86 K/uL (1.20-3.40); Lymphocytes % (auto) 21.9 %; Mean Corpuscular Hemoglobin 31.8 pg (25.0-34.0); Mean Corpuscular Hgb Conc 33.3 g/dL (32.0-36.0); Mean Corpuscular Volume 95.7 fL (80.0-100.0); Monocytes # (auto) 0.61 K/uL (0.11-0.59); Monocytes % (auto) 7.2 %; Neutrophils # (auto) 5.77 K/uL (1.40-6.50); Neutrophils % (auto) 67.9 %; Platelet Count 148 K/uL (130-400); RDW Coefficient of Variation 14.4 % (11.5-14.5); Red Blood Count 4.87 M/uL (4.70-6.10); White Blood Count 8.49 K/ul (4.8-10.8)
[2024-01-02] MEDS: fentaNYL citrate PF 100 MCG/2 ML VIAL IV STA (11:45)
[2024-01-02 12:08] LABS: Albumin Globulin Ratio 1.4 (0.9-2); BUN Creatinine Ratio 18.2 (10-20); Bilirubin,Total 0.5 mg/dl (0.2-1.0); Calcium 9.1 mg/dl (8.6-10.3); Creatinine Clr Calc Pharmacy 95.6 ml/min; Est GFR (African American) 110.4 ml/min; Est GFR (Non-African American) 95.2 ml/min; Globulin 2.8 gm/dl (2.5-4.0); Potassium 3.8 mmol/L (3.5-5.1); Total Protein 6.8 gm/dl (6.0-8.3)
[2024-01-02 12:10] LABS: Partial Thromboplastin Time 26 Seconds (21-31); Prothrombin Time 10.4 Seconds (9.0-12.0)
[2024-01-02 12:14] LABS: Troponin I High Sensitivity 22.3 pg/ml (0-20)
--- NOTE | 2024-01-02 13:04 | CT Scan Report ---
CT head/brain wo con CLINICAL HISTORY: recurrent headaches; hx of CA Technique: Contiguous axial CT images of the head were acquired from the base of the skull to the ankit michelle without intravenous contrast administration. Images were viewed in brain, subdural and [facility]. Automated dose lowering techniques and/or adjustment according to patient size were utilized for this exam. Comparison: Comparison is made to CT head 01/18/2014 Findings: The ventricles, basal cisterns, and cerebral sulci are normal. There is no acute intracranial hemorrh age or evidence of acute territorial infarction. Neither mass effect, shift of the midline structures , nor abnormal extra-axial fluid collections are shown. Imaged portions of the paranasal sinuses and mastoid air cells are clear. The orbits appear normal. There are no acute fractures of the calvaria or scalp swelling. Impression: No acute intracranial hemorrhage, no evidence of acute territorial infarction or other acute intracra nial disease process. No vasogenic edema is seen to suggest metastatic disease. ACT 112: Negative or not required by law. Electronically signed by: Fabian Ortega M.D. 01/02/2024 1:03 PM
--- NOTE | 2024-01-02 15:27 | History & Physical Report ---
Date of Service January 02, 2024 Assessment & Plan (1) Hypertensive urgency: (2) Mass of bladder: (3) History of ST elevation myocardial infarction (STEMI): (4) CAD (coronary artery disease): (5) COPD (chronic obstructive pulmonary disease): Plan Paul Wright is a 63 y/o M with PMHx of STEMI s/p GLORY x 2 to LAD [September 2023], hyperlipidemia, HTN, COPD, hx of TIA, bilateral carotid stenosis, chronic idiopathic constipation, GERD, history of left ureteral cancer, osteoarthritis, history of poliomyelitis, history of tobacco use disorder, DDD and other problems listed below who presented to the ED for evaluation of elevated BP via referral from cancer center. Patient was receiving intrabladder BCG therapy for a bladder mass when his BP was noted to be 205/110 by staff and he was ultimately sent here. Hypertensive urgency Hx of Hypertension (HTN) Rule-out ACS -BP 159/98 on admission -Trop 28.4 on admission -EKG shows possible inferior injury pattern per my interpretation -Cardiology consulted --> Spoke w/ Dr. Adams, states EKG changes consistent w/ recent STEMI -Will repeat EKG tonight and tomorrow AM -Trend troponin x 2 -Repeat echo -EKG as needed w/ chest pain -Took BP meds this morning [employer] -Can continue [employer]IN[employer] RO[employer]ER BP meds tomorrow AM -PRN 5mg IV hydralazine Q4H for SBP>165 -BP checks Q2H -HH, low sodium diet -NPO at midnight pending any cardiologic intervention -Continuous cardiac, pulse ox monitoring Mass of bladder -Currently undergoing maintenance BCG x 3 weeks -Follows w/ [facility] (Dr. Adan) -No urinary concerns at this time -Monitor I&Os given hx CAD Hyperlipidemia History of STEMI --> Anterior STEMI s/p cardiac cath w/ placement of 2 GLORY in LAD in September 2023. -Continue aspirin, Brilinta -Continue atorvastatin, ezetimibe -Continuous cardiac, pulse ox monitoring COPD -Continue Spiriva, PRN albuterol inhaler Other chronic conditions: Hx of poliomyelitis, GERD, chronic idiopathic constipation, anxiety --> Can continue [employer]IN[employer] RO[employer]ER medication regimens for these conditions while he is admitted. * Recommended that he follows up w/ PCP upon discharge to discuss potential for increasing SSRI dosing. Anxiety has been worse lately, family and patient thinks he needs to change his regimen. DVT Prophylaxis: SCDs Code Status: Full Code PCP: JACOB Lee Dispo: Admit to Med/Surg w/ Telemetry Patient seen in collaboration with Dr. Echeverria. Please see addendum. I spent a total of 75 minutes coordinating, documenting, and providing care for this patient excluding time spent in the performance of separately billed services. This included personally reviewing all current laboratories and imaging studies, medical reconciliation, outpatient chart review and discussion with specialists. This chart was completed in part utilizing Speech Voice Recognition Software. Grammatical errors, random word insertions, pronoun errors, and incomplete sentences are an occasional consequence of this system due to software limitations, ambient noise, and hardware issues. Any formal questions or concerns about the content, text, or information contained within the body of this dictation should be directly addressed to the provider for clarification. History of Present Illness Chief Complaint: HTN during intrabladder treatment session Primary Care Provider: JACOB Lee Paul Wright is a 63 y/o M with PMHx of STEMI s/p GLORY x 2 to LAD [September 2023], hyperlipidemia, HTN, COPD, hx of TIA, bilateral carotid stenosis, chronic idiopathic constipation, GERD, history of left ureteral cancer, osteoarthritis, history of poliomyelitis, history of tobacco use disorder, DDD and other problems listed below who presented to the ED for evaluation of elevated BP via referral from cancer center. History obtained from the patient, /daughter in room and associated chart review. Patient seen with Dr. Echeverria. Patient states he was at the cancer center receiving intrabladder BCG therapy for a bladder mass when his blood pressure was noted to be 205/100. He is currently undergoing maintenance BCG x 3 weeks, today being his first session. He mentions that he typically receives some lidocaine to help with the pain associated with the procedure (was previously treated for ureteral CA w/ similar treatments), however did not receive any lidocaine prior to his treatment today. He reports he was in excruciating pain throughout the procedure. Treatment typically last 2 hours, but he was only able to withstand treatment for an hour before his blood pressure started to rise. Denies any chest pain or SOB. Takes aspirin and Brilinta as prescribed, has not missed a dose per patient. Took his blood pressure medications this morning. states his BP was high even before his treatment, known hx of "white coat syndrome." He was pretty nervous to undergo treatment today. Had STEMI in September and is now s/p cardiac cath w/ 2 GLORY placed in the LAD artery. Has since been following w/ Dr. Khan. Was on colchicine in the past, no longer taking it. No fever, sore throat or cough. No dysuria. Increase in appetite recently. No bowel habit changes. Has been having headaches in the posterior region of his head intermittently for the past year. Smoked for 40 years, quit ~2 years ago. No alcohol use. Uses marijuana, 2 or 3 puffs/day to help w/ chronic arthritis. Eats some salty foods regularly. [place] shaky before his treatment, got worse during the treatment. Hx of polio, chronic atrophy of muscles in L leg. Has some weakness, pain at baseline - no acute changes. Allergies Allergy/AdvReac Type Severity Reaction Status Date / Time rosuvastatin [From Crestor] AdvReac Intermediate Headache Verified 11/05/23 16:14 varenicline [From Chantix] AdvReac Intermediate nightmares Verified 11/05/23 16:14 bee venom Allergy Severe Swelling Uncoded 11/05/23 16:14 of Lip/Tongue/Throat Home Medications Medication Instructions Recorded Confirmed Type acetaminophen 650 mg 1,300 mg PO Q12H PRN Pain 08/03/22 01/02/24 History tablet,extended release (Tylenol Arthritis Pain) atorvastatin 80 mg tablet 80 mg PO QPM 08/03/22 01/02/24 History ezetimibe 10 mg tablet (Zetia) 10 mg PO QAM #90 tabs 09/24/22 01/02/24 Rx albuterol sulfate 90 mcg/actuation 2 puff inhalation Q6H PRN 10/26/22 01/02/24 Rx aerosol inhaler Shortness Of Breath Or Wheezing #18 grams diclofenac sodium 1 % topical gel 2 g topical QID PRN Pain 10/06/23 01/02/24 History (Voltaren Arthritis Pain) epinephrine 0.3 mg/0.3 mL 0.3 mg IM DIRECTED PRN 10/06/23 01/02/24 History injection, auto-injector (EpiPen) Anaphylaxis paroxetine HCl 10 mg tablet 10 mg PO QAM 10/06/23 01/02/24 History polyethylene glycol 3350 17 17 g PO DAILY 10/06/23 01/02/24 History gram/dose oral powder (Miralax) tramadol 50 mg tablet 50 mg PO Q6H PRN Pain 10/06/23 01/02/24 History omeprazole 20 mg capsule,delayed 20 mg PO QAM #30 caps 10/08/23 01/02/24 Rx release aspirin 81 mg tablet,delayed 81 mg PO DAILY #30 tabs 10/24/23 01/02/24 Rx release (Adult Aspirin Regimen) ticagrelor 90 mg tablet (Brilinta) 90 mg PO BID #90 tabs 12/23/23 01/02/24 Rx tiotropium bromide 2.5 2 puff inhalation QAM #4 grams 12/27/23 01/02/24 Rx mcg/actuation mist for inhalation (Spiriva Respimat) losartan 25 mg tablet 25 mg PO QAM 01/02/24 01/02/24 History metoprolol succinate 50 mg 50 mg PO QAM 01/02/24 01/02/24 History tablet,extended release 24 hr Past Med/Surg History Problem List History of ST elevation myocardial infarction (STEMI) Hypertensive urgency Mass of bladder Non-ST elevation [place] (NSTEMI) (Acute) Hypertension (Acute) Trochanteric bursitis, right hip CAD (coronary artery disease) History of stroke (Acute) Nausea (Acute) Chest pain (Acute) 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 Constipation Osteoarthritis of right hip Encounter for pre-operative examination Impaired fasting glucose (Chronic) Hgb A1C 6.0 in 08/2021 Carotid stenosis (Chronic) S/p CEA 2006 S/p right common carotid artery stent placement 2019 due to recurrent MARVIN stenosis Cervical facet syndrome (Chronic) Cervicalgia (Chronic) Radiculitis of left cervical region (Chronic) Hypercholesteremia (Chronic) Chest pain (Acute) Cough (Acute) History of right common carotid artery stent placement (05/20/19) Dr Bullock, [facility] [place] Left rotator cuff tear Left shoulder pain Depression CMC arthritis Right wrist tendinitis Tendinitis of left rotator cuff Ankle pain COPD (chronic obstructive pulmonary disease) Tobacco dependence Lumbar stenosis Ex-smoker COPD with emphysema Chronic bronchitis Marijuana smoker Exertional dyspnea Osteoarthritis of metacarpophalangeal (MCP) joint Tick bite Subacromial bursitis Carotid stenosis Restrictive lung disease NSAID long-term use ILD (interstitial lung disease) COVID-19 Coronary artery disease Osteoarthritis of metacarpophalangeal (MCP) joint CMC arthritis, thumb, degenerative Right upper quadrant abdominal pain Right lower quadrant pain Renal cyst Nephrolithiasis Ureter filling defect TIA (transient ischemic attack) (01/18/14) Age 47 > then carotid stent placed Hypertension (Chronic) Kidney disease (Chronic) no specialist Polio (Chronic) 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 Hip pain (Chronic) Tobacco abuse (Chronic) GERD (gastroesophageal reflux disease) (Chronic) Lumbago (Chronic) Facet syndrome, lumbar (Chronic) Osteoarthritis involving multiple joints on both sides of body (Chronic) Medical History History of placement of stent in LAD coronary artery Acute ST elevation myocardial infarction (STEMI) Kidney stones Hyperlipidemia Hypertension History of COVID-19 Mar 2022 > mild COPD (chronic obstructive pulmonary disease) rare res inh use Peptic ulcer Surgical History S/P cardiac catheterization History of common carotid artery stent placement April 2019 due to recurrent MARVIN stenosis History of colonoscopy [place] teeth extracted H/O carotid endarterectomy (11/08/06) History of shoulder surgery right Family History Father Stroke syndrome Laryngeal cancer Peptic ulcer Mother Myocardial infarction Sister Myocardial infarction Cerebral arterial aneurysm Brother Hypertension Unknown Cardiovascular disorder Cerebral arterial aneurysm Grandfather Skin cancer Social History Smoking Status: Former smoker Tobacco Type: Cigarettes Age Started Using Tobacco: 15; packs per day: 1; Cigarettes Per Day: 20; Second Hand Exposure: Yes; Do You Dip or Chew Tobacco: No; Hx Alcohol Use: No Hx Substance Use: Yes Substance Use Type Other:: occasional > advised Preferred Language: Syriac Communication Ability: Effective Chip Person Required: No Beliefs That Will Affect Care: None marital status: Current Living Situation: Spouse current occupational status: disabled Feels Safe at Home: Yes Assistive Devices: None Review of Systems Review of Systems: At least ten systems reviewed and negative, except as noted in the HPI. Physical Exam Physical Exam: Please refer to Dr. Echeverria's addendum for physical examination findings, as he himself performed the physical examination of the patient. Results & Data Results & Data Vital Signs (Past 12 Hours) Vital Signs Temp Pulse Resp BP Pulse Ox O2 Del Method O2 Flow Rate 01/02/24 15:10 69 01/02/24 12:00 159/98 H 01/02/24 12:00 63 19 94 Room Air 01/02/24 11:33 60 20 165/103 H 95 Room Air 01/02/24 11:12 62 20 97 01/02/24 11:10 62 01/02/24 11:02 95 Room Air 01/02/24 11:02 95 Room Air 0 01/02/24 10:39 36.6 C 66 16 186/111 H 96 Room Air Laboratory Results Short CBC 01/02/24 Range/Units 10:59 WBC 8.49 (4.8-10.8) K/ul Hgb 15.5 (14.0-18.0) g/dl Hct 46.6 (42.0-52.0) % Plt Count 148 (130-400) K/uL BMP 01/02/24 10:59 Sodium 138 Potassium 3.8 Chloride 107 Carbon Dioxide 25 BUN 14 Creatinine 0.77 Glucose 147 H Calcium 9.1 Liver Function 01/02/24 Range/Units 10:59 Total Bilirubin 0.5 (0.2-1.0) mg/dl AST 16 (13-39) U/L ALT 17 (7-52) U/L Alkaline Phosphatase 78 (34-104) U/L Albumin 4.0 (3.4-5.0) gm/dl Diagnostic Findings Chest X-Ray 01/02/24 10:42 XR chest 1V portable HISTORY: 63 years-old Male Chest pain, nonspecific acute chest pain COMPARISON: 10/17/2023 TECHNIQUE: AP view of the chest FINDINGS: Cardiomediastinal and hilar clips are unchanged. Mild chronic interstitial coarsening. No pneumothorax, pleural effusion or airspace consolidation. Degenerative changes of the shoulders and spine. IMPRESSION: No acute process. ACT 112: Negative or not required by law. The above report was generated using voice recognition software. It may contain grammatical, syntax or spelling errors. Electronically signed by: Herman Funes M.D. 01/02/2024 11:[address] 01/02/24 12:45 CT head/brain wo con CLINICAL HISTORY: recurrent headaches; hx of CA Technique: Contiguous axial CT images of the head were acquired from the base of the skull to the vertex without intravenous contrast administration. Images were viewed in brain, subdural and bone windows. Automated dose lowering techniques and/or adjustment according to patient size were utilized for this exam. Comparison: Comparison is made to CT head 01/18/2014 Findings: The ventricles, basal cisterns, and cerebral sulci are normal. There is no acute intracranial hemorrhage or evidence of acute territorial infarction. Neither mass effect, shift of the midline structures, nor abnormal extra-axial fluid collections are shown. Imaged portions of the paranasal sinuses and mastoid air cells are clear. The orbits appear normal. There are no acute fractures of the calvaria or scalp swelling. Impression: No acute intracranial hemorrhage, no evidence of acute territorial infarction or other acute intracranial disease process. No vasogenic edema is seen to suggest metastatic disease. ACT 112: Negative or not required by law. Electronically signed by: Fabian Ortega M.D. 01/02/2024 1:03 PM Medications Administered Discontinued Medications Fentanyl Citrate (Fentanyl Citrate Pf 100 Mcg/2 Ml Vial) 50 mcg IV NOW STA Stop: 01/02/24 11:24 Last Admin: 01/02/24 11:45 Dose: 50 mcg Documented By: LKD ECG Additional Comments: EKG per my interpretation reveals sinus bradycardia w/ HR 57bpm, inferior injury pattern. Code Status & VTE Plan Code Status FULL CODE Supervising Physician Co-Signing Physician Notes 63-year-old male with PMH of acute anterior STEMI status post stent x 2, HTN, HLD, COPD, TIA, bilateral carotid stenosis, chronic idiopathic constipation, GERD, left ureteral cancer undergoing immunotherapy, osteoarthritis, poliomyelitis, history of tobacco use disorder presented to the ED at referral of [facility] office due to elevated blood pressure. His blood pressure was with SBP of greater than 180 mmHg at arrival at his office today, after intravesical BCG was initiated, his blood pressure spiked up to with SBP greater than 205 mmHg. The therapy was terminated prematurely and patient was sent to the ED for further evaluation. Patient denies any recent fever/sore throat/cough/acute changes in his bowel or bladder habit/chest pain/shortness of breath/dizziness. Patient does report on and off headache going on for more than a year. In the ED, CXR and CT head was done which was negative for acute finding. Labs fairly WNL, troponin gradually uptrending from 22-25-28 EKG per my interpretation with about [address] depression in aVL lead, ? inferior injury. Patient denies any chest pain or funny sensation in the chest or chest discomfort or palpitation or shortness of breath. Patient reports compliance with his DAPT and blood pressure medications at home. Rule out ACS: Trend troponin, ECG in the evening and in the morning, cardiology consult, echo. EKG prn w/ chest pain. NPO midnight. Hypertensive urgency: Continue home blood pressure medications, labs in a.m., as needed blood pressure medication with hydralazine 5 Mg every 4 hours as needed for SBP greater than 165 mmHg. Patient reports quitting smoking 2 years ago, denies alcohol use, reports using 2 to 3 puffs of marijuana daily. Full code On exam: GENERAL: Alert and oriented x3. NAD, on RA. HEENT: No pallor, no icterus. Pupils equal, round and reactive to light. Oral mucosa moist. NECK: No JVD, no neck masses. HEART: S1 and S2 heard. Regular rate and rhythm. No murmur, no gallop. RESPIRATORY SYSTEM: Normal AP diameter. No accessory muscle use. No wheezing, no crackles. ABDOMEN: Soft, bowel sounds present, nontender, no distention. CENTRAL NERVOUS SYSTEM: No facial droop. Speech is clear. Obeys simple commands. Moves extremities. power equal and 5/5 b/l ue and le. EXTREMITIES: No edema, no erythema seen. LLE muscle wasting noted (h/o polio). I have seen and examined the patient and have discussed the case with the provider above. I agree with the assessment and plan as stated. (4) CAD (coronary artery disease) Associated angina: unspecified whether angina present Coronary Disease- Associated Artery/Lesion type: unspecified vessel or lesion type [place] vs. transplanted heart: [place] heart Qualified Code(s): I25.10 - Atherosclerotic heart disease of [place] coronary artery without angina pectoris (5) COPD (chronic obstructive pulmonary disease) COPD type: unspecified COPD Qualified Code(s): J44.9 - Chronic obstructive pulmonary disease, unspecified
--- NOTE | 2024-01-02 17:44 | Electrocardiogram Report ---
Test Reason : Blood Pressure : / mmHG Vent. Rate : 057 BPM Atrial Rate : 057 BPM P-R Int : 170 ms QRS Dur : 088 ms QT Int : 400 ms P-R-T Axes : 064 -05 112 degrees QTc Int : 389 ms Sinus bradycardia Anteroseptal infarct (cited on or before 05-OCT-2023) Evolviing anterior infarct Abnormal ECG When compared with ECG of 17-OCT-2023 14:22, Incomplete right bundle branch block is no longer Present Confirmed by Swapnil Adams ([id number]) on 01/02/2024 5:43:58 PM Referred By: Latanya Garcia Confirmed By:Crispin Adams
[2024-01-02] MEDS ORDERED: ALBUTEROL HFA 8 GM INHALER INH PRN (18:09)
[2024-01-02] MEDS ORDERED: MAGNESIUM HYDROXIDE SUSP 30 ML UDC PO PRN (18:09)
[2024-01-02] MEDS ORDERED: ONDANSETRON INJ 2 MG/ML 2 ML VIAL IV PRN (18:09)
[2024-01-02] MEDS ORDERED: hydrALAZINE HCL 20 MG/ML VIAL IM PRN (18:09)
[2024-01-02] MEDS ORDERED: ACETAMINOPHEN 325 MG TAB PO PRN (18:09)
[2024-01-02] MEDS ORDERED: ALUMINUM/MAGNESIUM SUSP 30 ML UDC PO PRN (18:09)
[2024-01-02] MEDS ORDERED: DICLOFENAC SOD 1% GEL 100 GM TUBE EXT PRN (18:09)
[2024-01-02] MEDS ORDERED: traMADol HCL 50 MG TABLET PO PRN (18:09)
[2024-01-02] MEDS: TICAGRELOR 90 MG TAB PO SCH (19:23)
[2024-01-02] MEDS: ASPIRIN 81 MG ECTAB PO SCH (19:24)
[2024-01-02] MEDS: ATORVASTATIN 40 MG TAB PO SCH (19:26)
--- NOTE | 2024-01-02 21:57 | Communication Note ---
Date of Service: January 02, 2024 Notified by RN of patient leaving ER AGAINST MEDICAL ADVICE. Patient not willing to wait for doctor to speak with him as per RN. Patient aggravated by wait time and unavailability of rooms on the floor. Discharge summary to be completed by Dr. Echeverria.
[2024-01-03] MEDS ORDERED: METOPROLOL SUCC 50MG EXT REL TAB PO SCH (09:00)
[2024-01-03] MEDS ORDERED: PARoxetine HCL 10 MG TAB PO SCH (09:00)
[2024-01-03] MEDS ORDERED: POLYETHYLENE (MIRALAX) 17 GM PACK PO SCH (09:00)
[2024-01-03] MEDS ORDERED: ASPIRIN 81 MG ECTAB PO SCH (09:00)
[2024-01-03] MEDS ORDERED: PANTOprazole 40 MG TAB PO SCH (09:00)
[2024-01-03] MEDS ORDERED: EZETIMIBE 10 MG TAB PO SCH (09:00)
[2024-01-03] MEDS ORDERED: LOSARTAN POTASSIUM 25 MG TAB PO SCH (09:00)
[2024-01-03] MEDS ORDERED: UMECLIDINIUM BROMIDE 62.5MCG/BLISTER 7 PUFFS/INHALER INH SCH (09:00)
--- NOTE | 2024-01-03 11:10 | Discharge Summary ---
Date of Service January 02, 2024 Admission HPI Per Admitting Provider Paul Wright is a 63 y/o M with PMHx of STEMI s/p GLORY x 2 to LAD [September 2023], hyperlipidemia, HTN, COPD, hx of TIA, bilateral carotid stenosis, chronic idiopathic constipation, GERD, history of left ureteral cancer, osteoarthritis, history of poliomyelitis, history of tobacco use disorder, DDD and other problems listed below who presented to the ED for evaluation of elevated BP via referral from cancer center. History obtained from the patient, /daughter in room and associated chart review. Patient seen with Dr. Echeverria. Patient states he was at the [facility] receiving intrabladder BCG therapy for a bladder mass when his blood pressure was noted to be 205/100. He is currently undergoing maintenance BCG x 3 weeks, today being his first session. He mentions that he typically receives some lidocaine to help with the pain associated with the procedure (was previously treated for ureteral CA w/ similar treatments), however did not receive any lidocaine prior to his treatment today. He reports he was in excruciating pain throughout the procedure. Treatment typically last 2 hours, but he was only able to withstand treatment for an hour before his blood pressure started to rise. Denies any chest pain or SOB. Takes aspirin and Brilinta as prescribed, has not missed a dose per patient. Took his blood pressure medications this morning. states his BP was high even before his treatment, known hx of "white coat syndrome." He was pretty nervous to undergo treatment today. Had STEMI in September and is now s/p cardiac cath w/ 2 GLORY placed in the LAD artery. Has since been following w/ Dr. Khan. Was on colchicine in the past, no longer taking it. No fever, sore throat or cough. No dysuria. Increase in appetite recently. No bowel habit changes. Has been having headaches in the posterior region of his head intermittently for the past year. Smoked for 40 years, quit ~2 years ago. No alcohol use. Uses marijuana, 2 or 3 puffs/day to help w/ chronic arthritis. Eats some salty foods regularly. [place] shaky before his treatment, got worse during the treatment. Hx of polio, chronic atrophy of muscles in L leg. Has some weakness, pain at baseline - no acute changes. Admission Exam Per Admitting Provider GENERAL: Alert and oriented x3. NAD, on RA. HEENT: No pallor, no icterus. Pupils equal, round and reactive to light. Oral mucosa moist. NECK: No JVD, no neck masses. HEART: S1 and S2 heard. Regular rate and rhythm. No murmur, no gallop. RESPIRATORY SYSTEM: Normal AP diameter. No accessory muscle use. No wheezing, no crackles. ABDOMEN: Soft, bowel sounds present, nontender, no distention. CENTRAL NERVOUS SYSTEM: No facial droop. Speech is clear. Obeys simple commands. Moves extremities. power equal and 5/5 b/l ue and le. EXTREMITIES: No edema, no erythema seen. LLE muscle wasting noted (h/o polio). Principal Diagnosis Rule out ACS Discharge Exam undersigned was off duty when pt left ama Discharge Data Allergies Allergy/AdvReac Type Severity Reaction Status Date / Time rosuvastatin [From Crestor] AdvReac Intermediate Headache Verified 11/05/23 16:14 varenicline [From Chantix] AdvReac Intermediate nightmares Verified 11/05/23 16:14 bee venom Allergy Severe Swelling Uncoded 11/05/23 16:14 of Lip/Tongue/Throat Consultations 01/02/24 15:26 ED Decision to Admit Stat 01/02/24 16:13 Consult Cardiology Routine Ordered Studies 01/02/24 12:45 CT head/brain wo con Stat Hospital Course (1) Hypertensive urgency: (2) Mass of bladder: (3) History of ST elevation myocardial infarction (STEMI): (4) CAD (coronary artery disease): (5) COPD (chronic obstructive pulmonary disease): Plan Pt was admitted for this: Paul Wright is a 63 y/o M with PMHx of STEMI s/p GLORY x 2 to LAD [September 2023], hyperlipidemia, HTN, COPD, hx of TIA, bilateral carotid stenosis, chronic idiopathic constipation, GERD, history of left ureteral cancer, osteoarthritis, history of poliomyelitis, history of tobacco use disorder, DDD and other problems listed below who presented to the ED for evaluation of elevated BP via referral from cancer center. Patient was receiving intrabladder BCG therapy for a bladder mass when his BP was noted to be 205/110 by staff and he was ultimately sent here. Hypertensive urgency Hx of Hypertension (HTN) Rule-out ACS -BP 159/98 on admission -Trop 28.4 on admission -EKG shows possible inferior injury pattern per my interpretation -Cardiology consulted --> Spoke w/ Dr. 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 Adan) -No urinary concerns at this time -Monitor I&Os given hx CAD Hyperlipidemia History of STEMI --> Anterior STEMI s/p cardiac cath w/ placement of 2 GLORY in LAD in September 2023. 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 * Recommended that he follows up w/ PCP upon discharge to discuss potential for increasing SSRI dosing. Anxiety has been worse lately, family and patient thinks he needs to change his regimen. DVT Prophylaxis: SCDs Code Status: Full Code PCP: JACOB Lee Dispo: Admit to Med/Surg w/ Telemetry Patient seen in collaboration with Dr. Echeverria. Please see addendum. I spent a total of 75 minutes coordinating, documenting, and providing care for this patient excluding time spent in the performance of separately billed services. This included personally reviewing all current laboratories and imaging studies, medical reconciliation, outpatient chart review and discussion with specialists. This chart was completed in part utilizing Speech Voice Recognition Software. Grammatical errors, random word insertions, pronoun errors, and incomplete sentences are an occasional consequence of this system due to software limitations, ambient noise, and hardware issues. Any formal questions or concerns about the content, text, or information contained within the body of this dictation should be directly addressed to the provider for clarification. Addendum: pt left ama per communication note per scissors sharpener. Home Health Attestation I certify that this patient is under my care and that I, or a physicians child nutrition assistant working with me, had a face to-face encounter that meets the home health [id number] encounter requirements with this patient. The encounter with the patient was in whole, or in part, for the following medical condition, which is the primary reason for home health care (list medical condition): I certify that, based on my findings, the following services are medically necessary home health services: My clinical findings support the need for the above services because: Further, I certify that my clinical findings support that this patient is homebound (i.e. absences from home require considerable and taxing effort and are for medical reasons or nondenominational services or infrequently or of short duration when for other reasons) because: Certification for Home Health Services: Based on the above findings, I certify that this patient is confined to the home and needs intermittent custodial care, physical therapy and/or speech therapy or continues to need occupational therapy. The patient is under my care, and I have initiated the establishment of the plan of care. This patient will be followed by a physician who will periodically review the plan of care. Total Time Total Time Spent Total Time Spent (In Minutes): 15 Discharge Plan Discharge Items Patient Disposition: Against Medical Advice Reason For Visit: HTN Activity: Resume your previous activity Non-emergency contact: Primary Care Provider Follow-up/Referrals: Latanya Garcia CRNP [Primary Care Provider] - Pending Studies at Discharge: No Stand-Alone Forms: My ciValue, Smoking Cessation Medications and DC Order Prescriptions: Continued ezetimibe [Zetia] 10 mg tablet 10 mg PO QAM Qty: 90 2RF Brilinta 90 mg tablet 90 mg PO BID Qty: 90 3RF Spiriva Respimat 2.5 mcg/actuation mist 2 puff inhalation QAM Qty: 4 0RF albuterol sulfate 90 mcg/actuation HFA aerosol inhaler 2 puff inhalation Q6H PRN (Reason: Shortness Of Breath Or Wheezing) Qty: 18 3RF aspirin [Adult Aspirin Regimen] 81 mg tablet,delayed release (DR/EC) 81 mg PO DAILY Qty: 30 11RF atorvastatin 80 mg tablet 80 mg PO QPM acetaminophen [Tylenol Arthritis Pain] 650 mg tablet extended release 1,300 mg PO Q12H PRN (Reason: Pain) metoprolol succinate 50 mg tablet extended release 24 hr 50 mg PO QAM losartan 25 mg tablet 25 mg PO QAM paroxetine HCl 10 mg tablet 10 mg PO QAM tramadol 50 mg tablet 50 mg PO Q6H PRN (Reason: Pain) polyethylene glycol 3350 [Miralax] 17 gram/dose Powder 17 g PO DAILY epinephrine [EpiPen] 0.3 mg/0.3 mL auto-injector 0.3 mg IM DIRECTED PRN (Reason: Anaphylaxis) diclofenac sodium [Voltaren Arthritis Pain] 1 % gel 2 g topical QID PRN (Reason: Pain) Rx Instructions: Apply 2 grams 4x/daily to hands as needed for pain. omeprazole 20 mg capsule,delayed release(DR/EC) 20 mg PO QAM Qty: 30 0RF Discharge Orders: Left Against Medical Advice (Routine); Ordered 01/02/24 Ordered By: Deny Oswald Admission Data Admit Date/Time: 01/02/24 16:07 Attending Provider: Kori Echeverria Admit Provider: Kori Echeverria Primary Care Provider: Latanya Garcia Other Providers: wSapnil Adams; Kori Echeverria
--- OUTSIDE RECORDS SUMMARY | 2024-01-03 11:35 | External Medical Summary | Summary of Care ---
Author Name Unknown Organization [facility] Address [address] [place] [address] Phone [phone] Care Team Providers Care Recruiting Coordinator Name Role Phone Latanya Garcia Carol JACOB Primary Care Provider Reason for Visit * Reason Onset Date Comments TRIAGE 12/24/2023 Encounter Details Date Type Department Care Team (Late st Contact Info) Description 12/24/2023 Telephone [facility], [facility] [address] [facility] [address] [facility], Scheduling [address] [place] [address] TRIAGE Allergies Active Allergy Reactions Criticality Noted Date Comments Bee Venom Edema face/lips/tongue,Tachycardia High 0 09/08/2021 Varenicline 08/24/2022 Bad dreams Rosuvastatin 08/24/2022 UNKNOWN documented as of this encounter (statuses as of 01/01/2024) Medications Medication Sig Dispensed Refills Start Date End Date Status Albuterol Sulfate HFA 108 (90 Base) MCG/ACT Inhalation Aerosol Solution 10/26/2021 Active Tiotropium [place] Monohydrate 2.5 MCG/ACT Inhalation Aerosol Solution (Spiriva Respimat) DAILY IN THE MORNING 03/06/2022 Active Polyethylene Glycol 3350 17 GM/SCOOP Oral Powder Take 17 g by mouth in the morning. Active EpiPen 2-Alonzo 0.3 MG/0.3ML Injection Solution Auto-injectorIndicatio ns:Bee sting allergy For a severe reaction: Place orange end against the outer thigh, press firmly, hold in place for 10 seconds and go to the Emergency room. 1 Each 2 10/22/2022 Active Acetaminophen ER 650 MG Oral Tablet Extended Release Take 1 Tablet by mouth in the morning. 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 60 Each 5 04/02/2023 Active Atorvastatin Calcium 80 MG Oral Tablet (Lipitor) Take 1 Tablet by mouth every evening. 90 Tablet 3 05/08/2023 Active Omeprazole 20 MG Oral Capsule Delayed Release (PriLOSEC) take 1 capsule by mouth every morning 90 Capsule 1 07/23/2023 Active Ezetimibe 10 MG Oral Tablet (Zetia) Take 1 Tablet by mouth in the morning. 90 Tablet 3 07/29/2023 Active Colchicine 0.6 MG Oral Tablet Take 1 Tablet by mouth in the morning and 1 Tablet before bedtime. 10/08/2023 Active Metoprolol Succinate ER 50 MG Oral Tablet Extended Release 24 Hour (toPROL XL) Take 1 Tablet by mouth in the morning. 10/08/2023 Active Ticagrelor 90 MG Oral Tablet (Brilinta) Take 1 Tablet by mouth in the morning and 1 Tablet before bedtime. 10/06/2023 Active Aspirin 325 MG Oral Tablet Take 2 Tablets by mouth in the morning and 2 Tablets at noon and 2 Tablets in the evening. 10/08/2023 Active Solifenacin Succinate 5 MG Oral Tablet (VESIcare) 1 Tablet. 10/06/2023 Active Phenazopyridine HCl 200 MG Oral Tablet (Pyridium) Take 1 Tablet by mouth 3 times a day as needed for Other (bladder spasms). After meals. 12 Tablet 11/25/2023 Active Ciprofloxacin HCl 500 MG Oral Tablet (Cipro) Take 1 Tablet by mouth in the morning and 1 Tablet before bedtime. 6 Tablet 11/25/2023 Active traMADol HCl 50 MG Oral Tablet (Ultram)Indications:Hi p pain, right,Lumbar radiculopathy Take 1 Tablet by mouth every 8 hours as needed for Pain, Severe. 10 Tablet 12/06/2023 Active Hospital, Clinic, or Other Facility Administered Medication Ordered Dose Route Frequency Start Date End Date Status Albuterol Sulfate (Proventil) (2.5 MG/3ML) 0.083% inhalation solution 2.5 mgIndications:COPD, group A, by 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 ([facility]) 2.5 mg NEBULIZER ONCE PRN 04/02/2023 04/01/2024 Acti ve documented as of this encounter (statuses as of 01/01/2024) Active Problems Problem Noted Date Diagnosed Date Lumbar radiculopathy 12/06/2023 Hip pain, right 12/06/2023 Coronary artery disease invo lving [place] coronary artery of [place] heart without angina pectoris 10/14/2023 [place] (myocardial infarction) 10/14/2023 History of TIA (transient ischemic attack) 10/13 Gastroesophageal reflux disease without esophagi tis 07/03/2023 Dyslipidemia 07/03/2023 Hx of tobacco use, presenting hazards to health 07/03/2023 COPD, group A, by 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 12/31 Overview: Per COPD GOLD Classification DDD (degenerative disc disease), cervical 2022 Ureteral cancer, left 09/21/2022 HTN, goal below 130/80 09/21/2022 Carotid stenosis, bilateral 09/21/2022 Chronic idiopathic constipation 09/21/2022 History of poliomyelitis 09/21/2022 Primary osteoarthritis involving multiple joints 09/21/2022 documented as of this encounter (statuses as of 01/01/2024) Resolved Problems Problem Noted Date Diagnosed Date Resolved Date Bladder mass 02/22/2023 07/03/2023 Primary osteoarthritis of fi rst carpometacarpal joint of right hand 12/25/2022 1209/2022 RUQ abdominal pain 09/21/2022 12/13/202 3 COPD, severity to be determined 09/21/2022 01/03/2023 Overview: Per COPD GOLD Classification TIA (transient ischemic attack) 08/24/2022 10/14/2023 Overview: AT 47YO- no residual affects documented as of this encounter (statuses as of 01/01/2024) Immunizations Name Administration Dates Next Due COVID-19 mRNA, LNP-s, No Pre serve, 2-Dose Series ([employer]plays) 06/21/2021,10/08/2020,09/17/2020 COVID-19, LNP-s, No Preserve , Giovani-sucrose, Ages 12+ ([employer]plays) 12/15/2021 Covid-19, Mrna, Lnp-s, Pf, B ivalent, 30 Mcg, IM, 12 yrs and above ([employer] Displays) 05/15/2022 Pneumococcal Conjugate Vacci ne, 20-valent ([id number]) 12/25/2022 Seasonal Influenza, PF, 6 M & [...] encounter Miscellaneous Notes * Telephone Encounter - Anaya Otero LPN - 01/01/2024 11:05 AM EDT There is no documentation that I see in chart regarding forms being dropped off at either location? * Telephone Encounter - Ida Kapoor OSA - 01/01/2024 10:56 AM EDT PT calling back in to check on the forms, pt states he's been trying to get ahold of kathie about this and has not gotten any calls back. Pt states it was sent to the [place] office to be taken care of but he has not heard back from either location. Please advise * Telephone Encounter - Derrell Pineda OSA - 12/24/2023 3:48 PM EDT Pt is calling back to talk to kathie about some paperwork that needs to be fill out. Please reach outto him. Thank You Derrlel * Telephone Encounter - Brandy Lundberg OSA - 12/24/2023 7:54 AM EDT Patient is asking for Kathie to call him he is asking if she filled out paperwork for [employer] [facility] he states he called them and they did not receive it yet documented in this encounter Plan of Treatment Upcoming Encounters Date Type Department Care Team (Late st Contact Info) Description 01/27/2024 8:45 AM EDT Office Visit Interventional Pain Center, [facility] [address] [facility] [place] [address] Rafael Rincon MD [address] [facility] [place] [address] 02/18/2024 1:15 PM EDT Office Visit Hematology/Oncology [facility] [address] [facility] [place] [phone] Jacob Rhodes MD [address] [facility] [place] [address] 02/25/2024 2:15 PM EDT Office Visit Urology, [facility] [address] [facility] [place] [address] Joshua Adan MD [address] [facility] [address] [place] [address] Scheduled Procedures Name Priority Associated Diagnoses Date/Ti me COLONOSCOPY FLEXIBLE PROXIMAL DIAGNOSTIC Recall History of colon polyps Health Maintenance Due Date Last Done Comments HIV Screening 1973 Alpha-1 Antitrypsin 02/17/1976 Hepatitis C Screening 02/17/1976 Cologuard 2003 Fecal Occult Blood Test 2003 Sigmoidoscopy 2003 *COPD SEVERITY VERIFIED BY PFT 09/24/2022 COVID-19 Vaccine ( season) 2023 05/15/2022, 12/15/2021, 06/21/2021, Additional history exists Depression Screening 12/05/2023 12/04/2022 GFR 03/06/2024 03/06/2023, 01/19, 08/24/2022, Additional history exists O2 ASSESSMENT COMPLETED IN PAST YEAR FOR COPD 03/13/2024 03/13/2023 DTaP,Tdap,and Td Vaccines (2 - Td or Tdap) 05/10/2025 05/10/2015 Albumin/Creatinine Ratio 12/25/2025 12/25/2022 Diabetes Screening 03/06/2026 03/06/2023, 0 08/24/2022, 11/05/2011 Colonoscopy 09/26/2027 09/25/2022, 09/25/2022 Colorectal Cancer Screening 09/26/2027 Zoster Vaccines Completed 02/01/2022, 09/25/2021 Lung Cancer Screening Completed 08/29/2022 RETIRED - COLONOSCOPY-EVERY 5 YRS AGES 18-100 Discontinued 09/25/2022, 09/25/2022 Pneumococcal Vaccine: 65+ Years Completed 12/25/2022 AAA Screening Completed 03/07/2023, 02/06/2023 Influenza Vaccine (FLU shot) Completed 04/02/2023, 05/15/2022, 05/03/2020, Additional history exists GARDASIL-HPV IMMUNIZATION SERIES Aged Out No longer eligible based on patient's age to complete this topic Hepatitis B Aged Out No longer eligi ble based on patient's age to complete this topic MENINGOCOCCAL (MENACTRA/MENVEO) Aged Out No longer eligible based on patient's age to complete this topic documented as of this encounter Medical Devices Not on filedocumented as of this encounter Advance Directives * Full Code (Latest Code Status on File) Date Activated Date Inactivated Comments 03/13/2023 9:32 AM 03/13/2023 4:39 PM This order r eflects the patients wishes and were consensually agreed upon. Question Answer Comments Discussion of Advance Directives occurred with: Patient * Full Code Date Activated Date Inactivated Comments 03/13/2023 7:07 AM 03/13/2023 9:32 AM This order r eflects the patients wishes and were consensually agreed upon. Question Answer Comments Discussion of Advance Directives occurred with: Patient * Full Code Date Activated Date Inactivated Comments 10/22/2022 8:32 AM 10/22/2022 2:13 PM This order ref lects the patients wishes and were consensually agreed upon. Question Answer Comments Discussion of Advance Directives occurred with: Patient * Full Code Date Activated Date Inactivated Comments 10/22/2022 6:33 AM 10/22/2022 8:32 AM This order ref lects the patients wishes and were consensually agreed upon. Question Answer Comments Discussion of Advance Directives occurred with: Patient Care Teams Recruiting Coordinator Relationship Specialty Start Date End Date Latanya Garcia CRNP [address] [place] [address] PCP - General Nurse Practitioner 12/06/23 documented as of this encounter
--- OUTSIDE RECORDS SUMMARY | 2024-01-03 11:36 | External Medical Summary | Summary of Care ---
Author Name Unknown Organization [facility] Address [address] [place] [address] Phone [phone] Care Team Providers Care Rn Patient Services Name Role Phone Latanya Garcia Carol JACOB Primary Care Provider Reason for Visit * Reason Onset Date Comments TRIAGE 12/24/2023 Encounter Details Date Type Department Care Team (Late st Contact Info) Description 12/24/2023 Telephone Urology, [facility] [address] Services, Scheduling [address] [place] [address] TRIAGE Allergies Active Allergy Reactions Criticality Noted Date Comments Bee Venom Edema face/lips/tongue,Tachycardia High 0 09/08/2021 Varenicline 08/24/2022 Bad dreams Rosuvastatin 08/24/2022 UNKNOWN documented as of this encounter (statuses as of 01/01/2024) Medications Medication Sig Dispensed Refills Start Date End Date Status Albuterol Sulfate HFA 108 (90 Base) MCG/ACT Inhalation Aerosol Solution 10/26/2021 Active Tiotropium [place] Monohydrate 2.5 MCG/ACT Inhalation Aerosol Solution (Spiriva [...] MCG/ACT Inhalation Aerosol Powder Breath Activated (Advair Diskus)Indications: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, 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, by 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 ([facility]) Inhale 1 Puff by mouth in the [...] mgIndications:COPD, group A, by 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 ([facility]) 2.5 mg NEBULIZER ONCE PRN 04/02/2023 04/01/2024 Acti ve documented as of this encounter (statuses as of 01/01/2024) Active Problems Problem Noted Date Diagnosed Date Lumbar radiculopathy 12/06/2023 Hip pain, right 12/06/2023 Coronary artery disease invo lving [place] coronary artery of [place] heart without angina pectoris 10/14/2023 [place] (myocardial infarction) 10/14/2023 History of TIA (transient [...] mRNA, LNP-s, No Pre serve, 2-Dose Series (Hotel[employer]) 06/21/2021,10/08/2020,09/17/2020 COVID-19, LNP-s, No Preserve , Giovani-sucrose, Ages 12+ ([employer]el[employer]) 12/15/2021 Covid-19, Mrna, Lnp-s, Pf, B ivalent, 30 Mcg, IM, 12 yrs and above ([employer]el[employer]) 05/15/2022 Pneumococcal Conjugate Vacci ne, 20-valent ([id number]) 12/25/2022 Seasonal Influenza, PF, 6 M & [...] Pt states it was sent to the [place] office to be taken care of but he has not heard back from either location. Please advise * Telephone Encounter - Derrell Pineda OSA - 12/24/2023 3:48 PM EDT Pt is calling back to talk to kathie about some paperwork that needs to be fill out. Please reach outto him. Thank You Derrell * Telephone Encounter - Brandy Lundberg OSA [...] AM EDT Office Visit Interventional Pain Center, [facility] [address] [facility] [place] [address] Rafael Rincon MD [address] [facility] [place] [address] 02/18/2024 1:15 PM EDT Office Visit Hematology/Oncology [facility] [address] [facility] [place] [phone] Jacob Rhodes MD [address] [facility] [place] [address] 02/25/2024 2:15 PM EDT Office Visit Urology, [facility] [address] [facility] [place] [address] Joshua Adan MD [address] [facility] [address] [place] [address] Scheduled Procedures Name Priority Associated Diagnoses Date/Ti [...] Advance Directives occurred with: Patient Care Teams Rn Patient Services Relationship Specialty Start Date End Date Latanya Garcia CRNP [address] [place] [address] PCP - General Nurse Practitioner 12/06/23 documented as of this encounter
== END 2024-01-02 21:05 | disposition left against medical advice (07) | DRG 305 ==
LOC: ED 10:32 → INTOOBSV 16:07 → EDINP 16:07